=== PATIENT | male | born 1990 | race Caucasian/White ===

== ENCOUNTER 2018-03-31 16:56 | Inpatient (IN) | payer MEDICAID, OTHER ==
[2018-03-31] MEDS ORDERED: Sodium Chloride 0.9% 1,000 ML IV STA (17:21)
[2018-03-31] MEDS ORDERED: Sodium Chloride 0.9% 2,000 ML IV STA (17:23)
[2018-03-31 17:31] LABS: VENOUS BLOOD GAS BASE EXCESS -31.4 mmol/L (0.0-2.0); VENOUS BLOOD GAS PO2 85 mm/Hg (30-55)
--- NOTE | 2018-03-31 17:41 | RAD ---
HISTORY: DKA COMPARISON: Chest radiograph dated 07/20/2016. FINDINGS: LUNGS: No active pulmonary disease. PLEURA: No significant pleural effusion identified, no pneumothorax apparent. CARDIOVASCULAR: Normal. OSSEOUS STRUCTURES: No significant abnormalities. VISUALIZED UPPER ABDOMEN: Normal. OTHER FINDINGS: None. IMPRESSION: No active disease.
[2018-03-31 17:49] LABS: ALB/GLOB RATIO 1.5 (1.1-1.8); ALBUMIN 5.2 g/dL (3.0-4.8); ALT/SGPT 27 U/L (7-56); AST/SGOT 22 U/L (17-59); BLOOD UREA NITROGEN 10 mg/dL (7-21); CALCIUM 9.8 mg/dL (8.4-10.5); GFR AFRICAN-AMERICAN > 60; GFR NON-AFRICAN AMERICAN > 60
[2018-03-31 17:51] LABS: RBC 5.49 10^6/uL (3.5-6.1)
[2018-03-31 17:52] LABS: BASO # 0.04 K/mm3 (0.0-2.0); BASO % 0.1 % (0.0-3.0); GRAN # 22.98 (1.4-6.5); GRAN % 85.7 % (50.0-68.0); HEMOGLOBIN 16.4 g/dL (14.0-18.0); LYMPH # 2.2 (1.2-3.4); LYMPH % 8.3 % (22.0-35.0); MEAN CELL VOLUME 88.2 fl (80.0-105.0); MEAN CORPUSCULAR HEMOGLOBIN 29.9 pg (25.0-35.0); MEAN CORPUSCULAR HGB CONC 33.9 g/dl (31.0-37.0); MEAN PLATELET VOLUME 9.4 fl (7.0-11.0); MONO # 1.6 (0.1-0.6); MONO % 5.9 % (1.0-6.0); RED CELL DISTRIBUTION WIDTH 13.5 % (11.5-14.5)
[2018-03-31 17:53] LABS: WHITE BLOOD COUNT 26.8 10^3/ul (4.5-11.0)
[2018-03-31] MEDS: Insulin Regular 100 UNITS in Sodium Chloride 0.9% 99 ML IV PRN (18:01)
[2018-03-31] MEDS ORDERED: Etomidate 20 mg/10ml Inj IV ONE (18:09)
[2018-03-31] MEDS ORDERED: Propofol 10 mg/ml Inj (20 ML) ONE (18:09)
[2018-03-31] MEDS ORDERED: Sodium Bicarbonate (8.4%) 50 Meq Syringe IVP ONE (18:13)
[2018-03-31] MEDS ORDERED: Rocuronium 10 mg/ml (5 ml) ONE (18:19)
[2018-03-31] MEDS ORDERED: Sodium Chloride 0.9% 3,000 ML IV STA (18:26)
--- NOTE | 2018-03-31 18:29 | CP.PCM.HP ---
History of Present Illness - History of Present Illness History of Present Illness: Duglas Gifford PGY1 ICU Consult Note for Dr. Roberson Mr. Field is a 27yo M with a PMH of DM Past Patient History - Infectious Disease Hx of Infectious Diseases: None - Past Medical History & Family History Past Medical History?: Yes - Past Social History Smoking Status: Never Smoked - CARDIAC Hx Hypercholesterolemia: Yes - PULMONARY Hx Respiratory Disorders: No - NEUROLOGICAL Hx Neurological Disorder: No - HEENT Hx HEENT Problems: No - RENAL Hx Chronic Kidney Disease: No - ENDOCRINE/METABOLIC Hx Diabetes Mellitus Type 1: Yes (on humalog & lantus) - HEMATOLOGICAL/ONCOLOGICAL Hx Blood Disorders: Yes Other/Comment: Vit D def - INTEGUMENTARY Hx Dermatological Problems: No - MUSCULOSKELETAL/RHEUMATOLOGICAL Hx Musculoskeletal Disorders: No Hx Falls: No - GASTROINTESTINAL Hx Gastrointestinal Disorders: No - GENITOURINARY/GYNECOLOGICAL Hx Genitourinary Disorders: Yes Other/Comment: undescended testes - PSYCHIATRIC Hx Psychophysiologic Disorder: No Hx Substance Use: No - SURGICAL HISTORY Hx Surgeries: No - ANESTHESIA Hx Anesthesia: No Meds Allergies/Adverse Reactions: Allergies Allergy/AdvReac Type Severity Reaction Status Date / Time No Known Allergies Allergy Verified 03/06/18 23:23 Results - Vital Signs Recent Vital Signs: Last Vital Signs Temp 97.2 F L 03/31/18 17:24 Pulse 129 H 03/31/18 17:24 Resp 22 03/31/18 17:24 BP 126/92 H 03/31/18 17:24 Pulse Ox 100 03/31/18 17:24 - Labs Result Diagrams: 03/31/18 17:03 03/31/18 17:03 Labs: Laboratory Results - last 24 hr 03/31/18 03/31/18 03/31/18 17:03 17:03 17:03 WBC 26.8 H* D RBC 5.49 Hgb 16.4 Hct 48.4 MCV 88.2 MCH 29.9 MCHC 33.9 RDW 13.5 Plt Count 505 H MPV 9.4 Gran % 85.7 H Lymph % (Auto) 8.3 L [place] % (Auto) 5.9 Eos % (Auto) 0.0 L Baso % (Auto) 0.1 Gran # 22.98 H Lymph # (Auto) 2.2 Story # (Auto) 1.6 H Eos # (Auto) 0.0 Baso # (Auto) 0.04 pO2 85 H VBG pH 6.80 L* VBG pCO2 15.0 L* VBG HCO3 2.3 L VBG Total CO2 2.8 L VBG O2 Sat (Calc) 96.1 H VBG Base Excess -31.4 L VBG Potassium 6.1 H Sodium 135.0 145 Chloride 105.0 106 Glucose 560 H* D Lactate 2.4 H FiO2 21.0 Potassium 6.1 H* D Carbon Dioxide < 5 L D Anion Gap 40 H BUN 10 Creatinine 1.0 Est GFR ( Amer) > 60 Est GFR (Non-Af Amer) > 60 Random Glucose 551 H* D Calcium 9.8 Magnesium 2.5 H Total Bilirubin 0.5 AST 22 ALT 27 Alkaline Phosphatase 194 H D Total Protein 8.7 H Albumin 5.2 H Globulin 3.5 Albumin/Globulin Ratio 1.5 Venous Blood Potassium 6.1 H
--- NOTE | 2018-03-31 18:30 | CP.PCM.CON ---
<ИринаDuglas - Last Filed: 03/31/18 18:30> History of Present Illness - History of Present Illness History of Present Illness: Duglas Gifford PGY1 ICU Consult Note for Dr. Roberson Mr. Field is a 27yo M with a PMH of DM1 and medication non-compliance with frequent hospital [place] who is brought in by his father for shortness of breath. ICU is consulted and patient is seen in ICU. Patient is noted to be in respiratory distress and is minimally responsive to questions. Father states that the patient doesn't live with him and he's unsure of what medications he's taking or if he's been compliant but states he was just discharged from a hospital in [place]. ROS was limited due to patient's condition. Labs in ED noted pH 6.8, glucose 551, AG 35. Patient was receiving 3L of NS fluids at time of arrival. Also started on insulin drip; Potassium noted to be 6.1. Patient was intubated in ED to protect airway and due to his mental status. Review of Systems - Review of Systems Systems not reviewed;Unavailable: Acuity of Condition Past Patient History - Infectious Disease Hx of Infectious Diseases: None - ENDOCRINE/METABOLIC Hx Diabetes Mellitus Type 1: Yes (non-compliant with medications) - HEMATOLOGICAL/ONCOLOGICAL Other/Comment: Vit D def - ANESTHESIA Hx Anesthesia: No Meds Allergies/Adverse Reactions: Allergies Allergy/AdvReac Type Severity Reaction Status Date / Time No Known Allergies Allergy Verified 03/06/18 23:23 - Medications Medications: Current Medications Insulin Human Regular 100 (units/ Sodium Chloride) 100 mls @ 3 mls/hr IV .Q24H PRN; Protocol; 3 UNITS/HR PRN Reason: TITRATE PER MD ORDER Sodium Chloride (Sodium Chloride 0.9%) 2,000 mls @ 999 mls/hr IV .Q2H1M STA Stop: 03/31/18 19:23 Sodium Chloride (Sodium Chloride 0.9%) 3,000 mls @ 999 mls/hr IV .Q3H1M STA Stop: 03/31/18 21:26 Physical Exam - Constitutional Appears: In Acute Distress - Head Exam Head Exam: NORMAL INSPECTION - Eye Exam Eye Exam: Normal appearance - ENT Exam ENT Exam: Mucous Membranes Dry - Neck Exam Neck exam: Positive for: Normal Inspection - Respiratory Exam Respiratory Exam: Respiratory Distress - Cardiovascular Exam Cardiovascular Exam: Tachycardia - GI/Abdominal Exam GI & Abdominal Exam: Soft. absent: Distended, Tenderness - Extremities Exam Extremities exam: Positive for: normal inspection - Back Exam Back exam: NORMAL INSPECTION - Neurological Exam Neurological exam: Altered Results - Vital Signs Recent Vital Signs: Last Vital Signs Temp 97.2 F L 03/31/18 17:24 Pulse 129 H 03/31/18 17:24 Resp 22 03/31/18 17:24 BP 126/92 H 03/31/18 17:24 Pulse Ox 100 03/31/18 17:24 - Labs Result Diagrams: 03/31/18 17:03 03/31/18 17:03 Labs: Laboratory Results - last 24 hr 03/31/18 03/31/18 03/31/18 17:03 17:03 17:03 WBC 26.8 H* D RBC 5.49 Hgb 16.4 Hct 48.4 MCV 88.2 MCH 29.9 MCHC 33.9 RDW 13.5 Plt Count 505 H MPV 9.4 Gran % 85.7 H Lymph % (Auto) 8.3 L [place] % (Auto) 5.9 Eos % (Auto) 0.0 L Baso % (Auto) 0.1 Gran # 22.98 H Lymph # (Auto) 2.2 [place] # (Auto) 1.6 H Eos # (Auto) 0.0 Baso # (Auto) 0.04 pO2 85 H VBG pH 6.80 L* VBG pCO2 15.0 L* VBG HCO3 2.3 L VBG Total CO2 2.8 L VBG O2 Sat (Calc) 96.1 H VBG Base Excess -31.4 L VBG Potassium 6.1 H Sodium 135.0 145 Chloride 105.0 106 Glucose 560 H* D Lactate 2.4 H FiO2 21.0 Potassium 6.1 H* D Carbon Dioxide < 5 L D Anion Gap 40 H BUN 10 Creatinine 1.0 Est GFR ( Amer) > 60 Est GFR (Non-Af Amer) > 60 Random Glucose 551 H* D Calcium 9.8 Magnesium 2.5 H Total Bilirubin 0.5 AST 22 ALT 27 Alkaline Phosphatase 194 H D Total Protein 8.7 H Albumin 5.2 H Globulin 3.5 Albumin/Globulin Ratio 1.5 Venous Blood Potassium 6.1 H Assessment & Plan - Assessment and Plan (Free Text) Assessment: 27yo M with PMH of DM1 and medication non-compliance presenting in DKA with severe metabolic acidosis, respiratory distress and becoming altered. Leukocytosis and hyperkalemia are also noted. Plan: Neuro monitoring changes in mental status if agitated and at risk for self-extubation, may add sedation maintain normothermia neuro checks CV aggressive fluid resuscitation 3L NS given in ED, 3 more liters ordered for ICU currently no signs of hypotension, but will monitor vital signs closely Pulm patient is intubated and on vent maintain head of bed > 30 deg maintain proper hygiene with chlorhexidine will carry out daily weaning trials off vent GI GI ppx NPO Renal monitor lytes (especially potassium) while on insulin gtt Correct electrolytes monitor u/o Endo cont insulin drip until AG closes ID code sepsis was called will start broad spectrum abx procal ordered blood, urine cultures ordered ID will be consulted Heme leukocytosis noted; sepsis work up ordered monitor CBC Patient will be admitted to ICU for close monitoring Patient was seen and evaluated with attending, Dr. Roberson <Giuliano Roberson - Last Filed: 03/31/18 18:56> Meds - Medications Medications: Current Medications Insulin Human Regular 100 (units/ Sodium Chloride) 100 mls @ 3 mls/hr IV .Q24H PRN; Protocol; 3 UNITS/HR PRN Reason: TITRATE PER MD ORDER Last Admin: 03/31/18 18:01 Dose: 3 mls/hr Sodium Chloride (Sodium Chloride 0.9%) 2,000 mls @ 999 mls/hr IV .Q2H1M STA Stop: 03/31/18 19:23 Last Admin: 03/31/18 17:53 Dose: 999 mls/hr Sodium Chloride (Sodium Chloride 0.9%) 3,000 mls @ 999 mls/hr IV .Q3H1M STA Stop: 03/31/18 21:26 Last Admin: 03/31/18 18:35 Dose: 999 mls/hr Midazolam 100 mg/100ml in NS (Midazolam 100 Mg/100ml In Ns) 100 mg in 100 mls @ 1 mls/hr IV .Q24H PRN; Protocol; 1 MG/HR PRN Reason: Sedation Vancomycin HCl (Vancomycin 1gm) 1 gm in 250 mls @ 167 mls/hr IVPB STAT STA PRN Reason: Protocol Stop: 03/31/18 20:08 Results - Vital Signs Recent Vital Signs: Last Vital Signs Temp 97.2 F L 03/31/18 17:24 Pulse 126 H 03/31/18 18:44 Resp 27 H 03/31/18 18:44 BP 157/75 H 03/31/18 18:44 Pulse Ox 99 03/31/18 18:44 - Labs Result Diagrams: 03/31/18 17:03 03/31/18 17:03 Labs: Laboratory Results - last 24 hr 03/31/18 03/31/18 03/31/18 17:03 17:03 17:03 WBC 26.8 H* D RBC 5.49 Hgb 16.4 Hct 48.4 MCV 88.2 MCH 29.9 MCHC 33.9 RDW 13.5 Plt Count 505 H MPV 9.4 Gran % 85.7 H Lymph % (Auto) 8.3 L [place] % (Auto) 5.9 Eos % (Auto) 0.0 L Baso % (Auto) 0.1 Gran # 22.98 H Lymph # (Auto) 2.2 [place] # (Auto) 1.6 H Eos # (Auto) 0.0 Baso # (Auto) 0.04 pO2 85 H VBG pH 6.80 L* VBG pCO2 15.0 L* VBG HCO3 2.3 L VBG Total CO2 2.8 L VBG O2 Sat (Calc) 96.1 H VBG Base Excess -31.4 L VBG Potassium 6.1 H Sodium 135.0 145 Chloride 105.0 106 Glucose 560 H* D Lactate 2.4 H FiO2 21.0 Potassium 6.1 H* D Carbon Dioxide < 5 L D Anion Gap 40 H BUN 10 Creatinine 1.0 Est GFR ( Amer) > 60 Est GFR (Non-Af Amer) > 60 Random Glucose 551 H* D Calcium 9.8 Magnesium 2.5 H Total Bilirubin 0.5 AST 22 ALT 27 Alkaline Phosphatase 194 H D Total Protein 8.7 H Albumin 5.2 H Globulin 3.5 Albumin/Globulin Ratio 1.5 Venous Blood Potassium 6.1 H Assessment & Plan - Assessment and Plan (Free Text) Plan: Patient seen and examined with resident, agree with note with following additions/exceptions: Patient is 27yo male with PMHx of IDDM, non compliance, multiple hospitalizations for DKA, recent AMA signout at hospital in [place], presents with AMS, SOB as per the patients father. Pt noted to be in resp distress, altered, not following commands, subseuqently intubated in the ER. Labs with severe metabolic derangements, given 3L NS bolus. Currently intubated, sedated, not able to provide history. Patient is afebrile, BP stable. DKA Metabolic Acidosis Severe Sepsis Leukocytosis Dehydration DM Recommend: - vent support, low tidal vol ventilation, obtain ABG, post intubation CXR, duonebs PRN, daily sedation vacation/CPAP trials when appropriate - broad spectrum abx, Vanco, Merrem, check Procal, UA, UCx, BCx, obtain ID consult - aggressive IV hydration, would bolus additional 3L bolus (patient has UOP 1.5L thus far) - IV maintenance - BMP qh4r - NPO - Insulin drip, 0.1u/kg/hr - check Mg, Phos - check HgbA1C, Lipid Panel, TSH - Endo eval - check EKG, troponin - monitor LFTs - FS q1hr - GI ppx - DVT ppx - Monitor in MICU Critical care time 40 minutes
[2018-03-31] MEDS ORDERED: Rocuronium 10 mg/ml (5 ml) IVP STA (18:36)
[2018-03-31] MEDS ORDERED: Propofol 10 mg/ml Inj (20 ML) IVP STA (18:36)
[2018-03-31] MEDS ORDERED: Etomidate 20 mg/10ml Inj IVP STA (18:36)
[2018-03-31] MEDS ORDERED: Vancomycin 1gm in NS 250ml 1 GM/250 ML BAG IVPB STA (18:39)
--- NOTE | 2018-03-31 18:51 | ED PDOC ---
Arrival/HPI - General Chief Complaint: High Blood Sugar Time Seen by Provider: 03/31/18 16:58 Historian: Patient - History of Present Illness Narrative History of Present Illness (Text): 03/31/18 17:17 A 27 year old male, whose past medical history includes IDDM, who is brought in by EMS to the emergency department for AMS. Per family, patient is non- compliant with Insulin. Patient had signed out against medical advice from an ICU unit in [place] 2-3 days ago. Family denies patient any documented fever, and the rest of the history is unattainable at this time secondary to patient's AMS. No PMD Past Medical History - Provider Review Nursing Documentation Reviewed: Yes - Infectious Disease Hx of Infectious Diseases: None - Cardiac Hx Cardiac Disorders: Yes - Pulmonary Hx Respiratory Disorders: No - Neurological Hx Neurological Disorder: No - HEENT Hx HEENT Disorder: No - Renal Hx Renal Disorder: No - Endocrine/Metabolic Hx Diabetes Mellitus Type 1: Yes (non-compliant with medications) - Hematological/Oncological Other/Comment: Vit D def - Integumentary Hx Dermatological Disorder: No - Musculoskeletal/Rheumatological Hx Musculoskeletal Disorders: No Hx Falls: No - Gastrointestinal Hx Gastrointestinal Disorders: No - Genitourinary/Gynecological Hx Genitourinary Disorders: Yes Other/Comment: undescended testes - Psychiatric Hx Psychophysiologic Disorder: No Hx Substance Use: No - Surgical History Other/Comment: Has surgery during childhood but does not remember what - Anesthesia Hx Anesthesia: No - Suicidal Assessment Feels Threatened In Home Enviroment: No Family/Social History - Physician Review Nursing Documentation Reviewed: Yes Family/Social History: No Known Family HX Smoking Status: Never Smoked Hx Alcohol Use: No Hx Substance Use: No Allergies/Home Meds Allergies/Adverse Reactions: Allergies No Known Allergies Allergy (Verified 03/06/18 23:23) Review of Systems - Review of Systems Systems not reviewed;Unavailable: Altered Mental Status Physical Exam Vital Signs Reviewed: Yes Vital Signs Temp Pulse Resp BP Pulse Ox 03/31/18 20:07 127 H 18 123/78 98 03/31/18 18:44 126 H 27 H 157/75 H 99 03/31/18 18:19 124 H 33 H 138/92 H 98 03/31/18 18:14 126 H 36 H 150/83 98 03/31/18 18:08 124 H 44 H 146/55 L 100 03/31/18 17:24 97.2 F L 129 H 22 126/92 H 100 03/31/18 16:58 97.2 F L 125 H 26 H 126/92 H 99 Temperature: Febrile Blood Pressure: Normal Pulse: Tachycardic Respiratory Rate: Tachypneic Appearance: Positive for: Well-Appearing Pain Distress: None Mental Status: Positive for: other (patient in AMS; responsive to painful stimuli) Finger Stick Blood Glucose: 402 - Systems Exam Mouth: Present: Dry Respiratory/Chest: Present: Clear to Auscultation, Tachypneic Cardiovascular: Present: Tachycardic Abdomen: No: Tenderness, Distention, Peritoneal Signs Psychiatric: Present: Other (patient in AMS; responsive to painful stimuli). No : Alert, Oriented x 3 Medical Decision Making ED Course and Treatment: 03/31/18 17:21 Impression: 27 year old male with AMS. Plan: -- EKG -- Chest X-ray -- Labs -- Amidate -- IV Fluids -- Zemuron -- Diprivan -- Vancomycin -- Versed IV Drip's -- Blood Culture -- Urine Culture -- Urinalysis -- Ventilator -- Arterial Blood Gas -- Venous Blood Gas -- Reassess and disposition Progress Notes: EKG: Ordered, reviewed, and independently interpreted the EKG. Rate : 129 BPM Rhythm : Sinus tachycardia. Interpretation : Normal access. Bilateral atrial enlargement. Comparison : No previous EKG for comparison. Patient immediately started on intravenous fluids and Insulin drip. Determined by emergency department and ICU staff that patient requires intubation for impending respiratory failure. 03/31/2018 17:39 Chest X-ray IMPRESSION: No active disease. Dictator: Samy Diego MD PROCEDURE: INTUBATION Performed by the emergency provider Time: 18:00 Timeout: A timeout to verify the correct patient, procedure, and site was performed. Indication: Impending respiratory failure. Pre-oxygenation: [id number] Medications: See MAR for details. ETT Size: 7.5 Confirmation: Cords directly visualized as tube passed, good bilateral breath sounds, positive CO2 detector color change, tube fogging, adequate chest rise, improving pulse oximetry reading, improved skin color, and absence of gastric sounds,. ETT Secured: The cuff was inflated and the tube was secured appropriately at a distance of 22 cm at the lip. Post-Procedure: There were no immediate complications. CXR Confirmation: Yes - Critical Care Critical Care Minutes: 90 minutes - Lab Interpretations Lab Results: 03/31/18 17:03 03/31/18 17:03 Lab Results 03/31/18 18:01: POC Glucose (mg/dL) 402 H* 03/31/18 17:03: Phosphorus 5.8 H 03/31/18 17:03: Sodium 145, Chloride 106, Potassium 6.1 H* D, Carbon Dioxide < 5 L D, Anion Gap 40 H, BUN 10, Creatinine 1.0, Est GFR ( Amer) > 60, Est GFR (Non-Af Amer) > 60, Random Glucose 551 H* D, Calcium 9.8, Magnesium 2.5 H, Total Bilirubin 0.5, AST 22, ALT 27, Alkaline Phosphatase 194 H D, Total Protein 8.7 H, Albumin 5.2 H, Globulin 3.5, Albumin/Globulin Ratio 1.5 03/31/18 17:03: pO2 85 H, VBG pH 6.80 L*, VBG pCO2 15.0 L*, VBG HCO3 2.3 L, VBG Total CO2 2.8 L, VBG O2 Sat (Calc) 96.1 H, VBG Base Excess -31.4 L, VBG Potassium 6.1 H, Sodium 135.0, Chloride 105.0, Glucose 560 H* D, Lactate 2.4 H, FiO2 21.0, Venous Blood Potassium 6.1 H 03/31/18 17:03: WBC 26.8 H* D, RBC 5.49, Hgb 16.4, Hct 48.4, MCV 88.2, MCH 29.9 , MCHC 33.9, RDW 13.5, Plt Count 505 H, MPV 9.4, Gran % 85.7 H, Lymph % (Auto) 8.3 L, Dupage % (Auto) 5.9, Eos % (Auto) 0.0 L, Baso % (Auto) 0.1, Gran # 22.98 H , Lymph # (Auto) 2.2, Dupage # (Auto) 1.6 H, Eos # (Auto) 0.0, Baso # (Auto) 0.04 - RAD Interpretation Radiology Orders: 03/31/18 17:21 CHEST PORTABLE [RAD] Stat 03/31/18 18:39 CHEST PORTABLE [RAD] Stat - Medication Orders Current Medication Orders: Heparin Sodium (Porcine) (Heparin) 5,000 units SC Q12 WILIAN PRN Reason: Protocol Last Admin: 04/01/18 00:00 Dose: 5,000 units Subcutaneous Administrations Document 04/01/18 00:00 KGD (Rec: 04/01/18 02:54 KGD [id number]) Injection Site MAR Injection Site Right Abdomen Charges for Administration # of Subcutaneous Administrations 1 Insulin Human Regular 100 (units/ Sodium Chloride) 100 mls @ 3 mls/hr IV .Q24H PRN; Protocol; 3 UNITS/HR PRN Reason: TITRATE PER MD ORDER Last Admin: 03/31/18 18:01 Dose: 3 mls/hr eMAR Start Stop Document 03/31/18 18:01 [place] (Rec: 03/31/18 18:02 [place] [email or web address] Intravenous Solution Start Date 03/31/18 Start Time 18:01 MAR Blood Glucose Document 03/31/18 18:01 LA (Rec: 03/31/18 18:02 [place] [email or web address] Blood Glucose Finger Stick Blood Glucose (70-120) 402 Midazolam 100 mg/100ml in NS (Midazolam 100 Mg/100ml In Ns) 100 mg in 100 mls @ 1 mls/hr IV .Q24H PRN; Protocol; 1 MG/HR PRN Reason: Sedation Last Titration: 04/01/18 05:26 Dose: 8 mg/hr, 8 mls/hr Fitzpatrick Agitation Sedation Document 04/01/18 05:26 KGD (Rec: 04/01/18 05:26 KGD [id number]) Fitzpatrick Agitation Sedation Scale Fitzpatrick Agitation Sedation Scale Score -2 Light Sedation: briefly awakens with eye contact to voice (<10 sec) Titration Intervention Document 04/01/18 05:26 KGD (Rec: 04/01/18 05:26 KGD [id number]) Titration Intake Titration Intake 0 Cumulative Intake 0 Cumulative Intake (Rx) 99 Waste Amount 0 Container Volume 100 Titration Dosing Titration Dose 8 IV Rate 8 Intake/Decrease Decreased Cumulative Dose 99 Sodium Bicarbonate 150 meq/ (Dextrose) 1,150 mls @ 200 mls/hr IV .Q5H45M WILIAN Last Admin: 04/01/18 05:29 Dose: 200 mls/hr eMAR Start Stop Document 04/01/18 05:29 KGD (Rec: 04/01/18 05:29 KGD [id number]) Intravenous Solution Start Date 04/01/18 Start Time 05:29 Meropenem (Merrem Iv 1 Gm Premix) 50 mls @ 100 mls/hr IVPB Q8 WILIAN PRN Reason: Protocol Stop: 04/10/18 06:01 Last Admin: 04/01/18 06:01 Dose: 100 mls/hr eMAR Start Stop Document 04/01/18 06:01 KGD (Rec: 04/01/18 06:01 KGD [id number]) Intravenous Solution Start Date 04/01/18 Start Time 06:01 Vancomycin HCl (Vancomycin 1gm) 1 gm in 250 mls @ 167 mls/hr IVPB Q12 WILIAN PRN Reason: Protocol Propofol (Diprivan) 1,000 mg in 100 mls @ 2.245 mls/hr IV .Q24H PRN; Protocol; 5 MCG/KG/MIN PRN Reason: TITRATE PER MD ORDER Last Admin: 04/01/18 03:00 Dose: 50 mcg/kg/min, 22.453 mls/hr eMAR Start Stop Document 04/01/18 03:00 KGD (Rec: 04/01/18 04:34 KGD [id number]) Intravenous Solution Start Date 04/01/18 Start Time 04:34 Fitzpatrick Agitation Sedation Document 04/01/18 03:00 KGD (Rec: 04/01/18 04:34 KGD [id number]) Fitzpatrick Agitation Sedation Scale Fitzpatrick Agitation Sedation Scale Score +2 Agitated: Frequent non- purposeful movement, fights ventilator Titration Intervention Document 04/01/18 03:00 KGD (Rec: 04/01/18 04:34 KGD [id number]) Titration Intake Cumulative Intake (Rx) 100 Waste Amount 0 Container Volume 100 Titration Dosing Titration Dose 50 IV Rate 22.453 Intake/Decrease Started/Running Cumulative Dose 1000 Acetaminophen (Ofirmev) 1,000 mg in 100 mls @ 400 mls/hr IVPB Q6H PRN PRN Reason: Temperature Stop: 04/03/18 01:31 Last Admin: 04/01/18 02:06 Dose: 400 mls/hr eMAR Start Stop Document 04/01/18 02:06 KGD (Rec: 04/01/18 02:06 KGD [id number]) Intravenous Solution Start Date 04/01/18 Start Time 02:06 MAR Pain Assessment Document 04/01/18 02:06 KGD (Rec: 04/01/18 02:06 KGD [id number]) Pain Reassessment Is this a pain reassessment? No Re-Assess: [facility] Pain Assessment Document 04/01/18 03:06 KGD (Rec: 04/01/18 04:34 KGD [id number]) Pain Reassessment Is this a pain reassessment? Yes Potassium Phosphate 45 mmole/ (Sodium Chloride) 265 mls @ 42.5 mls/hr IVPB ONCE ONE Stop: 04/01/18 09:17 Last Admin: 04/01/18 04:01 Dose: 42.5 mls/hr eMAR Start Stop Document 04/01/18 04:01 KGD (Rec: 04/01/18 04:01 KGD [id number]) Intravenous Solution Start Date 04/01/18 Start Time 04:01 Potassium Chloride 20 meq/ (Dextrose/Sodium Chloride) 1,010 mls @ 150 mls/hr IV .Q6H44M WILIAN Last Admin: 04/01/18 05:28 Dose: 150 mls/hr eMAR Start Stop Document 04/01/18 05:28 KGD (Rec: 04/01/18 05:29 KGD [id number]) Intravenous Solution Start Date 04/01/18 Start Time 05:28 Pantoprazole Sodium (Protonix Inj) 40 mg IVP DAILY WILIAN Discontinued Medications Etomidate (Amidate) 20 mg IVP STAT STA Stop: 03/31/18 18:37 Last Admin: 03/31/18 18:15 Dose: 20 mg IVP Administration Document 03/31/18 18:15 [email or web address] (Rec: 03/31/18 18:53 [email or web address] [id number]) Charges for Administration # of IVP Administrations 1 Fentanyl (Fentanyl) 50 mcg IVP ONCE ONE Stop: 04/01/18 03:24 Last Admin: 04/01/18 03:45 Dose: 50 mcg [facility] Pain Assessment Document 04/01/18 03:45 KGD (Rec: 04/01/18 03:45 KGD [id number]) Pain Reassessment Is this a pain reassessment? No IVP Administration Document 04/01/18 03:45 KGD (Rec: 04/01/18 03:45 KGD [id number]) Charges for Administration # of IVP Administrations 1 Re-Assess: MAR Pain Assessment Document 04/01/18 04:45 KGD (Rec: 04/01/18 05:25 KGD [id number]) Pain Reassessment Is this a pain reassessment? No Fentanyl (Fentanyl) 50 mcg IVP ONCE ONE Stop: 04/01/18 05:05 Last Admin: 04/01/18 06:01 Dose: 50 mcg MAR Pain Assessment Document 04/01/18 06:01 KGD (Rec: 04/01/18 06:02 KGD [id number]) Pain Reassessment Is this a pain reassessment? No Presence of Pain Presence of Pain No IVP Administration Document 04/01/18 06:01 KGD (Rec: 04/01/18 06:02 KGD [id number]) Charges for Administration # of IVP Administrations 1 Sodium Chloride (Sodium Chloride 0.9%) 1,000 mls @ 999 mls/hr IV .Q1H1M STA Stop: 03/31/18 18:21 Last Admin: 03/31/18 17:51 Dose: 999 mls/hr eMAR Start Stop Document 03/31/18 17:51 [place] (Rec: 03/31/18 17:51 [place] [email or web address] Intravenous Solution Start Date 03/31/18 Start Time 17:51 Sodium Chloride (Sodium Chloride 0.9%) 2,000 mls @ 999 mls/hr IV .Q2H1M STA Stop: 03/31/18 19:23 Last Admin: 03/31/18 17:53 Dose: 999 mls/hr eMAR Start Stop Document 03/31/18 17:53 LA (Rec: 03/31/18 17:53 [place] [email or web address] Intravenous Solution Start Date 03/31/18 Start Time 17:25 Sodium Chloride (Sodium Chloride 0.9%) 3,000 mls @ 999 mls/hr IV .Q3H1M STA Stop: 03/31/18 21:26 Last Admin: 03/31/18 18:35 Dose: 999 mls/hr eMAR Start Stop Document 03/31/18 18:35 [email or web address] (Rec: 03/31/18 18:35 [email or web address] [id number]) Intravenous Solution Start Date 03/31/18 Start Time 18:35 Vancomycin HCl 1.5 gm/ Sodium (Chloride) 500 mls @ 167 mls/hr IVPB Q12H WILIAN PRN Reason: Protocol Last Admin: 03/31/18 20:52 Dose: 167 mls/hr eMAR Start Stop Document 03/31/18 20:52 KGD (Rec: 03/31/18 20:54 KGD [id number]) Intravenous Solution Start Date 03/31/18 Start Time 20:54 Dextrose/Sodium Chloride (Dextrose 5%/0.9% Ns 1000 Ml) 1,000 mls @ 200 mls/hr IV .Q5H WILIAN Potassium Chloride (Potassium Chloride 10 Meq/100 Ml) 10 meq in 100 mls @ 50 mls/hr IVPB ONCE ONE Stop: 04/01/18 04:19 Last Admin: 04/01/18 02:54 Dose: 50 mls/hr eMAR Start Stop Document 04/01/18 02:54 KGD (Rec: 04/01/18 02:54 KGD [id number]) Intravenous Solution Start Date 04/01/18 Start Time 02:54 Potassium Chloride 20 meq/ (Dextrose/Sodium Chloride) 1,010 mls @ 200 mls/hr IV .Q5H3M WILIAN Potassium Phosphate 15 mmole/ (Sodium Chloride) 255 mls @ 42.5 mls/hr IVPB ONCE ONE Stop: 04/01/18 09:02 Pneumococcal Polyvalent Vaccine (Pneumovax 23 Vaccine) 0.5 ml IM .ONCE ONE Stop: 04/01/18 01:24 Potassium Chloride (Potassium Chloride Oral Soln) 40 meq PO ONCE ONE Stop: 04/01/18 02:21 Last Admin: 04/01/18 04:01 Dose: 40 meq Propofol (Diprivan) 70 mg IVP STAT STA Stop: 03/31/18 18:37 Last Admin: 03/31/18 18:16 Dose: 70 mg IVP Administration Document 03/31/18 18:16 [email or web address] (Rec: 03/31/18 18:56 [email or web address] [id number]) Charges for Administration # of IVP Administrations 1 Rocuronium Fieldon (Zemuron) 50 mg IVP STAT STA Stop: 03/31/18 18:37 Last Admin: 03/31/18 18:19 Dose: 50 mg Sodium Bicarbonate (Sodium Bicarbonate 8.4% (50 Meq) Syringe) 50 meq IVP STAT STA Stop: 03/31/18 19:05 Last Admin: 03/31/18 18:15 Dose: 50 meq IVP Administration Document 03/31/18 18:15 [email or web address] (Rec: 03/31/18 19:07 [email or web address] [id number]) Charges for Administration # of IVP Administrations 1 Sodium Bicarbonate (Sodium Bicarbonate 8.4% (50 Meq) Syringe) 50 meq IVP STAT STA Stop: 03/31/18 19:05 Last Admin: 03/31/18 19:08 Dose: 50 meq IVP Administration Document 03/31/18 19:08 [email or web address] (Rec: 03/31/18 19:08 [email or web address] [id number]) Charges for Administration # of IVP Administrations 1 Sodium Bicarbonate (Sodium Bicarbonate 8.4% (50 Meq) Syringe) 50 meq IVP STAT STA Stop: 03/31/18 19:06 Last Admin: 03/31/18 19:09 Dose: 50 meq IVP Administration Document 03/31/18 19:09 [email or web address] (Rec: 03/31/18 19:09 [email or web address] [id number]) Charges for Administration # of IVP Administrations 1 - Scribe Statement The provider has reviewed the documentation as recorded by the Dwight Carlson Provider Scribe Attestation: All medical record entries made by the Scribe were at my direction and personally dictated by me. I have reviewed the chart and agree that the record accurately reflects my personal performance of the history, physical exam, medical decision making, and the department course for this patient. I have also personally directed, reviewed, and agree with the discharge instructions and disposition. Disposition/Present on Arrival - Present on Arrival Any Indicators Present on Arrival: Yes History of DVT/PE: No History of Uncontrolled Diabetes: Yes Urinary Catheter: No History of Decub. Ulcer: No History Surgical Site Infection Following: None - Disposition Have Diagnosis and Disposition been Completed?: Yes Diagnosis: DKA, type 1, Sepsis, Respiratory failure, Hyperkalemia Disposition: HOSPITALIZED Disposition Time: 18:50 Patient Plan: ICU Condition: CRITICAL
[2018-03-31 19:00] LABS: ARTERIAL BLOOD GAS O2 SAT 100.8 % (95-98); ARTERIAL BLOOD GAS PCO2 19 mm/Hg (35-45)
[2018-03-31] MEDS ORDERED: Vancomycin 1.5 GM in Sodium Chloride 0.9% 500 ML IVPB SCH (19:00)
[2018-03-31 19:02] LABS: ARTERIAL BLOOD GAS PH < 6.80 (7.35-7.45)
[2018-03-31] MEDS: Midazolam 100 mg/100ml in NS 100 MG/100 ML SOL IV PRN (19:02)
[2018-03-31] MEDS ORDERED: Sodium Bicarbonate (8.4%) 50 Meq Syringe IVP STA ×3 (19:04→19:05)
[2018-03-31] MEDS: Sodium Bicarbonate 8.4% 150 MEQ in Dextrose 5% In Water 1,000 ML IV SCH (20:54)
[2018-03-31 21:24] LABS: VENOUS BLOOD GAS BASE EXCESS -17.1 mmol/L (0.0-2.0); VENOUS BLOOD GAS PO2 43 mm/Hg (30-55); VENOUS BLOOD PH 7.03 (7.32-7.43)
[2018-03-31 21:31] LABS: URINE BILIRUBIN NEGATIVE (NEGATIVE); URINE BLOOD MODERATE (NEGATIVE); URINE GLUCOSE (UA) 250 mg/dL (NEGATIVE); URINE LEUKOCYTE ESTERASE NEGATIVE Leu/uL (NEGATIVE); URINE PROTEIN 30 mg/dL (<30 mg/dL); URINE UROBILINOGEN 0.2 E.U./dL (<1 E.U./dL)
[2018-03-31 21:35] LABS: INR 0.95 (0.93-1.08); PROTHROMBIN TIME 10.8 SECONDS (9.4-12.5)
[2018-03-31 21:37] LABS: URINE APPEARANCE CLEAR (CLEAR); URINE COLOR YELLOW (YELLOW)
[2018-03-31 21:39] LABS: URINE RBC 20 - 25 /hpf (0-2)
[2018-03-31 21:44] LABS: BLOOD UREA NITROGEN 9 mg/dL (7-21); CALCIUM 6.4 mg/dL (8.4-10.5); GFR AFRICAN-AMERICAN > 60; GFR NON-AFRICAN AMERICAN > 60
[2018-03-31 21:45] LABS: ARTERIAL BLOOD GAS HEMOGLOBIN 12.9 g/dL (11.7-17.4); ARTERIAL BLOOD GAS O2 CAPACITY 19.3 mL/dl (16-24); ARTERIAL BLOOD GAS O2 CONTENT 19.3 ML/dl (15-23); ARTERIAL BLOOD GAS PCO2 17 mm/Hg (35-45); ARTERIAL BLOOD GAS TCO2 5.5 mmol.L (22-28)
[2018-03-31 21:48] LABS: ARTERIAL BLOOD GAS PH 7.08 (7.35-7.45)
[2018-03-31] MEDS ORDERED: Meropenem 500 MG in Sodium Chloride 0.9% 50 ML IVPB SCH (22:00)
--- NOTE | 2018-03-31 22:08 | PCM.SEPTIC ---
Sepsis Progress Note - Reassessment Type Date of Evaluation: 03/31/18 Time of Evaluation: 22:06 Reassessment Type: Non-invasive reassessment - Non Invasive Reassessment Were the most recent vital sign reviewed: Yes Vital Sign (Latest): Temp Pulse Resp BP Pulse Ox 97.2 F L 127 H 18 123/78 98 03/31/18 17:24 03/31/18 20:07 03/31/18 20:07 03/31/18 20:07 03/31/18 20:07 Cardiovascular: Yes: Tachycardia Respiratory: Yes: Other (ventilated respiratory rate 50) Capillary Refill: Normal (Less than 2 sec) Pulses: Normal Radial Skin: Warm, Dry Was a central venous oxygen measurement obtained within 6 hours after the presentation of septic shock: No
[2018-03-31] MEDS ORDERED: Propofol 10 mg/ml 1,000 MG/100 ML VIAL ONE (22:17)
[2018-03-31] MEDS: Propofol 10 mg/ml 1,000 MG/100 ML VIAL IV PRN (22:20)
[2018-03-31] MEDS ORDERED: Dextrose 5%/0.9% NS 1,000 ML IV SCH (22:30)
[2018-04-01 01:09] LABS: ARTERIAL BLOOD GAS HCO3 11.3 mmol/L (21-28); ARTERIAL BLOOD GAS O2 SAT 99.8 % (95-98); ARTERIAL BLOOD GAS PCO2 23 mm/Hg (35-45)
[2018-04-01 01:23] VITALS: BMI 24.6
[2018-04-01] MEDS ORDERED: Pneumococcal 23-Valent Vaccine IM ONE (01:23)
[2018-04-01] MEDS ORDERED: Potassium Chloride 40 mEq/30 ml LIQ UD PO ONE (02:20)
[2018-04-01] MEDS ORDERED: Potassium Chloride 20 MEQ in Dextrose 5%/0.9% NS 1,000 ML IV SCH ×2 (02:33→03:12)
[2018-04-01 02:54] LABS: ALB/GLOB RATIO 1.3 (1.1-1.8); ALBUMIN 3.1 g/dL (3.0-4.8); ALT/SGPT 24 U/L (7-56); AST/SGOT 20 U/L (17-59); BLOOD UREA NITROGEN 8 mg/dL (7-21); CALCIUM 7.6 mg/dL (8.4-10.5); GFR AFRICAN-AMERICAN > 60; GFR NON-AFRICAN AMERICAN > 60
[2018-04-01] MEDS: Midazolam 100 mg/100ml in NS 100 MG/100 ML SOL IV PRN (02:55)
[2018-04-01] MEDS: Propofol 10 mg/ml 1,000 MG/100 ML VIAL IV PRN ×2 (03:00→09:23)
[2018-04-01] MEDS ORDERED: Potassium Phosphate 15 MMOLE in Sodium Chloride 0.9% 250 ML IVPB ONE (03:03)
[2018-04-01] MEDS ORDERED: SODIUM CHLORIDE IVPB ONE (03:11)
[2018-04-01] MEDS ORDERED: POTASSIUM PHOSPHATE IVPB ONE (03:11)
[2018-04-01] MEDS: Sodium Bicarbonate 8.4% 150 MEQ in Dextrose 5% In Water 1,000 ML IV SCH ×3 (05:29→09:27)
[2018-04-01 05:46] LABS: MEAN CORPUSCULAR HEMOGLOBIN 28.6 pg (25.0-35.0); MEAN CORPUSCULAR HGB CONC 34.3 g/dl (31.0-37.0); MEAN PLATELET VOLUME 8.4 fl (7.0-11.0); RBC 4.27 10^6/uL (3.5-6.1); RED CELL DISTRIBUTION WIDTH 13.6 % (11.5-14.5); WHITE BLOOD COUNT 13.3 10^3/ul (4.5-11.0)
[2018-04-01 05:47] LABS: INR 0.95 (0.93-1.08); PARTIAL THROMBOPLASTIN TIME 24.1 Seconds (25.1-36.5); PROTHROMBIN TIME 10.9 SECONDS (9.4-12.5)
[2018-04-01 05:54] LABS: LDL CHOLESTEROL 73 mg/dL (0-129)
[2018-04-01 05:56] LABS: HEMOGLOBIN 12.2 g/dL (14.0-18.0); MEAN CELL VOLUME 83.4 fl (80.0-105.0)
[2018-04-01] MEDS: Meropenem IV 1 gm in NS 50 ML IVPB SCH ×3 (06:01→22:24)
[2018-04-01 06:19] LABS: ARTERIAL BLOOD GAS HEMOGLOBIN 9.5 g/dL (11.7-17.4); ARTERIAL BLOOD GAS O2 CAPACITY 13.7 mL/dl (16-24); ARTERIAL BLOOD GAS O2 CONTENT 13.7 ML/dl (15-23); ARTERIAL BLOOD GAS PH 7.23 (7.35-7.45); ARTERIAL BLOOD GAS TCO2 7.6 mmol.L (22-28)
[2018-04-01 06:24] LABS: ARTERIAL BLOOD GAS HCO3 7.1 mmol/L (21-28); ARTERIAL BLOOD GAS PCO2 17 mm/Hg (35-45)
[2018-04-01 06:35] LABS: ALB/GLOB RATIO 1.3 (1.1-1.8); ALBUMIN 3.1 g/dL (3.0-4.8); ALT/SGPT 32 U/L (7-56); AMYLASE 274 U/L (35-125); AST/SGOT 20 U/L (17-59); BLOOD UREA NITROGEN 7 mg/dL (7-21); CALCIUM 7.8 mg/dL (8.4-10.5); GFR AFRICAN-AMERICAN > 60; GFR NON-AFRICAN AMERICAN > 60; HDL CHOLESTEROL 52 mg/dL (29-60); LIPASE 634 U/L (23-300)
--- NOTE | 2018-04-01 07:48 | CARD ---
APPROVED REPORT EKG Measurement Heart [id number] PA 136P79 [id number] <Conclusion> Sinus tachycardia Biatrial enlargement ST abnormality Abnormal ECG
[2018-04-01] MEDS ORDERED: Magnesium 2 gm/50 ml NS 2 GM/50 ML BAG IVPB ONE (08:21)
[2018-04-01] MEDS: Vancomycin 1gm in NS 250ml 1 GM/250 ML BAG IVPB SCH ×2 (09:14→22:24)
--- NOTE | 2018-04-01 09:56 | CP.PCM.HP ---
History of Present Illness - History of Present Illness History of Present Illness: H&P for Hospitalist Service Dr. Santos CC: shortness of breath, DKA HPI: Patient is a 27 year old male with past medical history of DM type 1, medical non-compliance, and recent AMA from hospital admission for DKA. Patient was brought to [facility] complaining of shortness of breath and lethargy. Patient was evaluated in ED and found to have an VBG showing a pH of 6.8, blood glucose of 551, Anion Gap of 35 and Kussmal breathing. Patient was intubated for protection of his airway and placed on ventilator. Patient was administered 3 L of NS fluids, 3 amps of bicarb and insulin drip was initiated. Discussion with patient family indicated the son lives in [place] and was thus unable to provide an accurate account of patient recent medical history. 12 point ROS was unobtainable secondary to patient being sedated and intubated. Patient was evaluated and accepted by ICU service. PMH: IDDM, HLD PSH: Review of chart patient previously denied SocHx: Aleksey 3-4 times weekly, [place] FMH: Father with IDDM ALL: NKDA MEDS: Previous records indicate Insulin 18 units at lunchtime Present on Admission - Present on Admission Any Indicators Present on Admission: Yes History of Uncontrolled Diabetes: Yes Review of Systems - Review of Systems Review of Systems: Unable to obtain secondary to being intubated and sedated Past Patient History - Infectious Disease Hx of Infectious Diseases: None - Past Medical History & Family History Past Medical History?: Yes - Past Social History Smoking Status: Never Smoked - CARDIAC Hx Cardiac Disorders: Yes - PULMONARY Hx Respiratory Disorders: No - NEUROLOGICAL Hx Neurological Disorder: No - HEENT Hx HEENT Problems: No - RENAL Hx Chronic Kidney Disease: No - ENDOCRINE/METABOLIC Hx Diabetes Mellitus Type 1: Yes (non-compliant with medications) - HEMATOLOGICAL/ONCOLOGICAL Other/Comment: Vit D def - INTEGUMENTARY Hx Dermatological Problems: No - MUSCULOSKELETAL/RHEUMATOLOGICAL Hx Musculoskeletal Disorders: No Hx Falls: No - GASTROINTESTINAL Hx Gastrointestinal Disorders: No - GENITOURINARY/GYNECOLOGICAL Hx Genitourinary Disorders: Yes Other/Comment: undescended testes - PSYCHIATRIC Hx Psychophysiologic Disorder: No Hx Substance Use: No - SURGICAL HISTORY Other/Comment: Has surgery during childhood but does not remember what - ANESTHESIA Hx Anesthesia: No Meds Allergies/Adverse Reactions: Allergies Allergy/AdvReac Type Severity Reaction Status Date / Time No Known Allergies Allergy Verified 03/06/18 23:23 Physical Exam - Constitutional Additional comments: Young appearing male who is intubated and sedated - Head Exam Head Exam: ATRAUMATIC, NORMAL INSPECTION, NORMOCEPHALIC - Eye Exam Eye Exam: PERRL - ENT Exam ENT Exam: Mucous Membranes Dry - Respiratory Exam Respiratory Exam: Clear to Auscultation Bilateral, NORMAL BREATHING PATTERN. absent: Rales, Rhonchi, Wheezes - Cardiovascular Exam Cardiovascular Exam: Tachycardia - GI/Abdominal Exam GI & Abdominal Exam: Diminished Bowel Sounds, Soft. absent: Distended, Firm - Extremities Exam Extremities exam: Negative for: pedal edema - Neurological Exam Additional comments: Patient intubated and sedated, noted to have spontaneous movement of all four extremities, patient responding to painful stimuli - Skin Skin Exam: Dry, Pallor Results - Vital Signs Recent Vital Signs: Last Vital Signs Temp 98.1 F 04/01/18 07:00 Pulse 121 H 04/01/18 07:00 Resp 26 H 04/01/18 07:15 BP 139/74 04/01/18 07:00 Pulse Ox 100 04/01/18 07:15 - Labs Result Diagrams: 04/01/18 05:05 04/01/18 05:05 Labs: Laboratory Results - last 24 hr 03/31/18 03/31/18 03/31/18 18:56 20:06 20:15 WBC RBC Hgb Hct MCV MCH MCHC RDW Plt Count MPV PT INR APTT pCO2 19 L* pO2 554.0 H HCO3 TEST NOT PERFORMED ABG pH < 6.80 L* ABG Total CO2 TEST NOT PERFORMED ABG O2 Saturation 100.8 H ABG O2 Content ABG Base Excess TEST NOT PERFORMED ABG Hemoglobin ABG Carboxyhemoglobin POC ABG HHb (Measured) ABG Methemoglobin ABG O2 Capacity ABG Potassium 4.9 VBG pH VBG pCO2 VBG HCO3 VBG Total CO2 VBG O2 Sat (Calc) VBG Base Excess VBG Potassium Hgb O2 Saturation Sodium 140.0 Chloride 114.0 H Glucose 418 H* D Lactate 1.5 Mechanical Rate 30 FiO2 100.0 Tidal Volume 420 PEEP Potassium Carbon Dioxide Anion Gap BUN Creatinine Est GFR ( Amer) Est GFR (Non-Af Amer) POC Glucose (mg/dL) 241 H Random Glucose Serum Osmolality 330 H Calcium Phosphorus Magnesium Total Bilirubin AST ALT Alkaline Phosphatase NT-Pro-B Natriuret Pep Total Protein Albumin Globulin Albumin/Globulin Ratio Triglycerides Cholesterol LDL Cholesterol Direct HDL Cholesterol Amylase Lipase TSH 3rd Generation Arterial Blood Potassium 4.9 Venous Blood Potassium Urine Color Urine Appearance Urine pH Ur Specific [place] Urine Protein Urine Glucose (UA) Urine Ketones Urine Blood Urine Nitrate Urine Bilirubin Urine Urobilinogen Ur Leukocyte Esterase Urine RBC Urine WBC Ur Epithelial Cells 03/31/18 03/31/18 03/31/18 20:58 21:20 21:20 WBC RBC Hgb Hct MCV MCH MCHC RDW Plt Count MPV PT INR APTT pCO2 pO2 43 HCO3 ABG pH ABG Total CO2 ABG O2 Saturation ABG O2 Content ABG Base Excess ABG Hemoglobin ABG Carboxyhemoglobin POC ABG HHb (Measured) ABG Methemoglobin ABG O2 Capacity ABG Potassium VBG pH 7.03 L* VBG pCO2 52.0 VBG HCO3 13.7 L VBG Total CO2 15.3 L VBG O2 Sat (Calc) 87.7 H VBG Base Excess -17.1 L VBG Potassium 3.9 Hgb O2 Saturation Sodium 147 143.0 Chloride 111 H 110.0 H Glucose 590 H* D Lactate 1.5 Mechanical Rate FiO2 21.0 Tidal Volume PEEP Potassium 4.0 Carbon Dioxide 12 L Anion Gap 28 H BUN 9 Creatinine 0.7 L Est GFR ( Amer) > 60 Est GFR (Non-Af Amer) > 60 POC Glucose (mg/dL) 195 H Random Glucose 557 H* Serum Osmolality Calcium 6.4 L* Phosphorus Magnesium Total Bilirubin AST ALT Alkaline Phosphatase NT-Pro-B Natriuret Pep Total Protein Albumin Globulin Albumin/Globulin Ratio Triglycerides Cholesterol LDL Cholesterol Direct HDL Cholesterol Amylase Lipase TSH 3rd Generation Arterial Blood Potassium Venous Blood Potassium 3.9 Urine Color Urine Appearance Urine pH Ur Specific [place] Urine Protein Urine Glucose (UA) Urine Ketones Urine Blood Urine Nitrate Urine Bilirubin Urine Urobilinogen Ur Leukocyte Esterase Urine RBC Urine WBC Ur Epithelial Cells 03/31/18 03/31/18 03/31/18 21:20 21:26 21:41 WBC RBC Hgb Hct MCV MCH MCHC RDW Plt Count MPV PT 10.8 INR 0.95 APTT 21.0 L pCO2 17 L* pO2 574.0 H HCO3 5.0 L* ABG pH 7.08 L* ABG Total CO2 5.5 L ABG O2 Saturation 100.0 H ABG O2 Content 19.3 ABG Base Excess -23.1 L ABG Hemoglobin 12.9 ABG Carboxyhemoglobin 1.0 POC ABG HHb (Measured) 0 ABG Methemoglobin 1.2 ABG O2 Capacity 19.3 ABG Potassium VBG pH VBG pCO2 VBG HCO3 VBG Total CO2 VBG O2 Sat (Calc) VBG Base Excess VBG Potassium Hgb O2 Saturation 97.8 Sodium Chloride Glucose Lactate Mechanical Rate FiO2 100.0 Tidal Volume PEEP Potassium Carbon Dioxide Anion Gap BUN Creatinine Est GFR ( Amer) Est GFR (Non-Af Amer) POC Glucose (mg/dL) Random Glucose Serum Osmolality Calcium Phosphorus Magnesium Total Bilirubin AST ALT Alkaline Phosphatase NT-Pro-B Natriuret Pep Total Protein Albumin Globulin Albumin/Globulin Ratio Triglycerides Cholesterol LDL Cholesterol Direct HDL Cholesterol Amylase Lipase TSH 3rd Generation Arterial Blood Potassium Venous Blood Potassium Urine Color Yellow Urine Appearance Clear Urine pH 6.0 Ur Specific [place] >= 1.030 Urine Protein 30 H Urine Glucose (UA) 250 H Urine Ketones >=80 Urine Blood Moderate H Urine Nitrate Negative Urine Bilirubin Negative Urine Urobilinogen 0.2 Ur Leukocyte Esterase Negative Urine RBC 20 - 25 Urine WBC 2 - 5 Ur Epithelial Cells 6 - 8 03/31/18 03/31/18 04/01/18 21:55 23:07 00:34 WBC RBC Hgb Hct MCV MCH MCHC RDW Plt Count MPV PT INR APTT pCO2 pO2 HCO3 ABG pH ABG Total CO2 ABG O2 Saturation ABG O2 Content ABG Base Excess ABG Hemoglobin ABG Carboxyhemoglobin POC ABG HHb (Measured) ABG Methemoglobin ABG O2 Capacity ABG Potassium VBG pH VBG pCO2 VBG HCO3 VBG Total CO2 VBG O2 Sat (Calc) VBG Base Excess VBG Potassium Hgb O2 Saturation Sodium Chloride Glucose Lactate Mechanical Rate FiO2 Tidal Volume PEEP Potassium Carbon Dioxide Anion Gap BUN Creatinine Est GFR ( Amer) Est GFR (Non-Af Amer) POC Glucose (mg/dL) 182 H 256 H 149 H Random Glucose Serum Osmolality Calcium Phosphorus Magnesium Total Bilirubin AST ALT Alkaline Phosphatase NT-Pro-B Natriuret Pep Total Protein Albumin Globulin Albumin/Globulin Ratio Triglycerides Cholesterol LDL Cholesterol Direct HDL Cholesterol Amylase Lipase TSH 3rd Generation Arterial Blood Potassium Venous Blood Potassium Urine Color Urine Appearance Urine pH Ur Specific [place] Urine Protein Urine Glucose (UA) Urine Ketones Urine Blood Urine Nitrate Urine Bilirubin Urine Urobilinogen Ur Leukocyte Esterase Urine RBC Urine WBC Ur Epithelial Cells 04/01/18 04/01/18 04/01/18 00:55 01:03 01:36 WBC RBC Hgb Hct MCV MCH MCHC RDW Plt Count MPV PT INR APTT pCO2 23 L pO2 545.0 H HCO3 11.3 L ABG pH 7.30 L ABG Total CO2 12.0 L ABG O2 Saturation 99.8 H ABG O2 Content ABG Base Excess -13.1 L ABG Hemoglobin ABG Carboxyhemoglobin POC ABG HHb (Measured) ABG Methemoglobin ABG O2 Capacity ABG Potassium 3.1 L VBG pH VBG pCO2 VBG HCO3 VBG Total CO2 VBG O2 Sat (Calc) VBG Base Excess VBG Potassium Hgb O2 Saturation Sodium 146.0 Cancelled Chloride 125.0 H Cancelled Glucose 145 H Lactate 1.1 Mechanical Rate 40 FiO2 100.0 Tidal Volume PEEP 5 Potassium Cancelled Carbon Dioxide Cancelled Anion Gap Cancelled BUN Cancelled Creatinine Est GFR ( Amer) Cancelled Est GFR (Non-Af Amer) Cancelled POC Glucose (mg/dL) 138 H Random Glucose Cancelled Serum Osmolality Calcium Cancelled Phosphorus Magnesium Total Bilirubin AST ALT Alkaline Phosphatase NT-Pro-B Natriuret Pep 313 Total Protein Albumin Globulin Albumin/Globulin Ratio Triglycerides Cholesterol LDL Cholesterol Direct HDL Cholesterol Amylase Lipase TSH 3rd Generation Arterial Blood Potassium 3.1 L Venous Blood Potassium Urine Color Urine Appearance Urine pH Ur Specific [place] Urine Protein Urine Glucose (UA) Urine Ketones Urine Blood Urine Nitrate Urine Bilirubin Urine Urobilinogen Ur Leukocyte Esterase Urine RBC Urine WBC Ur Epithelial Cells 04/01/18 04/01/18 04/01/18 02:15 02:24 03:03 WBC RBC Hgb Hct MCV MCH MCHC RDW Plt Count MPV PT INR APTT pCO2 pO2 HCO3 ABG pH ABG Total CO2 ABG O2 Saturation ABG O2 Content ABG Base Excess ABG Hemoglobin ABG Carboxyhemoglobin POC ABG HHb (Measured) ABG Methemoglobin ABG O2 Capacity ABG Potassium VBG pH VBG pCO2 VBG HCO3 VBG Total CO2 VBG O2 Sat (Calc) VBG Base Excess VBG Potassium Hgb O2 Saturation Sodium 149 H Chloride 121 H Glucose Lactate Mechanical Rate FiO2 Tidal Volume PEEP Potassium 3.6 Carbon Dioxide 13 L Anion Gap 19 BUN 8 Creatinine 0.7 L Est GFR ( Amer) > 60 Est GFR (Non-Af Amer) > 60 POC Glucose (mg/dL) 117 H 111 H Random Glucose 131 H Serum Osmolality Calcium 7.6 L Phosphorus 0.9 L* Magnesium 1.9 Total Bilirubin 0.5 AST 20 ALT 24 Alkaline Phosphatase 92 NT-Pro-B Natriuret Pep Total Protein 5.5 L Albumin 3.1 Globulin 2.4 Albumin/Globulin Ratio 1.3 Triglycerides Cholesterol LDL Cholesterol Direct HDL Cholesterol Amylase Lipase TSH 3rd Generation Arterial Blood Potassium Venous Blood Potassium Urine Color Urine Appearance Urine pH Ur Specific [place] Urine Protein Urine Glucose (UA) Urine Ketones Urine Blood Urine Nitrate Urine Bilirubin Urine Urobilinogen Ur Leukocyte Esterase Urine RBC Urine WBC Ur Epithelial Cells 04/01/18 04/01/18 04/01/18 05:05 05:05 05:05 WBC 13.3 H D RBC 4.27 Hgb 12.2 L D Hct 35.6 L MCV 83.4 D MCH 28.6 MCHC 34.3 RDW 13.6 Plt Count 288 MPV 8.4 PT INR APTT pCO2 pO2 HCO3 ABG pH ABG Total CO2 ABG O2 Saturation ABG O2 Content ABG Base Excess ABG Hemoglobin ABG Carboxyhemoglobin POC ABG HHb (Measured) ABG Methemoglobin ABG O2 Capacity ABG Potassium VBG pH VBG pCO2 VBG HCO3 VBG Total CO2 VBG O2 Sat (Calc) VBG Base Excess VBG Potassium Hgb O2 Saturation Sodium 149 H Chloride 122 H Glucose Lactate Mechanical Rate FiO2 Tidal Volume PEEP Potassium 3.9 Carbon Dioxide 11 L Anion Gap 20 BUN 7 Creatinine 0.6 L Est GFR ( Amer) > 60 Est GFR (Non-Af Amer) > 60 POC Glucose (mg/dL) Random Glucose 183 H Serum Osmolality Calcium 7.8 L Phosphorus 1.7 L Magnesium 1.8 Total Bilirubin 0.5 AST 20 ALT 32 Alkaline Phosphatase 99 NT-Pro-B Natriuret Pep Total Protein 5.6 L Albumin 3.1 Globulin 2.4 Albumin/Globulin Ratio 1.3 Triglycerides 134 Cholesterol 141 LDL Cholesterol Direct 73 HDL Cholesterol 52 Amylase 274 H Lipase 634 H TSH 3rd Generation 0.79 Arterial Blood Potassium Venous Blood Potassium Urine Color Urine Appearance Urine pH Ur Specific [place] Urine Protein Urine Glucose (UA) Urine Ketones Urine Blood Urine Nitrate Urine Bilirubin Urine Urobilinogen Ur Leukocyte Esterase Urine RBC Urine WBC Ur Epithelial Cells 04/01/18 04/01/18 04/01/18 05:20 06:10 06:42 WBC RBC Hgb Hct MCV MCH MCHC RDW Plt Count MPV PT 10.9 INR 0.95 APTT 24.1 L pCO2 17 L* pO2 257.0 H HCO3 7.1 L* ABG pH 7.23 L ABG Total CO2 7.6 L ABG O2 Saturation 100.0 H ABG O2 Content 13.7 L ABG Base Excess -18.5 L ABG Hemoglobin 9.5 L ABG Carboxyhemoglobin 1.3 POC ABG HHb (Measured) 0 ABG Methemoglobin 0.9 ABG O2 Capacity 13.7 L ABG Potassium VBG pH VBG pCO2 VBG HCO3 VBG Total CO2 VBG O2 Sat (Calc) VBG Base Excess VBG Potassium Hgb O2 Saturation 97.8 Sodium Chloride Glucose Lactate Mechanical Rate FiO2 100.0 Tidal Volume PEEP Potassium Carbon Dioxide Anion Gap BUN Creatinine Est GFR ( Amer) Est GFR (Non-Af Amer) POC Glucose (mg/dL) 217 H Random Glucose Serum Osmolality Calcium Phosphorus Magnesium Total Bilirubin AST ALT Alkaline Phosphatase NT-Pro-B Natriuret Pep Total Protein Albumin Globulin Albumin/Globulin Ratio Triglycerides Cholesterol LDL Cholesterol Direct HDL Cholesterol Amylase Lipase TSH 3rd Generation Arterial Blood Potassium Venous Blood Potassium Urine Color Urine Appearance Urine pH Ur Specific [place] Urine Protein Urine Glucose (UA) Urine Ketones Urine Blood Urine Nitrate Urine Bilirubin Urine Urobilinogen Ur Leukocyte Esterase Urine RBC Urine WBC Ur Epithelial Cells 04/01/18 04/01/18 04/01/18 07:21 08:09 08:55 WBC RBC Hgb Hct MCV MCH MCHC RDW Plt Count MPV PT INR APTT pCO2 pO2 HCO3 ABG pH ABG Total CO2 ABG O2 Saturation ABG O2 Content ABG Base Excess ABG Hemoglobin ABG Carboxyhemoglobin POC ABG HHb (Measured) ABG Methemoglobin ABG O2 Capacity ABG Potassium VBG pH VBG pCO2 VBG HCO3 VBG Total CO2 VBG O2 Sat (Calc) VBG Base Excess VBG Potassium Hgb O2 Saturation Sodium Chloride Glucose Lactate Mechanical Rate FiO2 Tidal Volume PEEP Potassium Carbon Dioxide Anion Gap BUN Creatinine Est GFR ( Amer) Est GFR (Non-Af Amer) POC Glucose (mg/dL) 198 H 201 H 194 H Random Glucose Serum Osmolality Calcium Phosphorus Magnesium Total Bilirubin AST ALT Alkaline Phosphatase NT-Pro-B Natriuret Pep Total Protein Albumin Globulin Albumin/Globulin Ratio Triglycerides Cholesterol LDL Cholesterol Direct HDL Cholesterol Amylase Lipase TSH 3rd Generation Arterial Blood Potassium Venous Blood Potassium Urine Color Urine Appearance Urine pH Ur Specific [place] Urine Protein Urine Glucose (UA) Urine Ketones Urine Blood Urine Nitrate Urine Bilirubin Urine Urobilinogen Ur Leukocyte Esterase Urine RBC Urine WBC Ur Epithelial Cells Assessment & Plan - Assessment and Plan (Free Text) Assessment: 27 year old male with past medical history of DM type 1, medical non-compliance , and recent AMA from hospital admission for DKA. Patient evaluated in ED and found to have elevated lactate, leukocytosis for which Code spesis was called. Patient also noted to have elevated anion gap of 35, kussmal breathing, bg of 551. Pt intubated and sedated and placed on insulin drip and transferred to ICU. Plan: Diabetic Ketoacidosis in setting of DM1 - Etiology: Infectious vs. Dehydration vs. Medical noncompliance vs. Substance abuse - Leukocytosis of 26.8, Lactate of 2.4, Code sepsis initiated - VBG showing initial pH of 6.8, AG of 35, K 6.1, Kussmal breathing now intubated and sedated, Ketones on UA - UA negative nitrate and leuk est, CXR unimpressive - Blood and Urine culture, HIV - BMP Q4H, FAccuchecks, Q1H, Procal, repeat ABG for monitoring of pH level and titrate ventilator and NaHCO3 appropriately, CBC - Monitor and replace electrolytes as needed - Insulin drip 4 units/hr initial, titrate according to AG - IVF - 3 Liters with 150mEq NaHCO3 in ED - 3 more liters of NS to follow - Continue to monitor as AG closes and with monitoring of blood glucose - Endocrinology consultation - Broad Spectrum antibiotics with meropenem and vancomycin, ID consult f/u recs Code Sepsis with 2/4 SIRS criteria - In setting of DKA with elevated WBC of 26.8, initial lactate of 2.4 - Blood, urine culture, procalcitonin ordered - Patient given IVF, 3 Liters in ED and started on Meropenem and Vancomycin - Paitent BP stable, tachycardic, and afebrile - Repeat Lactate Leukocytosis - 26.8 on admission with DKA - Blood, urine culture, procal - CBC GI/DVT ppx - Protonix, NPO - Heparin 5000 U SQ Case and plan discussed with attending - Date & Time Date: 03/31/18 Time: 18:05
[2018-04-01 10:44] LABS: BLOOD UREA NITROGEN 5 mg/dL (7-21); CALCIUM 8.1 mg/dL (8.4-10.5); GFR AFRICAN-AMERICAN > 60; GFR NON-AFRICAN AMERICAN > 60
[2018-04-01] MEDS: Dexmedetomidine 400mcg/100mL 400 MCG/100 ML BOTTLE IV PRN ×2 (10:47→20:35)
--- NOTE | 2018-04-01 11:36 | RAD ---
HISTORY: Post intubation COMPARISON: March 31, 2018. FINDINGS: LUNGS: No active pulmonary disease. PLEURA: No significant pleural effusion identified, no pneumothorax apparent. CARDIOVASCULAR: No radiographic findings to suggest acute or significant cardiovascular disease. OSSEOUS STRUCTURES: No significant abnormalities. VISUALIZED UPPER ABDOMEN: Normal. OTHER FINDINGS: Recently placed endotracheal tube and nasogastric tube in satisfactory position. IMPRESSION: Satisfactory position of recently placed support apparatus. Otherwise no interval change.
--- NOTE | 2018-04-01 11:36 | CP.CCUPN ---
<Duglas Gifford - Last Filed: 04/01/18 13:08> CCU Subjective - Physician Review Subjective (Free Text): Duglas Gifford PGY2 ICU Progress Note for Dr. Morley Patient was seen and examined at bedside in ICU. Continues to require sedation , but was switched from propofol to Precedex. Patient was agitated overnight. Anion gap is open, and patient remains on insulin drip. ROS was limited due to intubation. Pressure support was tried for patient in shallow breathing index is in 30s, however, he is agitated and requires continued sedation. CCU Objective - Vital Signs / Intake & Output Intake and Output (Last 8hrs): Intake & Output 03/31/18 04/01/18 04/01/18 22:59 06:59 14:59 Intake Total 3 196 300 Balance 3 196 300 Weight 148 lb 3.2 oz Intake: IV 3 196 300 Other: Voiding Method Indwelling Catheter - Physical Exam Physical Exam Limitations: Positive for: Other (sedated) Head: Positive for: Atraumatic, Normocephalic Pupils: Positive for: PERRL Mouth: Positive for: Moist Mucous Membranes Respiratory/Chest: Positive for: Clear to Auscultation, Other (on vent). Negative for: Wheezes, Rhonchi Cardiovascular: Positive for: Normal S1, S2, Tachycardic Abdomen: Positive for: Normal Bowel Sounds. Negative for: Tenderness, Distention, Peritoneal Signs Upper Extremity: Positive for: Normal Inspection, Other (2 point restraints on wrists ) Lower Extremity: Positive for: Normal Inspection. Negative for: Edema Neurological: Positive for: Other (sedated ) Skin: Positive for: Warm Psychiatric: Positive for: Other (unable to access ) - Medications Active Medications: Active Medications Generic Name Dose Route Start Last Admin Trade Name Freq PRN Reason Stop Dose Admin Heparin Sodium (Porcine) 5,000 units 03/31/18 22:00 04/01/18 00:00 Heparin SC 5,000 units Q12 WILIAN Administration Protocol Insulin Human Regular 100 100 mls @ 3 mls/hr 03/31/18 17:21 04/01/18 10:00 units/ Sodium Chloride IV Infused .Q24H PRN Titration TITRATE PER MD ORDER Protocol 3 UNITS/HR Midazolam 100 mg/100ml in NS 100 mg in 100 mls @ 1 mls/hr 03/31/18 18:36 01/14 05:26 Midazolam 100 Mg/100ml In Ns IV 8 mg/hr .Q24H PRN 8 mls/hr Sedation Titration Protocol 1 MG/HR Meropenem 50 mls @ 100 mls/hr 04/01/18 06:00 04/01/18 06:01 Merrem Iv 1 Gm Premix IVPB 04/10/18 06:01 100 mls/hr Q8 WILIAN Administration Protocol Vancomycin HCl 1 gm in 250 mls @ 167 mls/hr 04/01/18 10:00 04/01/18 09:14 Vancomycin 1gm IVPB 167 mls/hr Q12 WILIAN Administration Protocol Propofol 1,000 mg in 100 mls @ 2.245 mls/hr 03/31/18 22:18 04/01/18 09:23 Diprivan IV 50 mcg/kg/min .Q24H PRN 22.453 mls/hr TITRATE PER MD ORDER Administration Protocol 5 MCG/KG/MIN Acetaminophen 1,000 mg in 100 mls @ 400 mls/hr 04/01/18 01:30 04/01/18 02:06 Ofirmev IVPB 04/03/18 01:31 400 mls/hr Q6H PRN Administration Temperature Sodium Bicarbonate 150 meq/ 1,150 mls @ 150 mls/hr 04/01/18 08:45 04/01/18 09 :27 Dextrose IV 150 mls/hr .Q7H40M WILIAN Administration Dexmedetomidine HCl 400 mcg in 100 mls @ 3.361 mls/hr 04/01/18 09:53 10:47 Precedex 400mcg/100ml IV 0.2 mcg/kg/hr .Q24H PRN 3.361 mls/hr Agitation Administration Protocol 0.2 MCG/KG/HR Pantoprazole Sodium 40 mg 04/01/18 10:00 04/01/18 09:06 Protonix Inj IVP 40 mg DAILY WILIAN Administration - Patient Studies Lab Studies: Lab Studies 04/01/18 04/01/18 04/01/18 Range/Units 11:09 10:20 10:20 WBC (4.5-11.0) 10^3/ul RBC (3.5-6.1) 10^6/uL Hgb (14.0-18.0) g/dL Hct (42.0-52.0) % MCV (80.0-105.0) fl MCH (25.0-35.0) pg MCHC (31.0-37.0) g/dl RDW (11.5-14.5) % Plt Count (120.0-450.0) 10^3/uL MPV (7.0-11.0) fl PT (9.4-12.5) SECONDS INR (0.93-1.08) APTT (25.1-36.5) Seconds pCO2 (35-45) mm/Hg pO2 (80-100) mm/Hg HCO3 ABG pH (7.35-7.45) ABG Total CO2 ABG O2 Saturation (95-98) % ABG O2 Content (15-23) ML/dl ABG Base Excess ABG Hemoglobin (11.7-17.4) g/dL ABG Carboxyhemoglobin (0.5-1.5) % POC ABG HHb (Measured) (0-5) % ABG Methemoglobin (0.0-3.0) % ABG O2 Capacity (16-24) mL/dl ABG Potassium (3.6-5.2) mmol/L VBG pH (7.32-7.43) VBG pCO2 (40-60) VBG HCO3 (21-28) mmol/l VBG Total CO2 (22-28) mmol.L VBG O2 Sat (Calc) (40-65) % VBG Base Excess (0.0-2.0) mmol/L VBG Potassium (3.6-5.2) mmol/L Hgb O2 Saturation (95.0-98.0) % Sodium 150 H (132-148) mmol/L Chloride 120 H (98-107) mmol/L Glucose (75-110) mg/dl Lactate (0.7-2.1) mmol/L Mechanical Rate FiO2 % Tidal Volume PEEP Potassium 4.2 (3.6-5.0) mmol/L Carbon Dioxide 14 L (21-33) mmol/L Anion Gap 19 (10-20) BUN 5 L (7-21) mg/dL Creatinine 0.5 L (0.8-1.5) mg/dl Est GFR ( Amer) > 60 Est GFR (Non-Af Amer) > 60 POC Glucose (mg/dL) 154 H (65-110) mg/dL Random Glucose 162 H (70-110) mg/dL Serum Osmolality (272-300) mosm/kg Calcium 8.1 L (8.4-10.5) mg/dL Phosphorus (2.5-4.5) mg/dL Magnesium (1.7-2.2) mg/dL Total Bilirubin (0.2-1.3) mg/dL AST (17-59) U/L ALT (7-56) U/L Alkaline Phosphatase (38-126) U/L NT-Pro-B Natriuret Pep (0-450) pg/mL Total Protein (5.8-8.3) g/dL Albumin (3.0-4.8) g/dL Globulin gm/dL Albumin/Globulin Ratio (1.1-1.8) Triglycerides (35-160) mg/dL Cholesterol (130-200) mg/dL LDL Cholesterol Direct (0-129) mg/dL HDL Cholesterol (29-60) mg/dL Amylase (35-125) U/L Lipase 273 (23-300) U/L TSH 3rd Generation (0.46-4.68) mIU/mL Arterial Blood Potassium (3.6-5.2) mmol/L Venous Blood Potassium (3.6-5.2) mmol/L Urine Color (YELLOW) Urine Appearance (CLEAR) Urine pH (4.7-8.0) Ur Specific [place] (1.005-1.035) Urine Protein (<30 mg/dL) mg/dL Urine Glucose (UA) (NEGATIVE) mg/dL Urine Ketones (NEGATIVE) mg/dL Urine Blood (NEGATIVE) Urine Nitrate (NEGATIVE) Urine Bilirubin (NEGATIVE) Urine Urobilinogen (<1 E.U./dL) E.U./dL Ur Leukocyte Esterase (NEGATIVE) Fatimah/uL Urine RBC (0-2) /hpf Urine WBC (0-6) /hpf Ur Epithelial Cells (0-5) /hpf 04/01/18 04/01/18 04/01/18 Range/Units 09:58 08:55 08:09 WBC (4.5-11.0) 10^3/ul RBC (3.5-6.1) 10^6/uL Hgb (14.0-18.0) g/dL Hct (42.0-52.0) % MCV (80.0-105.0) fl MCH (25.0-35.0) pg MCHC (31.0-37.0) g/dl RDW (11.5-14.5) % Plt Count (120.0-450.0) 10^3/uL MPV (7.0-11.0) fl PT (9.4-12.5) SECONDS INR (0.93-1.08) APTT (25.1-36.5) Seconds pCO2 (35-45) mm/Hg pO2 (80-100) mm/Hg HCO3 ABG pH (7.35-7.45) ABG Total CO2 ABG O2 Saturation (95-98) % ABG O2 Content (15-23) ML/dl ABG Base Excess ABG Hemoglobin (11.7-17.4) g/dL ABG Carboxyhemoglobin (0.5-1.5) % POC ABG HHb (Measured) (0-5) % ABG Methemoglobin (0.0-3.0) % ABG O2 Capacity (16-24) mL/dl ABG Potassium (3.6-5.2) mmol/L VBG pH (7.32-7.43) VBG pCO2 (40-60) VBG HCO3 (21-28) mmol/l VBG Total CO2 (22-28) mmol.L VBG O2 Sat (Calc) (40-65) % VBG Base Excess (0.0-2.0) mmol/L VBG Potassium (3.6-5.2) mmol/L Hgb O2 Saturation (95.0-98.0) % Sodium (132-148) mmol/L Chloride (98-107) mmol/L Glucose (75-110) mg/dl Lactate (0.7-2.1) mmol/L Mechanical Rate FiO2 % Tidal Volume PEEP Potassium (3.6-5.0) mmol/L Carbon Dioxide (21-33) mmol/L Anion Gap (10-20) BUN (7-21) mg/dL Creatinine (0.8-1.5) mg/dl Est GFR ( Amer) Est GFR (Non-Af Amer) POC Glucose (mg/dL) 159 H 194 H 201 H (65-110) mg/dL Random Glucose (70-110) mg/dL Serum Osmolality (272-300) mosm/kg Calcium (8.4-10.5) mg/dL Phosphorus (2.5-4.5) mg/dL Magnesium (1.7-2.2) mg/dL Total Bilirubin (0.2-1.3) mg/dL AST (17-59) U/L ALT (7-56) U/L Alkaline Phosphatase (38-126) U/L NT-Pro-B Natriuret Pep (0-450) pg/mL Total Protein (5.8-8.3) g/dL Albumin (3.0-4.8) g/dL Globulin gm/dL Albumin/Globulin Ratio (1.1-1.8) Triglycerides (35-160) mg/dL Cholesterol (130-200) mg/dL LDL Cholesterol Direct (0-129) mg/dL HDL Cholesterol (29-60) mg/dL Amylase (35-125) U/L Lipase (23-300) U/L TSH 3rd Generation (0.46-4.68) mIU/mL Arterial Blood Potassium (3.6-5.2) mmol/L Venous Blood Potassium (3.6-5.2) mmol/L Urine Color (YELLOW) Urine Appearance (CLEAR) Urine pH (4.7-8.0) Ur Specific [place] (1.005-1.035) Urine Protein (<30 mg/dL) mg/dL Urine Glucose (UA) (NEGATIVE) mg/dL Urine Ketones (NEGATIVE) mg/dL Urine Blood (NEGATIVE) Urine Nitrate (NEGATIVE) Urine Bilirubin (NEGATIVE) Urine Urobilinogen (<1 E.U./dL) E.U./dL Ur Leukocyte Esterase (NEGATIVE) Fatimah/uL Urine RBC (0-2) /hpf Urine WBC (0-6) /hpf Ur Epithelial Cells (0-5) /hpf 04/01/18 04/01/18 04/01/18 Range/Units 07:21 06:42 06:10 WBC (4.5-11.0) 10^3/ul RBC (3.5-6.1) 10^6/uL Hgb (14.0-18.0) g/dL Hct (42.0-52.0) % MCV (80.0-105.0) fl MCH (25.0-35.0) pg MCHC (31.0-37.0) g/dl RDW (11.5-14.5) % Plt Count (120.0-450.0) 10^3/uL MPV (7.0-11.0) fl PT (9.4-12.5) SECONDS INR (0.93-1.08) APTT (25.1-36.5) Seconds pCO2 17 L* (35-45) mm/Hg pO2 257.0 H (80-100) mm/Hg HCO3 7.1 L* ABG pH 7.23 L (7.35-7.45) ABG Total CO2 7.6 L ABG O2 Saturation 100.0 H (95-98) % ABG O2 Content 13.7 L (15-23) ML/dl ABG Base Excess -18.5 L ABG Hemoglobin 9.5 L (11.7-17.4) g/dL ABG Carboxyhemoglobin 1.3 (0.5-1.5) % POC ABG HHb (Measured) 0 (0-5) % ABG Methemoglobin 0.9 (0.0-3.0) % ABG O2 Capacity 13.7 L (16-24) mL/dl ABG Potassium (3.6-5.2) mmol/L VBG pH (7.32-7.43) VBG pCO2 (40-60) VBG HCO3 (21-28) mmol/l VBG Total CO2 (22-28) mmol.L VBG O2 Sat (Calc) (40-65) % VBG Base Excess (0.0-2.0) mmol/L VBG Potassium (3.6-5.2) mmol/L Hgb O2 Saturation 97.8 (95.0-98.0) % Sodium (132-148) mmol/L Chloride (98-107) mmol/L Glucose (75-110) mg/dl Lactate (0.7-2.1) mmol/L Mechanical Rate FiO2 100.0 % Tidal Volume PEEP Potassium (3.6-5.0) mmol/L Carbon Dioxide (21-33) mmol/L Anion Gap (10-20) BUN (7-21) mg/dL Creatinine (0.8-1.5) mg/dl Est GFR ( Amer) Est GFR (Non-Af Amer) POC Glucose (mg/dL) 198 H 217 H (65-110) mg/dL Random Glucose (70-110) mg/dL Serum Osmolality (272-300) mosm/kg Calcium (8.4-10.5) mg/dL Phosphorus (2.5-4.5) mg/dL Magnesium (1.7-2.2) mg/dL Total Bilirubin (0.2-1.3) mg/dL AST (17-59) U/L ALT (7-56) U/L Alkaline Phosphatase (38-126) U/L NT-Pro-B Natriuret Pep (0-450) pg/mL Total Protein (5.8-8.3) g/dL Albumin (3.0-4.8) g/dL Globulin gm/dL Albumin/Globulin Ratio (1.1-1.8) Triglycerides (35-160) mg/dL Cholesterol (130-200) mg/dL LDL Cholesterol Direct (0-129) mg/dL HDL Cholesterol (29-60) mg/dL Amylase (35-125) U/L Lipase (23-300) U/L TSH 3rd Generation (0.46-4.68) mIU/mL Arterial Blood Potassium (3.6-5.2) mmol/L Venous Blood Potassium (3.6-5.2) mmol/L Urine Color (YELLOW) Urine Appearance (CLEAR) Urine pH (4.7-8.0) Ur Specific [place] (1.005-1.035) Urine Protein (<30 mg/dL) mg/dL Urine Glucose (UA) (NEGATIVE) mg/dL Urine Ketones (NEGATIVE) mg/dL Urine Blood (NEGATIVE) Urine Nitrate (NEGATIVE) Urine Bilirubin (NEGATIVE) Urine Urobilinogen (<1 E.U./dL) E.U./dL Ur Leukocyte Esterase (NEGATIVE) Fatimah/uL Urine RBC (0-2) /hpf Urine WBC (0-6) /hpf Ur Epithelial Cells (0-5) /hpf 04/01/18 04/01/18 04/01/18 Range/Units 05:20 05:05 05:05 WBC (4.5-11.0) 10^3/ul RBC (3.5-6.1) 10^6/uL Hgb (14.0-18.0) g/dL Hct (42.0-52.0) % MCV (80.0-105.0) fl MCH (25.0-35.0) pg MCHC (31.0-37.0) g/dl RDW (11.5-14.5) % Plt Count (120.0-450.0) 10^3/uL MPV (7.0-11.0) fl PT 10.9 (9.4-12.5) SECONDS INR 0.95 (0.93-1.08) APTT 24.1 L (25.1-36.5) Seconds pCO2 (35-45) mm/Hg pO2 (80-100) mm/Hg HCO3 ABG pH (7.35-7.45) ABG Total CO2 ABG O2 Saturation (95-98) % ABG O2 Content (15-23) ML/dl ABG Base Excess ABG Hemoglobin (11.7-17.4) g/dL ABG Carboxyhemoglobin (0.5-1.5) % POC ABG HHb (Measured) (0-5) % ABG Methemoglobin (0.0-3.0) % ABG O2 Capacity (16-24) mL/dl ABG Potassium (3.6-5.2) mmol/L VBG pH (7.32-7.43) VBG pCO2 (40-60) VBG HCO3 (21-28) mmol/l VBG Total CO2 (22-28) mmol.L VBG O2 Sat (Calc) (40-65) % VBG Base Excess (0.0-2.0) mmol/L VBG Potassium (3.6-5.2) mmol/L Hgb O2 Saturation (95.0-98.0) % Sodium 149 H (132-148) mmol/L Chloride 122 H (98-107) mmol/L Glucose (75-110) mg/dl Lactate (0.7-2.1) mmol/L Mechanical Rate FiO2 % Tidal Volume PEEP Potassium 3.9 (3.6-5.0) mmol/L Carbon Dioxide 11 L (21-33) mmol/L Anion Gap 20 (10-20) BUN 7 (7-21) mg/dL Creatinine 0.6 L (0.8-1.5) mg/dl Est GFR ( Amer) > 60 Est GFR (Non-Af Amer) > 60 POC Glucose (mg/dL) (65-110) mg/dL Random Glucose 183 H (70-110) mg/dL Serum Osmolality (272-300) mosm/kg Calcium 7.8 L (8.4-10.5) mg/dL Phosphorus 1.7 L (2.5-4.5) mg/dL Magnesium 1.8 (1.7-2.2) mg/dL Total Bilirubin 0.5 (0.2-1.3) mg/dL AST 20 (17-59) U/L ALT 32 (7-56) U/L Alkaline Phosphatase 99 (38-126) U/L NT-Pro-B Natriuret Pep (0-450) pg/mL Total Protein 5.6 L (5.8-8.3) g/dL Albumin 3.1 (3.0-4.8) g/dL Globulin 2.4 gm/dL Albumin/Globulin Ratio 1.3 (1.1-1.8) Triglycerides 134 (35-160) mg/dL Cholesterol 141 (130-200) mg/dL LDL Cholesterol Direct 73 (0-129) mg/dL HDL Cholesterol 52 (29-60) mg/dL Amylase 274 H (35-125) U/L Lipase 634 H (23-300) U/L TSH 3rd Generation 0.79 (0.46-4.68) mIU/mL Arterial Blood Potassium (3.6-5.2) mmol/L Venous Blood Potassium (3.6-5.2) mmol/L Urine Color (YELLOW) Urine Appearance (CLEAR) Urine pH (4.7-8.0) Ur Specific [place] (1.005-1.035) Urine Protein (<30 mg/dL) mg/dL Urine Glucose (UA) (NEGATIVE) mg/dL Urine Ketones (NEGATIVE) mg/dL Urine Blood (NEGATIVE) Urine Nitrate (NEGATIVE) Urine Bilirubin (NEGATIVE) Urine Urobilinogen (<1 E.U./dL) E.U./dL Ur Leukocyte Esterase (NEGATIVE) Fatimah/uL Urine RBC (0-2) /hpf Urine WBC (0-6) /hpf Ur Epithelial Cells (0-5) /hpf 04/01/18 04/01/18 04/01/18 Range/Units 05:05 03:03 02:24 WBC 13.3 H D (4.5-11.0) 10^3/ul RBC 4.27 (3.5-6.1) 10^6/uL Hgb 12.2 L D (14.0-18.0) g/dL Hct 35.6 L (42.0-52.0) % MCV 83.4 D (80.0-105.0) fl MCH 28.6 (25.0-35.0) pg MCHC 34.3 (31.0-37.0) g/dl RDW 13.6 (11.5-14.5) % Plt Count 288 (120.0-450.0) 10^3/uL MPV 8.4 (7.0-11.0) fl PT (9.4-12.5) SECONDS INR (0.93-1.08) APTT (25.1-36.5) Seconds pCO2 (35-45) mm/Hg pO2 (80-100) mm/Hg HCO3 ABG pH (7.35-7.45) ABG Total CO2 ABG O2 Saturation (95-98) % ABG O2 Content (15-23) ML/dl ABG Base Excess ABG Hemoglobin (11.7-17.4) g/dL ABG Carboxyhemoglobin (0.5-1.5) % POC ABG HHb (Measured) (0-5) % ABG Methemoglobin (0.0-3.0) % ABG O2 Capacity (16-24) mL/dl ABG Potassium (3.6-5.2) mmol/L VBG pH (7.32-7.43) VBG pCO2 (40-60) VBG HCO3 (21-28) mmol/l VBG Total CO2 (22-28) mmol.L VBG O2 Sat (Calc) (40-65) % VBG Base Excess (0.0-2.0) mmol/L VBG Potassium (3.6-5.2) mmol/L Hgb O2 Saturation (95.0-98.0) % Sodium (132-148) mmol/L Chloride (98-107) mmol/L Glucose (75-110) mg/dl Lactate (0.7-2.1) mmol/L Mechanical Rate FiO2 % Tidal Volume PEEP Potassium (3.6-5.0) mmol/L Carbon Dioxide (21-33) mmol/L Anion Gap (10-20) BUN (7-21) mg/dL Creatinine (0.8-1.5) mg/dl Est GFR ( Amer) Est GFR (Non-Af Amer) POC Glucose (mg/dL) 111 H 117 H (65-110) mg/dL Random Glucose (70-110) mg/dL Serum Osmolality (272-300) mosm/kg Calcium (8.4-10.5) mg/dL Phosphorus (2.5-4.5) mg/dL Magnesium (1.7-2.2) mg/dL Total Bilirubin (0.2-1.3) mg/dL AST (17-59) U/L ALT (7-56) U/L Alkaline Phosphatase (38-126) U/L NT-Pro-B Natriuret Pep (0-450) pg/mL Total Protein (5.8-8.3) g/dL Albumin (3.0-4.8) g/dL Globulin gm/dL Albumin/Globulin Ratio (1.1-1.8) Triglycerides (35-160) mg/dL Cholesterol (130-200) mg/dL LDL Cholesterol Direct (0-129) mg/dL HDL Cholesterol (29-60) mg/dL Amylase (35-125) U/L Lipase (23-300) U/L TSH 3rd Generation (0.46-4.68) mIU/mL Arterial Blood Potassium (3.6-5.2) mmol/L Venous Blood Potassium (3.6-5.2) mmol/L Urine Color (YELLOW) Urine Appearance (CLEAR) Urine pH (4.7-8.0) Ur Specific [place] (1.005-1.035) Urine Protein (<30 mg/dL) mg/dL Urine Glucose (UA) (NEGATIVE) mg/dL Urine Ketones (NEGATIVE) mg/dL Urine Blood (NEGATIVE) Urine Nitrate (NEGATIVE) Urine Bilirubin (NEGATIVE) Urine Urobilinogen (<1 E.U./dL) E.U./dL Ur Leukocyte Esterase (NEGATIVE) Fatimah/uL Urine RBC (0-2) /hpf Urine WBC (0-6) /hpf Ur Epithelial Cells (0-5) /hpf 04/01/18 04/01/18 04/01/18 Range/Units 02:15 01:36 01:03 WBC (4.5-11.0) 10^3/ul RBC (3.5-6.1) 10^6/uL Hgb (14.0-18.0) g/dL Hct (42.0-52.0) % MCV (80.0-105.0) fl MCH (25.0-35.0) pg MCHC (31.0-37.0) g/dl RDW (11.5-14.5) % Plt Count (120.0-450.0) 10^3/uL MPV (7.0-11.0) fl PT (9.4-12.5) SECONDS INR (0.93-1.08) APTT (25.1-36.5) Seconds pCO2 (35-45) mm/Hg pO2 (80-100) mm/Hg HCO3 ABG pH (7.35-7.45) ABG Total CO2 ABG O2 Saturation (95-98) % ABG O2 Content (15-23) ML/dl ABG Base Excess ABG Hemoglobin (11.7-17.4) g/dL ABG Carboxyhemoglobin (0.5-1.5) % POC ABG HHb (Measured) (0-5) % ABG Methemoglobin (0.0-3.0) % ABG O2 Capacity (16-24) mL/dl ABG Potassium (3.6-5.2) mmol/L VBG pH (7.32-7.43) VBG pCO2 (40-60) VBG HCO3 (21-28) mmol/l VBG Total CO2 (22-28) mmol.L VBG O2 Sat (Calc) (40-65) % VBG Base Excess (0.0-2.0) mmol/L VBG Potassium (3.6-5.2) mmol/L Hgb O2 Saturation (95.0-98.0) % Sodium 149 H Cancelled (132-148) mmol/L Chloride 121 H Cancelled (98-107) mmol/L Glucose (75-110) mg/dl Lactate (0.7-2.1) mmol/L Mechanical Rate FiO2 % Tidal Volume PEEP Potassium 3.6 Cancelled (3.6-5.0) mmol/L Carbon Dioxide 13 L Cancelled (21-33) mmol/L Anion Gap 19 Cancelled (10-20) BUN 8 Cancelled (7-21) mg/dL Creatinine 0.7 L (0.8-1.5) mg/dl Est GFR ( Amer) > 60 Cancelled Est GFR (Non-Af Amer) > 60 Cancelled POC Glucose (mg/dL) 138 H (65-110) mg/dL Random Glucose 131 H Cancelled (70-110) mg/dL Serum Osmolality (272-300) mosm/kg Calcium 7.6 L Cancelled (8.4-10.5) mg/dL Phosphorus 0.9 L* (2.5-4.5) mg/dL Magnesium 1.9 (1.7-2.2) mg/dL Total Bilirubin 0.5 (0.2-1.3) mg/dL AST 20 (17-59) U/L ALT 24 (7-56) U/L Alkaline Phosphatase 92 (38-126) U/L NT-Pro-B Natriuret Pep 313 (0-450) pg/mL Total Protein 5.5 L (5.8-8.3) g/dL Albumin 3.1 (3.0-4.8) g/dL Globulin 2.4 gm/dL Albumin/Globulin Ratio 1.3 (1.1-1.8) Triglycerides (35-160) mg/dL Cholesterol (130-200) mg/dL LDL Cholesterol Direct (0-129) mg/dL HDL Cholesterol (29-60) mg/dL Amylase (35-125) U/L Lipase (23-300) U/L TSH 3rd Generation (0.46-4.68) mIU/mL Arterial Blood Potassium (3.6-5.2) mmol/L Venous Blood Potassium (3.6-5.2) mmol/L Urine Color (YELLOW) Urine Appearance (CLEAR) Urine pH (4.7-8.0) Ur Specific [place] (1.005-1.035) Urine Protein (<30 mg/dL) mg/dL Urine Glucose (UA) (NEGATIVE) mg/dL Urine Ketones (NEGATIVE) mg/dL Urine Blood (NEGATIVE) Urine Nitrate (NEGATIVE) Urine Bilirubin (NEGATIVE) Urine Urobilinogen (<1 E.U./dL) E.U./dL Ur Leukocyte Esterase (NEGATIVE) Fatimah/uL Urine RBC (0-2) /hpf Urine WBC (0-6) /hpf Ur Epithelial Cells (0-5) /hpf 04/01/18 04/01/18 03/31/18 Range/Units 00:55 00:34 23:07 WBC (4.5-11.0) 10^3/ul RBC (3.5-6.1) 10^6/uL Hgb (14.0-18.0) g/dL Hct (42.0-52.0) % MCV (80.0-105.0) fl MCH (25.0-35.0) pg MCHC (31.0-37.0) g/dl RDW (11.5-14.5) % Plt Count (120.0-450.0) 10^3/uL MPV (7.0-11.0) fl PT (9.4-12.5) SECONDS INR (0.93-1.08) APTT (25.1-36.5) Seconds pCO2 23 L (35-45) mm/Hg pO2 545.0 H (80-100) mm/Hg HCO3 11.3 L ABG pH 7.30 L (7.35-7.45) ABG Total CO2 12.0 L ABG O2 Saturation 99.8 H (95-98) % ABG O2 Content (15-23) ML/dl ABG Base Excess -13.1 L ABG Hemoglobin (11.7-17.4) g/dL ABG Carboxyhemoglobin (0.5-1.5) % POC ABG HHb (Measured) (0-5) % ABG Methemoglobin (0.0-3.0) % ABG O2 Capacity (16-24) mL/dl ABG Potassium 3.1 L (3.6-5.2) mmol/L VBG pH (7.32-7.43) VBG pCO2 (40-60) VBG HCO3 (21-28) mmol/l VBG Total CO2 (22-28) mmol.L VBG O2 Sat (Calc) (40-65) % VBG Base Excess (0.0-2.0) mmol/L VBG Potassium (3.6-5.2) mmol/L Hgb O2 Saturation (95.0-98.0) % Sodium 146.0 (132-148) mmol/L Chloride 125.0 H (98-107) mmol/L Glucose 145 H (75-110) mg/dl Lactate 1.1 (0.7-2.1) mmol/L Mechanical Rate 40 FiO2 100.0 % Tidal Volume PEEP 5 Potassium (3.6-5.0) mmol/L Carbon Dioxide (21-33) mmol/L Anion Gap (10-20) BUN (7-21) mg/dL Creatinine (0.8-1.5) mg/dl Est GFR ( Amer) Est GFR (Non-Af Amer) POC Glucose (mg/dL) 149 H 256 H (65-110) mg/dL Random Glucose (70-110) mg/dL Serum Osmolality (272-300) mosm/kg Calcium (8.4-10.5) mg/dL Phosphorus (2.5-4.5) mg/dL Magnesium (1.7-2.2) mg/dL Total Bilirubin (0.2-1.3) mg/dL AST (17-59) U/L ALT (7-56) U/L Alkaline Phosphatase (38-126) U/L NT-Pro-B Natriuret Pep (0-450) pg/mL Total Protein (5.8-8.3) g/dL Albumin (3.0-4.8) g/dL Globulin gm/dL Albumin/Globulin Ratio (1.1-1.8) Triglycerides (35-160) mg/dL Cholesterol (130-200) mg/dL LDL Cholesterol Direct (0-129) mg/dL HDL Cholesterol (29-60) mg/dL Amylase (35-125) U/L Lipase (23-300) U/L TSH 3rd Generation (0.46-4.68) mIU/mL Arterial Blood Potassium 3.1 L (3.6-5.2) mmol/L Venous Blood Potassium (3.6-5.2) mmol/L Urine Color (YELLOW) Urine Appearance (CLEAR) Urine pH (4.7-8.0) Ur Specific [place] (1.005-1.035) Urine Protein (<30 mg/dL) mg/dL Urine Glucose (UA) (NEGATIVE) mg/dL Urine Ketones (NEGATIVE) mg/dL Urine Blood (NEGATIVE) Urine Nitrate (NEGATIVE) Urine Bilirubin (NEGATIVE) Urine Urobilinogen (<1 E.U./dL) E.U./dL Ur Leukocyte Esterase (NEGATIVE) Fatimah/uL Urine RBC (0-2) /hpf Urine WBC (0-6) /hpf Ur Epithelial Cells (0-5) /hpf 03/31/18 03/31/18 03/31/18 Range/Units 21:55 21:41 21:26 WBC (4.5-11.0) 10^3/ul RBC (3.5-6.1) 10^6/uL Hgb (14.0-18.0) g/dL Hct (42.0-52.0) % MCV (80.0-105.0) fl MCH (25.0-35.0) pg MCHC (31.0-37.0) g/dl RDW (11.5-14.5) % Plt Count (120.0-450.0) 10^3/uL MPV (7.0-11.0) fl PT (9.4-12.5) SECONDS INR (0.93-1.08) APTT (25.1-36.5) Seconds pCO2 17 L* (35-45) mm/Hg pO2 574.0 H (80-100) mm/Hg HCO3 5.0 L* ABG pH 7.08 L* (7.35-7.45) ABG Total CO2 5.5 L ABG O2 Saturation 100.0 H (95-98) % ABG O2 Content 19.3 (15-23) ML/dl ABG Base Excess -23.1 L ABG Hemoglobin 12.9 (11.7-17.4) g/dL ABG Carboxyhemoglobin 1.0 (0.5-1.5) % POC ABG HHb (Measured) 0 (0-5) % ABG Methemoglobin 1.2 (0.0-3.0) % ABG O2 Capacity 19.3 (16-24) mL/dl ABG Potassium (3.6-5.2) mmol/L VBG pH (7.32-7.43) VBG pCO2 (40-60) VBG HCO3 (21-28) mmol/l VBG Total CO2 (22-28) mmol.L VBG O2 Sat (Calc) (40-65) % VBG Base Excess (0.0-2.0) mmol/L VBG Potassium (3.6-5.2) mmol/L Hgb O2 Saturation 97.8 (95.0-98.0) % Sodium (132-148) mmol/L Chloride (98-107) mmol/L Glucose (75-110) mg/dl Lactate (0.7-2.1) mmol/L Mechanical Rate FiO2 100.0 % Tidal Volume PEEP Potassium (3.6-5.0) mmol/L Carbon Dioxide (21-33) mmol/L Anion Gap (10-20) BUN (7-21) mg/dL Creatinine (0.8-1.5) mg/dl Est GFR ( Amer) Est GFR (Non-Af Amer) POC Glucose (mg/dL) 182 H (65-110) mg/dL Random Glucose (70-110) mg/dL Serum Osmolality (272-300) mosm/kg Calcium (8.4-10.5) mg/dL Phosphorus (2.5-4.5) mg/dL Magnesium (1.7-2.2) mg/dL Total Bilirubin (0.2-1.3) mg/dL AST (17-59) U/L ALT (7-56) U/L Alkaline Phosphatase (38-126) U/L NT-Pro-B Natriuret Pep (0-450) pg/mL Total Protein (5.8-8.3) g/dL Albumin (3.0-4.8) g/dL Globulin gm/dL Albumin/Globulin Ratio (1.1-1.8) Triglycerides (35-160) mg/dL Cholesterol (130-200) mg/dL LDL Cholesterol Direct (0-129) mg/dL HDL Cholesterol (29-60) mg/dL Amylase (35-125) U/L Lipase (23-300) U/L TSH 3rd Generation (0.46-4.68) mIU/mL Arterial Blood Potassium (3.6-5.2) mmol/L Venous Blood Potassium (3.6-5.2) mmol/L Urine Color Yellow (YELLOW) Urine Appearance Clear (CLEAR) Urine pH 6.0 (4.7-8.0) Ur Specific [place] >= 1.030 (1.005-1.035) Urine Protein 30 H (<30 mg/dL) mg/dL Urine Glucose (UA) 250 H (NEGATIVE) mg/dL Urine Ketones >=80 (NEGATIVE) mg/dL Urine Blood Moderate H (NEGATIVE) Urine Nitrate Negative (NEGATIVE) Urine Bilirubin Negative (NEGATIVE) Urine Urobilinogen 0.2 (<1 E.U./dL) E.U./dL Ur Leukocyte Esterase Negative (NEGATIVE) Fatimah/uL Urine RBC 20 - 25 (0-2) /hpf Urine WBC 2 - 5 (0-6) /hpf Ur Epithelial Cells 6 - 8 (0-5) /hpf 03/31/18 03/31/18 03/31/18 Range/Units 21:20 21:20 21:20 WBC (4.5-11.0) 10^3/ul RBC (3.5-6.1) 10^6/uL Hgb (14.0-18.0) g/dL Hct (42.0-52.0) % MCV (80.0-105.0) fl MCH (25.0-35.0) pg MCHC (31.0-37.0) g/dl RDW (11.5-14.5) % Plt Count (120.0-450.0) 10^3/uL MPV (7.0-11.0) fl PT 10.8 (9.4-12.5) SECONDS INR 0.95 (0.93-1.08) APTT 21.0 L (25.1-36.5) Seconds pCO2 (35-45) mm/Hg pO2 43 (80-100) mm/Hg HCO3 ABG pH (7.35-7.45) ABG Total CO2 ABG O2 Saturation (95-98) % ABG O2 Content (15-23) ML/dl ABG Base Excess ABG Hemoglobin (11.7-17.4) g/dL ABG Carboxyhemoglobin (0.5-1.5) % POC ABG HHb (Measured) (0-5) % ABG Methemoglobin (0.0-3.0) % ABG O2 Capacity (16-24) mL/dl ABG Potassium (3.6-5.2) mmol/L VBG pH 7.03 L* (7.32-7.43) VBG pCO2 52.0 (40-60) VBG HCO3 13.7 L (21-28) mmol/l VBG Total CO2 15.3 L (22-28) mmol.L VBG O2 Sat (Calc) 87.7 H (40-65) % VBG Base Excess -17.1 L (0.0-2.0) mmol/L VBG Potassium 3.9 (3.6-5.2) mmol/L Hgb O2 Saturation (95.0-98.0) % Sodium 143.0 147 (132-148) mmol/L Chloride 110.0 H 111 H (98-107) mmol/L Glucose 590 H* D (75-110) mg/dl Lactate 1.5 (0.7-2.1) mmol/L Mechanical Rate FiO2 21.0 % Tidal Volume PEEP Potassium 4.0 (3.6-5.0) mmol/L Carbon Dioxide 12 L (21-33) mmol/L Anion Gap 28 H (10-20) BUN 9 (7-21) mg/dL Creatinine 0.7 L (0.8-1.5) mg/dl Est GFR ( Amer) > 60 Est GFR (Non-Af Amer) > 60 POC Glucose (mg/dL) (65-110) mg/dL Random Glucose 557 H* (70-110) mg/dL Serum Osmolality (272-300) mosm/kg Calcium 6.4 L* (8.4-10.5) mg/dL Phosphorus (2.5-4.5) mg/dL Magnesium (1.7-2.2) mg/dL Total Bilirubin (0.2-1.3) mg/dL AST (17-59) U/L ALT (7-56) U/L Alkaline Phosphatase (38-126) U/L NT-Pro-B Natriuret Pep (0-450) pg/mL Total Protein (5.8-8.3) g/dL Albumin (3.0-4.8) g/dL Globulin gm/dL Albumin/Globulin Ratio (1.1-1.8) Triglycerides (35-160) mg/dL Cholesterol (130-200) mg/dL LDL Cholesterol Direct (0-129) mg/dL HDL Cholesterol (29-60) mg/dL Amylase (35-125) U/L Lipase (23-300) U/L TSH 3rd Generation (0.46-4.68) mIU/mL Arterial Blood Potassium (3.6-5.2) mmol/L Venous Blood Potassium 3.9 (3.6-5.2) mmol/L Urine Color (YELLOW) Urine Appearance (CLEAR) Urine pH (4.7-8.0) Ur Specific [place] (1.005-1.035) Urine Protein (<30 mg/dL) mg/dL Urine Glucose (UA) (NEGATIVE) mg/dL Urine Ketones (NEGATIVE) mg/dL Urine Blood (NEGATIVE) Urine Nitrate (NEGATIVE) Urine Bilirubin (NEGATIVE) Urine Urobilinogen (<1 E.U./dL) E.U./dL Ur Leukocyte Esterase (NEGATIVE) Fatimah/uL Urine RBC (0-2) /hpf Urine WBC (0-6) /hpf Ur Epithelial Cells (0-5) /hpf 03/31/18 03/31/18 03/31/18 Range/Units 20:58 20:15 20:06 WBC (4.5-11.0) 10^3/ul RBC (3.5-6.1) 10^6/uL Hgb (14.0-18.0) g/dL Hct (42.0-52.0) % MCV (80.0-105.0) fl MCH (25.0-35.0) pg MCHC (31.0-37.0) g/dl RDW (11.5-14.5) % Plt Count (120.0-450.0) 10^3/uL MPV (7.0-11.0) fl PT (9.4-12.5) SECONDS INR (0.93-1.08) APTT (25.1-36.5) Seconds pCO2 (35-45) mm/Hg pO2 (80-100) mm/Hg HCO3 ABG pH (7.35-7.45) ABG Total CO2 ABG O2 Saturation (95-98) % ABG O2 Content (15-23) ML/dl ABG Base Excess ABG Hemoglobin (11.7-17.4) g/dL ABG Carboxyhemoglobin (0.5-1.5) % POC ABG HHb (Measured) (0-5) % ABG Methemoglobin (0.0-3.0) % ABG O2 Capacity (16-24) mL/dl ABG Potassium (3.6-5.2) mmol/L VBG pH (7.32-7.43) VBG pCO2 (40-60) VBG HCO3 (21-28) mmol/l VBG Total CO2 (22-28) mmol.L VBG O2 Sat (Calc) (40-65) % VBG Base Excess (0.0-2.0) mmol/L VBG Potassium (3.6-5.2) mmol/L Hgb O2 Saturation (95.0-98.0) % Sodium (132-148) mmol/L Chloride (98-107) mmol/L Glucose (75-110) mg/dl Lactate (0.7-2.1) mmol/L Mechanical Rate FiO2 % Tidal Volume PEEP Potassium (3.6-5.0) mmol/L Carbon Dioxide (21-33) mmol/L Anion Gap (10-20) BUN (7-21) mg/dL Creatinine (0.8-1.5) mg/dl Est GFR ( Amer) Est GFR (Non-Af Amer) POC Glucose (mg/dL) 195 H 241 H (65-110) mg/dL Random Glucose (70-110) mg/dL Serum Osmolality 330 H (272-300) mosm/kg Calcium (8.4-10.5) mg/dL Phosphorus (2.5-4.5) mg/dL Magnesium (1.7-2.2) mg/dL Total Bilirubin (0.2-1.3) mg/dL AST (17-59) U/L ALT (7-56) U/L Alkaline Phosphatase (38-126) U/L NT-Pro-B Natriuret Pep (0-450) pg/mL Total Protein (5.8-8.3) g/dL Albumin (3.0-4.8) g/dL Globulin gm/dL Albumin/Globulin Ratio (1.1-1.8) Triglycerides (35-160) mg/dL Cholesterol (130-200) mg/dL LDL Cholesterol Direct (0-129) mg/dL HDL Cholesterol (29-60) mg/dL Amylase (35-125) U/L Lipase (23-300) U/L TSH 3rd Generation (0.46-4.68) mIU/mL Arterial Blood Potassium (3.6-5.2) mmol/L Venous Blood Potassium (3.6-5.2) mmol/L Urine Color (YELLOW) Urine Appearance (CLEAR) Urine pH (4.7-8.0) Ur Specific [place] (1.005-1.035) Urine Protein (<30 mg/dL) mg/dL Urine Glucose (UA) (NEGATIVE) mg/dL Urine Ketones (NEGATIVE) mg/dL Urine Blood (NEGATIVE) Urine Nitrate (NEGATIVE) Urine Bilirubin (NEGATIVE) Urine Urobilinogen (<1 E.U./dL) E.U./dL Ur Leukocyte Esterase (NEGATIVE) Fatimah/uL Urine RBC (0-2) /hpf Urine WBC (0-6) /hpf Ur Epithelial Cells (0-5) /hpf 03/31/18 Range/Units 18:56 WBC (4.5-11.0) 10^3/ul RBC (3.5-6.1) 10^6/uL Hgb (14.0-18.0) g/dL Hct (42.0-52.0) % MCV (80.0-105.0) fl MCH (25.0-35.0) pg MCHC (31.0-37.0) g/dl RDW (11.5-14.5) % Plt Count (120.0-450.0) 10^3/uL MPV (7.0-11.0) fl PT (9.4-12.5) SECONDS INR (0.93-1.08) APTT (25.1-36.5) Seconds pCO2 19 L* (35-45) mm/Hg pO2 554.0 H (80-100) mm/Hg HCO3 TEST NOT PERFORMED ABG pH < 6.80 L* (7.35-7.45) ABG Total CO2 TEST NOT PERFORMED ABG O2 Saturation 100.8 H (95-98) % ABG O2 Content (15-23) ML/dl ABG Base Excess TEST NOT PERFORMED ABG Hemoglobin (11.7-17.4) g/dL ABG Carboxyhemoglobin (0.5-1.5) % POC ABG HHb (Measured) (0-5) % ABG Methemoglobin (0.0-3.0) % ABG O2 Capacity (16-24) mL/dl ABG Potassium 4.9 (3.6-5.2) mmol/L VBG pH (7.32-7.43) VBG pCO2 (40-60) VBG HCO3 (21-28) mmol/l VBG Total CO2 (22-28) mmol.L VBG O2 Sat (Calc) (40-65) % VBG Base Excess (0.0-2.0) mmol/L VBG Potassium (3.6-5.2) mmol/L Hgb O2 Saturation (95.0-98.0) % Sodium 140.0 (132-148) mmol/L Chloride 114.0 H (98-107) mmol/L Glucose 418 H* D (75-110) mg/dl Lactate 1.5 (0.7-2.1) mmol/L Mechanical Rate 30 FiO2 100.0 % Tidal Volume 420 PEEP Potassium (3.6-5.0) mmol/L Carbon Dioxide (21-33) mmol/L Anion Gap (10-20) BUN (7-21) mg/dL Creatinine (0.8-1.5) mg/dl Est GFR ( Amer) Est GFR (Non-Af Amer) POC Glucose (mg/dL) (65-110) mg/dL Random Glucose (70-110) mg/dL Serum Osmolality (272-300) mosm/kg Calcium (8.4-10.5) mg/dL Phosphorus (2.5-4.5) mg/dL Magnesium (1.7-2.2) mg/dL Total Bilirubin (0.2-1.3) mg/dL AST (17-59) U/L ALT (7-56) U/L Alkaline Phosphatase (38-126) U/L NT-Pro-B Natriuret Pep (0-450) pg/mL Total Protein (5.8-8.3) g/dL Albumin (3.0-4.8) g/dL Globulin gm/dL Albumin/Globulin Ratio (1.1-1.8) Triglycerides (35-160) mg/dL Cholesterol (130-200) mg/dL LDL Cholesterol Direct (0-129) mg/dL HDL Cholesterol (29-60) mg/dL Amylase (35-125) U/L Lipase (23-300) U/L TSH 3rd Generation (0.46-4.68) mIU/mL Arterial Blood Potassium 4.9 (3.6-5.2) mmol/L Venous Blood Potassium (3.6-5.2) mmol/L Urine Color (YELLOW) Urine Appearance (CLEAR) Urine pH (4.7-8.0) Ur Specific [place] (1.005-1.035) Urine Protein (<30 mg/dL) mg/dL Urine Glucose (UA) (NEGATIVE) mg/dL Urine Ketones (NEGATIVE) mg/dL Urine Blood (NEGATIVE) Urine Nitrate (NEGATIVE) Urine Bilirubin (NEGATIVE) Urine Urobilinogen (<1 E.U./dL) E.U./dL Ur Leukocyte Esterase (NEGATIVE) Fatimah/uL Urine RBC (0-2) /hpf Urine WBC (0-6) /hpf Ur Epithelial Cells (0-5) /hpf Laboratory Results - last 24 hr 03/31/18 03/31/18 03/31/18 18:56 20:06 20:15 WBC RBC Hgb Hct MCV MCH MCHC RDW Plt Count MPV PT INR APTT pCO2 19 L* pO2 554.0 H HCO3 TEST NOT PERFORMED ABG pH < 6.80 L* ABG Total CO2 TEST NOT PERFORMED ABG O2 Saturation 100.8 H ABG O2 Content ABG Base Excess TEST NOT PERFORMED ABG Hemoglobin ABG Carboxyhemoglobin POC ABG HHb (Measured) ABG Methemoglobin ABG O2 Capacity ABG Potassium 4.9 VBG pH VBG pCO2 VBG HCO3 VBG Total CO2 VBG O2 Sat (Calc) VBG Base Excess VBG Potassium Hgb O2 Saturation Sodium 140.0 Chloride 114.0 H Glucose 418 H* D Lactate 1.5 Mechanical Rate 30 FiO2 100.0 Tidal Volume 420 PEEP Potassium Carbon Dioxide Anion Gap BUN Creatinine Est GFR ( Amer) Est GFR (Non-Af Amer) POC Glucose (mg/dL) 241 H Random Glucose Serum Osmolality 330 H Calcium Phosphorus Magnesium Total Bilirubin AST ALT Alkaline Phosphatase NT-Pro-B Natriuret Pep Total Protein Albumin Globulin Albumin/Globulin Ratio Triglycerides Cholesterol LDL Cholesterol Direct HDL Cholesterol Amylase Lipase TSH 3rd Generation Arterial Blood Potassium 4.9 Venous Blood Potassium Urine Color Urine Appearance Urine pH Ur Specific [place] Urine Protein Urine Glucose (UA) Urine Ketones Urine Blood Urine Nitrate Urine Bilirubin Urine Urobilinogen Ur Leukocyte Esterase Urine RBC Urine WBC Ur Epithelial Cells 03/31/18 03/31/18 03/31/18 20:58 21:20 21:20 WBC RBC Hgb Hct MCV MCH MCHC RDW Plt Count MPV PT INR APTT pCO2 pO2 43 HCO3 ABG pH ABG Total CO2 ABG O2 Saturation ABG O2 Content ABG Base Excess ABG Hemoglobin ABG Carboxyhemoglobin POC ABG HHb (Measured) ABG Methemoglobin ABG O2 Capacity ABG Potassium VBG pH 7.03 L* VBG pCO2 52.0 VBG HCO3 13.7 L VBG Total CO2 15.3 L VBG O2 Sat (Calc) 87.7 H VBG Base Excess -17.1 L VBG Potassium 3.9 Hgb O2 Saturation Sodium 147 143.0 Chloride 111 H 110.0 H Glucose 590 H* D Lactate 1.5 Mechanical Rate FiO2 21.0 Tidal Volume PEEP Potassium 4.0 Carbon Dioxide 12 L Anion Gap 28 H BUN 9 Creatinine 0.7 L Est GFR ( Amer) > 60 Est GFR (Non-Af Amer) > 60 POC Glucose (mg/dL) 195 H Random Glucose 557 H* Serum Osmolality Calcium 6.4 L* Phosphorus Magnesium Total Bilirubin AST ALT Alkaline Phosphatase NT-Pro-B Natriuret Pep Total Protein Albumin Globulin Albumin/Globulin Ratio Triglycerides Cholesterol LDL Cholesterol Direct HDL Cholesterol Amylase Lipase TSH 3rd Generation Arterial Blood Potassium Venous Blood Potassium 3.9 Urine Color Urine Appearance Urine pH Ur Specific [place] Urine Protein Urine Glucose (UA) Urine Ketones Urine Blood Urine Nitrate Urine Bilirubin Urine Urobilinogen Ur Leukocyte Esterase Urine RBC Urine WBC Ur Epithelial Cells 03/31/18 03/31/18 03/31/18 21:20 21:26 21:41 WBC RBC Hgb Hct MCV MCH MCHC RDW Plt Count MPV PT 10.8 INR 0.95 APTT 21.0 L pCO2 17 L* pO2 574.0 H HCO3 5.0 L* ABG pH 7.08 L* ABG Total CO2 5.5 L ABG O2 Saturation 100.0 H ABG O2 Content 19.3 ABG Base Excess -23.1 L ABG Hemoglobin 12.9 ABG Carboxyhemoglobin 1.0 POC ABG HHb (Measured) 0 ABG Methemoglobin 1.2 ABG O2 Capacity 19.3 ABG Potassium VBG pH VBG pCO2 VBG HCO3 VBG Total CO2 VBG O2 Sat (Calc) VBG Base Excess VBG Potassium Hgb O2 Saturation 97.8 Sodium Chloride Glucose Lactate Mechanical Rate FiO2 100.0 Tidal Volume PEEP Potassium Carbon Dioxide Anion Gap BUN Creatinine Est GFR ( Amer) Est GFR (Non-Af Amer) POC Glucose (mg/dL) Random Glucose Serum Osmolality Calcium Phosphorus Magnesium Total Bilirubin AST ALT Alkaline Phosphatase NT-Pro-B Natriuret Pep Total Protein Albumin Globulin Albumin/Globulin Ratio Triglycerides Cholesterol LDL Cholesterol Direct HDL Cholesterol Amylase Lipase TSH 3rd Generation Arterial Blood Potassium Venous Blood Potassium Urine Color Yellow Urine Appearance Clear Urine pH 6.0 Ur Specific [place] >= 1.030 Urine Protein 30 H Urine Glucose (UA) 250 H Urine Ketones >=80 Urine Blood Moderate H Urine Nitrate Negative Urine Bilirubin Negative Urine Urobilinogen 0.2 Ur Leukocyte Esterase Negative Urine RBC 20 - 25 Urine WBC 2 - 5 Ur Epithelial Cells 6 - 8 03/31/18 03/31/18 04/01/18 21:55 23:07 00:34 WBC RBC Hgb Hct MCV MCH MCHC RDW Plt Count MPV PT INR APTT pCO2 pO2 HCO3 ABG pH ABG Total CO2 ABG O2 Saturation ABG O2 Content ABG Base Excess ABG Hemoglobin ABG Carboxyhemoglobin POC ABG HHb (Measured) ABG Methemoglobin ABG O2 Capacity ABG Potassium VBG pH VBG pCO2 VBG HCO3 VBG Total CO2 VBG O2 Sat (Calc) VBG Base Excess VBG Potassium Hgb O2 Saturation Sodium Chloride Glucose Lactate Mechanical Rate FiO2 Tidal Volume PEEP Potassium Carbon Dioxide Anion Gap BUN Creatinine Est GFR ( Amer) Est GFR (Non-Af Amer) POC Glucose (mg/dL) 182 H 256 H 149 H Random Glucose Serum Osmolality Calcium Phosphorus Magnesium Total Bilirubin AST ALT Alkaline Phosphatase NT-Pro-B Natriuret Pep Total Protein Albumin Globulin Albumin/Globulin Ratio Triglycerides Cholesterol LDL Cholesterol Direct HDL Cholesterol Amylase Lipase TSH 3rd Generation Arterial Blood Potassium Venous Blood Potassium Urine Color Urine Appearance Urine pH Ur Specific [place] Urine Protein Urine Glucose (UA) Urine Ketones Urine Blood Urine Nitrate Urine Bilirubin Urine Urobilinogen Ur Leukocyte Esterase Urine RBC Urine WBC Ur Epithelial Cells 04/01/18 04/01/18 04/01/18 00:55 01:03 01:36 WBC RBC Hgb Hct MCV MCH MCHC RDW Plt Count MPV PT INR APTT pCO2 23 L pO2 545.0 H HCO3 11.3 L ABG pH 7.30 L ABG Total CO2 12.0 L ABG O2 Saturation 99.8 H ABG O2 Content ABG Base Excess -13.1 L ABG Hemoglobin ABG Carboxyhemoglobin POC ABG HHb (Measured) ABG Methemoglobin ABG O2 Capacity ABG Potassium 3.1 L VBG pH VBG pCO2 VBG HCO3 VBG Total CO2 VBG O2 Sat (Calc) VBG Base Excess VBG Potassium Hgb O2 Saturation Sodium 146.0 Cancelled Chloride 125.0 H Cancelled Glucose 145 H Lactate 1.1 Mechanical Rate 40 FiO2 100.0 Tidal Volume PEEP 5 Potassium Cancelled Carbon Dioxide Cancelled Anion Gap Cancelled BUN Cancelled Creatinine Est GFR ( Amer) Cancelled Est GFR (Non-Af Amer) Cancelled POC Glucose (mg/dL) 138 H Random Glucose Cancelled Serum Osmolality Calcium Cancelled Phosphorus Magnesium Total Bilirubin AST ALT Alkaline Phosphatase NT-Pro-B Natriuret Pep 313 Total Protein Albumin Globulin Albumin/Globulin Ratio Triglycerides Cholesterol LDL Cholesterol Direct HDL Cholesterol Amylase Lipase TSH 3rd Generation Arterial Blood Potassium 3.1 L Venous Blood Potassium Urine Color Urine Appearance Urine pH Ur Specific [place] Urine Protein Urine Glucose (UA) Urine Ketones Urine Blood Urine Nitrate Urine Bilirubin Urine Urobilinogen Ur Leukocyte Esterase Urine RBC Urine WBC Ur Epithelial Cells 04/01/18 04/01/18 04/01/18 02:15 02:24 03:03 WBC RBC Hgb Hct MCV MCH MCHC RDW Plt Count MPV PT INR APTT pCO2 pO2 HCO3 ABG pH ABG Total CO2 ABG O2 Saturation ABG O2 Content ABG Base Excess ABG Hemoglobin ABG Carboxyhemoglobin POC ABG HHb (Measured) ABG Methemoglobin ABG O2 Capacity ABG Potassium VBG pH VBG pCO2 VBG HCO3 VBG Total CO2 VBG O2 Sat (Calc) VBG Base Excess VBG Potassium Hgb O2 Saturation Sodium 149 H Chloride 121 H Glucose Lactate Mechanical Rate FiO2 Tidal Volume PEEP Potassium 3.6 Carbon Dioxide 13 L Anion Gap 19 BUN 8 Creatinine 0.7 L Est GFR ( Amer) > 60 Est GFR (Non-Af Amer) > 60 POC Glucose (mg/dL) 117 H 111 H Random Glucose 131 H Serum Osmolality Calcium 7.6 L Phosphorus 0.9 L* Magnesium 1.9 Total Bilirubin 0.5 AST 20 ALT 24 Alkaline Phosphatase 92 NT-Pro-B Natriuret Pep Total Protein 5.5 L Albumin 3.1 Globulin 2.4 Albumin/Globulin Ratio 1.3 Triglycerides Cholesterol LDL Cholesterol Direct HDL Cholesterol Amylase Lipase TSH 3rd Generation Arterial Blood Potassium Venous Blood Potassium Urine Color Urine Appearance Urine pH Ur Specific [place] Urine Protein Urine Glucose (UA) Urine Ketones Urine Blood Urine Nitrate Urine Bilirubin Urine Urobilinogen Ur Leukocyte Esterase Urine RBC Urine WBC Ur Epithelial Cells 04/01/18 04/01/18 04/01/18 05:05 05:05 05:05 WBC 13.3 H D RBC 4.27 Hgb 12.2 L D Hct 35.6 L MCV 83.4 D MCH 28.6 MCHC 34.3 RDW 13.6 Plt Count 288 MPV 8.4 PT INR APTT pCO2 pO2 HCO3 ABG pH ABG Total CO2 ABG O2 Saturation ABG O2 Content ABG Base Excess ABG Hemoglobin ABG Carboxyhemoglobin POC ABG HHb (Measured) ABG Methemoglobin ABG O2 Capacity ABG Potassium VBG pH VBG pCO2 VBG HCO3 VBG Total CO2 VBG O2 Sat (Calc) VBG Base Excess VBG Potassium Hgb O2 Saturation Sodium 149 H Chloride 122 H Glucose Lactate Mechanical Rate FiO2 Tidal Volume PEEP Potassium 3.9 Carbon Dioxide 11 L Anion Gap 20 BUN 7 Creatinine 0.6 L Est GFR ( Amer) > 60 Est GFR (Non-Af Amer) > 60 POC Glucose (mg/dL) Random Glucose 183 H Serum Osmolality Calcium 7.8 L Phosphorus 1.7 L Magnesium 1.8 Total Bilirubin 0.5 AST 20 ALT 32 Alkaline Phosphatase 99 NT-Pro-B Natriuret Pep Total Protein 5.6 L Albumin 3.1 Globulin 2.4 Albumin/Globulin Ratio 1.3 Triglycerides 134 Cholesterol 141 LDL Cholesterol Direct 73 HDL Cholesterol 52 Amylase 274 H Lipase 634 H TSH 3rd Generation 0.79 Arterial Blood Potassium Venous Blood Potassium Urine Color Urine Appearance Urine pH Ur Specific [place] Urine Protein Urine Glucose (UA) Urine Ketones Urine Blood Urine Nitrate Urine Bilirubin Urine Urobilinogen Ur Leukocyte Esterase Urine RBC Urine WBC Ur Epithelial Cells 04/01/18 04/01/18 04/01/18 05:20 06:10 06:42 WBC RBC Hgb Hct MCV MCH MCHC RDW Plt Count MPV PT 10.9 INR 0.95 APTT 24.1 L pCO2 17 L* pO2 257.0 H HCO3 7.1 L* ABG pH 7.23 L ABG Total CO2 7.6 L ABG O2 Saturation 100.0 H ABG O2 Content 13.7 L ABG Base Excess -18.5 L ABG Hemoglobin 9.5 L ABG Carboxyhemoglobin 1.3 POC ABG HHb (Measured) 0 ABG Methemoglobin 0.9 ABG O2 Capacity 13.7 L ABG Potassium VBG pH VBG pCO2 VBG HCO3 VBG Total CO2 VBG O2 Sat (Calc) VBG Base Excess VBG Potassium Hgb O2 Saturation 97.8 Sodium Chloride Glucose Lactate Mechanical Rate FiO2 100.0 Tidal Volume PEEP Potassium Carbon Dioxide Anion Gap BUN Creatinine Est GFR ( Amer) Est GFR (Non-Af Amer) POC Glucose (mg/dL) 217 H Random Glucose Serum Osmolality Calcium Phosphorus Magnesium Total Bilirubin AST ALT Alkaline Phosphatase NT-Pro-B Natriuret Pep Total Protein Albumin Globulin Albumin/Globulin Ratio Triglycerides Cholesterol LDL Cholesterol Direct HDL Cholesterol Amylase Lipase TSH 3rd Generation Arterial Blood Potassium Venous Blood Potassium Urine Color Urine Appearance Urine pH Ur Specific [place] Urine Protein Urine Glucose (UA) Urine Ketones Urine Blood Urine Nitrate Urine Bilirubin Urine Urobilinogen Ur Leukocyte Esterase Urine RBC Urine WBC Ur Epithelial Cells 04/01/18 04/01/18 04/01/18 07:21 08:09 08:55 WBC RBC Hgb Hct MCV MCH MCHC RDW Plt Count MPV PT INR APTT pCO2 pO2 HCO3 ABG pH ABG Total CO2 ABG O2 Saturation ABG O2 Content ABG Base Excess ABG Hemoglobin ABG Carboxyhemoglobin POC ABG HHb (Measured) ABG Methemoglobin ABG O2 Capacity ABG Potassium VBG pH VBG pCO2 VBG HCO3 VBG Total CO2 VBG O2 Sat (Calc) VBG Base Excess VBG Potassium Hgb O2 Saturation Sodium Chloride Glucose Lactate Mechanical Rate FiO2 Tidal Volume PEEP Potassium Carbon Dioxide Anion Gap BUN Creatinine Est GFR ( Amer) Est GFR (Non-Af Amer) POC Glucose (mg/dL) 198 H 201 H 194 H Random Glucose Serum Osmolality Calcium Phosphorus Magnesium Total Bilirubin AST ALT Alkaline Phosphatase NT-Pro-B Natriuret Pep Total Protein Albumin Globulin Albumin/Globulin Ratio Triglycerides Cholesterol LDL Cholesterol Direct HDL Cholesterol Amylase Lipase TSH 3rd Generation Arterial Blood Potassium Venous Blood Potassium Urine Color Urine Appearance Urine pH Ur Specific [place] Urine Protein Urine Glucose (UA) Urine Ketones Urine Blood Urine Nitrate Urine Bilirubin Urine Urobilinogen Ur Leukocyte Esterase Urine RBC Urine WBC Ur Epithelial Cells 07/04/18 07/04/18 07/04/18 09:58 10:20 10:20 WBC RBC Hgb Hct MCV MCH MCHC RDW Plt Count MPV PT INR APTT pCO2 pO2 HCO3 ABG pH ABG Total CO2 ABG O2 Saturation ABG O2 Content ABG Base Excess ABG Hemoglobin ABG Carboxyhemoglobin POC ABG HHb (Measured) ABG Methemoglobin ABG O2 Capacity ABG Potassium VBG pH VBG pCO2 VBG HCO3 VBG Total CO2 VBG O2 Sat (Calc) VBG Base Excess VBG Potassium Hgb O2 Saturation Sodium 150 H Chloride 120 H Glucose Lactate Mechanical Rate FiO2 Tidal Volume PEEP Potassium 4.2 Carbon Dioxide 14 L Anion Gap 19 BUN 5 L Creatinine 0.5 L Est GFR ( Amer) > 60 Est GFR (Non-Af Amer) > 60 POC Glucose (mg/dL) 159 H Random Glucose 162 H Serum Osmolality Calcium 8.1 L Phosphorus Magnesium Total Bilirubin AST ALT Alkaline Phosphatase NT-Pro-B Natriuret Pep Total Protein Albumin Globulin Albumin/Globulin Ratio Triglycerides Cholesterol LDL Cholesterol Direct HDL Cholesterol Amylase Lipase 273 TSH 3rd Generation Arterial Blood Potassium Venous Blood Potassium Urine Color Urine Appearance Urine pH Ur Specific [place] Urine Protein Urine Glucose (UA) Urine Ketones Urine Blood Urine Nitrate Urine Bilirubin Urine Urobilinogen Ur Leukocyte Esterase Urine RBC Urine WBC Ur Epithelial Cells 04/01/18 11:09 WBC RBC Hgb Hct MCV MCH MCHC RDW Plt Count MPV PT INR APTT pCO2 pO2 HCO3 ABG pH ABG Total CO2 ABG O2 Saturation ABG O2 Content ABG Base Excess ABG Hemoglobin ABG Carboxyhemoglobin POC ABG HHb (Measured) ABG Methemoglobin ABG O2 Capacity ABG Potassium VBG pH VBG pCO2 VBG HCO3 VBG Total CO2 VBG O2 Sat (Calc) VBG Base Excess VBG Potassium Hgb O2 Saturation Sodium Chloride Glucose Lactate Mechanical Rate FiO2 Tidal Volume PEEP Potassium Carbon Dioxide Anion Gap BUN Creatinine Est GFR ( Amer) Est GFR (Non-Af Amer) POC Glucose (mg/dL) 154 H Random Glucose Serum Osmolality Calcium Phosphorus Magnesium Total Bilirubin AST ALT Alkaline Phosphatase NT-Pro-B Natriuret Pep Total Protein Albumin Globulin Albumin/Globulin Ratio Triglycerides Cholesterol LDL Cholesterol Direct HDL Cholesterol Amylase Lipase TSH 3rd Generation Arterial Blood Potassium Venous Blood Potassium Urine Color Urine Appearance Urine pH Ur Specific [place] Urine Protein Urine Glucose (UA) Urine Ketones Urine Blood Urine Nitrate Urine Bilirubin Urine Urobilinogen Ur Leukocyte Esterase Urine RBC Urine WBC Ur Epithelial Cells Fingerstick Blood Sugar Results: 402 Review of Systems - Review of Systems Systems not reviewed;Unavailable: Intubated Critical Care Progress Note - Ventilator Checklist Head of Bed 30 Degrees: Yes Daily Sedation Vacation: Yes Daily Assessment of Readiness to Wean: Yes Daily Spontaneous Breathing Trial: Yes PUD Prophalyxis: Yes DVT Prophylaxis: Yes Oral Care with Chlorhexidine Gluconate {CHG}: Yes - Vent Settings MODE:: PRESSURE SUPPORT - Extremities/Vascular Does the Patient have a Central Venous Catheter?: No Does the Patient need a Central Venous Catheter?: No Does the Patient have a Curiel Catheter?: Yes Does the Patient need a Curiel Catheter?: Yes Catheter Insertion Criteria: Patient requires prolonged immobilization - Restraints Justification for Restraints: High risk for self extubation, High risk for removing IV access, High risk for harming self - Prophylaxis GI Prophylaxis GI: PPI - Prophylaxis DVT Prophylaxis DVT: Heparin SQ - Nutrition Nutrition: Nutrition Category Date Time Status NPO Diet [DIET] Diets 03/31/18 Dinner Ordered Assessment/Plan - Assessment and Plan (Free Text) Assessment: 27-year-old male the past medical history DM1 and medication noncompliance who presents in DKA and lactic acidosis due to noncompliance with his insulin ( patient has had multiple hospital visits with same presentation). On admission the patient met criteria for sepsis, but at this time sepsis workup has been negative. Anion gap remains open at this time, patient is on insulin drip and is receiving bicarb. Plan: Neuro monitoring changes in mental status maintain normothermia; tylenol prn on sedation, daily trials to wean off CV maintain euvolemia conservative fluid management w/ goal of net even or negative fluid balance per FACTT trial cont to monitor VS Pulm patient is intubated and on vent maintain head of bed > 30 deg maintain proper oral hygiene with chlorhexidine maintain GI and DVT ppx maintain protective lung ventilation strategy with low tidal volume ventilation (4-8 mL/kg for optimal weight) will carry out daily weaning trials off vent GI lipase ordered to r/o pancreatitis as infectious trigger for DKA GI ppx NPO Renal Monitor electrolytes (especially potassium) while on insulin gtt Correct electrolytes PRN If potassium 3.5-5.3, give 30 mEq of potassium in each liter of IVF with goal potassium of 4-5; If potassium less than 3.3, hold insulin and give 40 mEq potassium per hour with goal potassium more than 3.3 monitor u/o w/ goal net negative fluid balance Endo cont insulin drip until AG closes will switch to SC insulin once gap closes ID tylenol prn cont broad spectrum abx procal pending results blood, urine cultures pending results ID is consulted, recs appreciated Heme leukocytosis noted; sepsis work up is pending monitor CBC daily DVT ppx Dispo: continue daily weaning trials off sedation and vent. Patient will be switched to SC insulin once anion gap closes. Patient was seen and evaluated with attending, Dr. Morley <Christo Morley - Last Filed: 04/01/18 16:56> CCU Objective - Vital Signs / Intake & Output Intake and Output (Last 8hrs): Intake & Output 04/01/18 04/01/18 04/01/18 06:59 14:59 22:59 Intake Total 196 388 2 Balance 196 388 2 Intake: IV 196 388 2 - Medications Active Medications: Active Medications Generic Name Dose Route Start Last Admin Trade Name Freq PRN Reason Stop Dose Admin Heparin Sodium (Porcine) 5,000 units 04/01/18 14:00 04/01/18 13:03 Heparin SC 5,000 units Q8 WILIAN Administration Protocol Midazolam 100 mg/100ml in NS 100 mg in 100 mls @ 1 mls/hr 03/31/18 18:36 01/14 08:00 Midazolam 100 Mg/100ml In Ns IV 0 mg/hr .Q24H PRN 0 mls/hr Sedation Titration Protocol 1 MG/HR Meropenem 50 mls @ 100 mls/hr 04/01/18 06:00 04/01/18 13:05 Merrem Iv 1 Gm Premix IVPB 04/10/18 06:01 100 mls/hr Q8 WILIAN Administration Protocol Vancomycin HCl 1 gm in 250 mls @ 167 mls/hr 04/01/18 10:00 04/01/18 09:14 Vancomycin 1gm IVPB 167 mls/hr Q12 WILIAN Administration Protocol Propofol 1,000 mg in 100 mls @ 2.245 mls/hr 03/31/18 22:18 04/01/18 13:30 Diprivan IV 40 mcg/kg/min .Q24H PRN 17.962 mls/hr TITRATE PER MD ORDER Titration Protocol 5 MCG/KG/MIN Acetaminophen 1,000 mg in 100 mls @ 400 mls/hr 04/01/18 01:30 04/01/18 02:06 Ofirmev IVPB 04/03/18 01:31 400 mls/hr Q6H PRN Administration Temperature Sodium Bicarbonate 150 meq/ 1,150 mls @ 150 mls/hr 04/01/18 08:45 04/01/18 09 :27 Dextrose IV 150 mls/hr .[id number] WILIAN Administration Dexmedetomidine HCl 400 mcg in 100 mls @ 3.361 mls/hr 04/01/18 09:53 13:30 Precedex 400mcg/100ml IV 0.6 mcg/kg/hr .Q24H PRN 10.083 mls/hr Agitation Titration Protocol 0.2 MCG/KG/HR Insulin Detemir 14 unit 04/01/18 16:00 Levemir SC DAILY WILIAN Insulin Human Lispro 0 units 04/01/18 16:00 Humalog Med SC Q4 WILIAN Protocol Pantoprazole Sodium 40 mg 04/01/18 10:00 04/01/18 09:06 Protonix Inj IVP 40 mg DAILY WILIAN Administration - Patient Studies Lab Studies: Lab Studies 04/01/18 04/01/18 04/01/18 Range/Units 16:03 14:57 14:12 WBC (4.5-11.0) 10^3/ul RBC (3.5-6.1) 10^6/uL Hgb (14.0-18.0) g/dL Hct (42.0-52.0) % MCV (80.0-105.0) fl MCH (25.0-35.0) pg MCHC (31.0-37.0) g/dl RDW (11.5-14.5) % Plt Count (120.0-450.0) 10^3/uL MPV (7.0-11.0) fl PT (9.4-12.5) SECONDS INR (0.93-1.08) APTT (25.1-36.5) Seconds pCO2 (35-45) mm/Hg pO2 (80-100) mm/Hg HCO3 ABG pH (7.35-7.45) ABG Total CO2 ABG O2 Saturation (95-98) % ABG O2 Content (15-23) ML/dl ABG Base Excess ABG Hemoglobin (11.7-17.4) g/dL ABG Carboxyhemoglobin (0.5-1.5) % POC ABG HHb (Measured) (0-5) % ABG Methemoglobin (0.0-3.0) % ABG O2 Capacity (16-24) mL/dl ABG Potassium (3.6-5.2) mmol/L VBG pH (7.32-7.43) VBG pCO2 (40-60) VBG HCO3 (21-28) mmol/l VBG Total CO2 (22-28) mmol.L VBG O2 Sat (Calc) (40-65) % VBG Base Excess (0.0-2.0) mmol/L VBG Potassium (3.6-5.2) mmol/L Hgb O2 Saturation (95.0-98.0) % Sodium (132-148) mmol/L Chloride (98-107) mmol/L Glucose (75-110) mg/dl Lactate (0.7-2.1) mmol/L Mechanical Rate FiO2 % Tidal Volume PEEP Potassium (3.6-5.0) mmol/L Carbon Dioxide (21-33) mmol/L Anion Gap (10-20) BUN (7-21) mg/dL Creatinine (0.8-1.5) mg/dl Est GFR ( Amer) Est GFR (Non-Af Amer) POC Glucose (mg/dL) 135 H 126 H 113 H (65-110) mg/dL Random Glucose (70-110) mg/dL Hemoglobin A1c (4.2-6.5) % Serum Osmolality (272-300) mosm/kg Calcium (8.4-10.5) mg/dL Phosphorus (2.5-4.5) mg/dL Magnesium (1.7-2.2) mg/dL Total Bilirubin (0.2-1.3) mg/dL AST (17-59) U/L ALT (7-56) U/L Alkaline Phosphatase (38-126) U/L NT-Pro-B Natriuret Pep (0-450) pg/mL Total Protein (5.8-8.3) g/dL Albumin (3.0-4.8) g/dL Globulin gm/dL Albumin/Globulin Ratio (1.1-1.8) Triglycerides (35-160) mg/dL Cholesterol (130-200) mg/dL LDL Cholesterol Direct (0-129) mg/dL HDL Cholesterol (29-60) mg/dL Amylase (35-125) U/L Lipase (23-300) U/L TSH 3rd Generation (0.46-4.68) mIU/mL Arterial Blood Potassium (3.6-5.2) mmol/L Venous Blood Potassium (3.6-5.2) mmol/L Urine Color (YELLOW) Urine Appearance (CLEAR) Urine pH (4.7-8.0) Ur Specific [place] (1.005-1.035) Urine Protein (<30 mg/dL) mg/dL Urine Glucose (UA) (NEGATIVE) mg/dL Urine Ketones (NEGATIVE) mg/dL Urine Blood (NEGATIVE) Urine Nitrate (NEGATIVE) Urine Bilirubin (NEGATIVE) Urine Urobilinogen (<1 E.U./dL) E.U./dL Ur Leukocyte Esterase (NEGATIVE) Fatimah/uL Urine RBC (0-2) /hpf Urine WBC (0-6) /hpf Ur Epithelial Cells (0-5) /hpf 04/01/18 04/01/18 04/01/18 Range/Units 12:50 11:09 10:20 WBC (4.5-11.0) 10^3/ul RBC (3.5-6.1) 10^6/uL Hgb (14.0-18.0) g/dL Hct (42.0-52.0) % MCV (80.0-105.0) fl MCH (25.0-35.0) pg MCHC (31.0-37.0) g/dl RDW (11.5-14.5) % Plt Count (120.0-450.0) 10^3/uL MPV (7.0-11.0) fl PT (9.4-12.5) SECONDS INR (0.93-1.08) APTT (25.1-36.5) Seconds pCO2 (35-45) mm/Hg pO2 (80-100) mm/Hg HCO3 ABG pH (7.35-7.45) ABG Total CO2 ABG O2 Saturation (95-98) % ABG O2 Content (15-23) ML/dl ABG Base Excess ABG Hemoglobin (11.7-17.4) g/dL ABG Carboxyhemoglobin (0.5-1.5) % POC ABG HHb (Measured) (0-5) % ABG Methemoglobin (0.0-3.0) % ABG O2 Capacity (16-24) mL/dl ABG Potassium (3.6-5.2) mmol/L VBG pH (7.32-7.43) VBG pCO2 (40-60) VBG HCO3 (21-28) mmol/l VBG Total CO2 (22-28) mmol.L VBG O2 Sat (Calc) (40-65) % VBG Base Excess (0.0-2.0) mmol/L VBG Potassium (3.6-5.2) mmol/L Hgb O2 Saturation (95.0-98.0) % Sodium 148 (132-148) mmol/L Chloride 119 H (98-107) mmol/L Glucose (75-110) mg/dl Lactate (0.7-2.1) mmol/L Mechanical Rate FiO2 % Tidal Volume PEEP Potassium 3.4 L (3.6-5.0) mmol/L Carbon Dioxide 19 L (21-33) mmol/L Anion Gap 15 (10-20) BUN 4 L (7-21) mg/dL Creatinine 0.5 L (0.8-1.5) mg/dl Est GFR ( Amer) > 60 Est GFR (Non-Af Amer) > 60 POC Glucose (mg/dL) 154 H (65-110) mg/dL Random Glucose 144 H (70-110) mg/dL Hemoglobin A1c (4.2-6.5) % Serum Osmolality (272-300) mosm/kg Calcium 7.9 L (8.4-10.5) mg/dL Phosphorus (2.5-4.5) mg/dL Magnesium (1.7-2.2) mg/dL Total Bilirubin (0.2-1.3) mg/dL AST (17-59) U/L ALT (7-56) U/L Alkaline Phosphatase (38-126) U/L NT-Pro-B Natriuret Pep (0-450) pg/mL Total Protein (5.8-8.3) g/dL Albumin (3.0-4.8) g/dL Globulin gm/dL Albumin/Globulin Ratio (1.1-1.8) Triglycerides (35-160) mg/dL Cholesterol (130-200) mg/dL LDL Cholesterol Direct (0-129) mg/dL HDL Cholesterol (29-60) mg/dL Amylase (35-125) U/L Lipase 273 (23-300) U/L TSH 3rd Generation (0.46-4.68) mIU/mL Arterial Blood Potassium (3.6-5.2) mmol/L Venous Blood Potassium (3.6-5.2) mmol/L Urine Color (YELLOW) Urine Appearance (CLEAR) Urine pH (4.7-8.0) Ur Specific [place] (1.005-1.035) Urine Protein (<30 mg/dL) mg/dL Urine Glucose (UA) (NEGATIVE) mg/dL Urine Ketones (NEGATIVE) mg/dL Urine Blood (NEGATIVE) Urine Nitrate (NEGATIVE) Urine Bilirubin (NEGATIVE) Urine Urobilinogen (<1 E.U./dL) E.U./dL Ur Leukocyte Esterase (NEGATIVE) Fatimah/uL Urine RBC (0-2) /hpf Urine WBC (0-6) /hpf Ur Epithelial Cells (0-5) /hpf 04/01/18 04/01/18 04/01/18 Range/Units 10:20 09:58 08:55 WBC (4.5-11.0) 10^3/ul RBC (3.5-6.1) 10^6/uL Hgb (14.0-18.0) g/dL Hct (42.0-52.0) % MCV (80.0-105.0) fl MCH (25.0-35.0) pg MCHC (31.0-37.0) g/dl RDW (11.5-14.5) % Plt Count (120.0-450.0) 10^3/uL MPV (7.0-11.0) fl PT (9.4-12.5) SECONDS INR (0.93-1.08) APTT (25.1-36.5) Seconds pCO2 (35-45) mm/Hg pO2 (80-100) mm/Hg HCO3 ABG pH (7.35-7.45) ABG Total CO2 ABG O2 Saturation (95-98) % ABG O2 Content (15-23) ML/dl ABG Base Excess ABG Hemoglobin (11.7-17.4) g/dL ABG Carboxyhemoglobin (0.5-1.5) % POC ABG HHb (Measured) (0-5) % ABG Methemoglobin (0.0-3.0) % ABG O2 Capacity (16-24) mL/dl ABG Potassium (3.6-5.2) mmol/L VBG pH (7.32-7.43) VBG pCO2 (40-60) VBG HCO3 (21-28) mmol/l VBG Total CO2 (22-28) mmol.L VBG O2 Sat (Calc) (40-65) % VBG Base Excess (0.0-2.0) mmol/L VBG Potassium (3.6-5.2) mmol/L Hgb O2 Saturation (95.0-98.0) % Sodium 150 H (132-148) mmol/L Chloride 120 H (98-107) mmol/L Glucose (75-110) mg/dl Lactate (0.7-2.1) mmol/L Mechanical Rate FiO2 % Tidal Volume PEEP Potassium 4.2 (3.6-5.0) mmol/L Carbon Dioxide 14 L (21-33) mmol/L Anion Gap 19 (10-20) BUN 5 L (7-21) mg/dL Creatinine 0.5 L (0.8-1.5) mg/dl Est GFR ( Amer) > 60 Est GFR (Non-Af Amer) > 60 POC Glucose (mg/dL) 159 H 194 H (65-110) mg/dL Random Glucose 162 H (70-110) mg/dL Hemoglobin A1c (4.2-6.5) % Serum Osmolality (272-300) mosm/kg Calcium 8.1 L (8.4-10.5) mg/dL Phosphorus (2.5-4.5) mg/dL Magnesium (1.7-2.2) mg/dL Total Bilirubin (0.2-1.3) mg/dL AST (17-59) U/L ALT (7-56) U/L Alkaline Phosphatase (38-126) U/L NT-Pro-B Natriuret Pep (0-450) pg/mL Total Protein (5.8-8.3) g/dL Albumin (3.0-4.8) g/dL Globulin gm/dL Albumin/Globulin Ratio (1.1-1.8) Triglycerides (35-160) mg/dL Cholesterol (130-200) mg/dL LDL Cholesterol Direct (0-129) mg/dL HDL Cholesterol (29-60) mg/dL Amylase (35-125) U/L Lipase (23-300) U/L TSH 3rd Generation (0.46-4.68) mIU/mL Arterial Blood Potassium (3.6-5.2) mmol/L Venous Blood Potassium (3.6-5.2) mmol/L Urine Color (YELLOW) Urine Appearance (CLEAR) Urine pH (4.7-8.0) Ur Specific [place] (1.005-1.035) Urine Protein (<30 mg/dL) mg/dL Urine Glucose (UA) (NEGATIVE) mg/dL Urine Ketones (NEGATIVE) mg/dL Urine Blood (NEGATIVE) Urine Nitrate (NEGATIVE) Urine Bilirubin (NEGATIVE) Urine Urobilinogen (<1 E.U./dL) E.U./dL Ur Leukocyte Esterase (NEGATIVE) Fatimah/uL Urine RBC (0-2) /hpf Urine WBC (0-6) /hpf Ur Epithelial Cells (0-5) /hpf 04/01/18 04/01/18 04/01/18 Range/Units 08:09 07:21 06:42 WBC (4.5-11.0) 10^3/ul RBC (3.5-6.1) 10^6/uL Hgb (14.0-18.0) g/dL Hct (42.0-52.0) % MCV (80.0-105.0) fl MCH (25.0-35.0) pg MCHC (31.0-37.0) g/dl RDW (11.5-14.5) % Plt Count (120.0-450.0) 10^3/uL MPV (7.0-11.0) fl PT (9.4-12.5) SECONDS INR (0.93-1.08) APTT (25.1-36.5) Seconds pCO2 (35-45) mm/Hg pO2 (80-100) mm/Hg HCO3 ABG pH (7.35-7.45) ABG Total CO2 ABG O2 Saturation (95-98) % ABG O2 Content (15-23) ML/dl ABG Base Excess ABG Hemoglobin (11.7-17.4) g/dL ABG Carboxyhemoglobin (0.5-1.5) % POC ABG HHb (Measured) (0-5) % ABG Methemoglobin (0.0-3.0) % ABG O2 Capacity (16-24) mL/dl ABG Potassium (3.6-5.2) mmol/L VBG pH (7.32-7.43) VBG pCO2 (40-60) VBG HCO3 (21-28) mmol/l VBG Total CO2 (22-28) mmol.L VBG O2 Sat (Calc) (40-65) % VBG Base Excess (0.0-2.0) mmol/L VBG Potassium (3.6-5.2) mmol/L Hgb O2 Saturation (95.0-98.0) % Sodium (132-148) mmol/L Chloride (98-107) mmol/L Glucose (75-110) mg/dl Lactate (0.7-2.1) mmol/L Mechanical Rate FiO2 % Tidal Volume PEEP Potassium (3.6-5.0) mmol/L Carbon Dioxide (21-33) mmol/L Anion Gap (10-20) BUN (7-21) mg/dL Creatinine (0.8-1.5) mg/dl Est GFR ( Amer) Est GFR (Non-Af Amer) POC Glucose (mg/dL) 201 H 198 H 217 H (65-110) mg/dL Random Glucose (70-110) mg/dL Hemoglobin A1c (4.2-6.5) % Serum Osmolality (272-300) mosm/kg Calcium (8.4-10.5) mg/dL Phosphorus (2.5-4.5) mg/dL Magnesium (1.7-2.2) mg/dL Total Bilirubin (0.2-1.3) mg/dL AST (17-59) U/L ALT (7-56) U/L Alkaline Phosphatase (38-126) U/L NT-Pro-B Natriuret Pep (0-450) pg/mL Total Protein (5.8-8.3) g/dL Albumin (3.0-4.8) g/dL Globulin gm/dL Albumin/Globulin Ratio (1.1-1.8) Triglycerides (35-160) mg/dL Cholesterol (130-200) mg/dL LDL Cholesterol Direct (0-129) mg/dL HDL Cholesterol (29-60) mg/dL Amylase (35-125) U/L Lipase (23-300) U/L TSH 3rd Generation (0.46-4.68) mIU/mL Arterial Blood Potassium (3.6-5.2) mmol/L Venous Blood Potassium (3.6-5.2) mmol/L Urine Color (YELLOW) Urine Appearance (CLEAR) Urine pH (4.7-8.0) Ur Specific [place] (1.005-1.035) Urine Protein (<30 mg/dL) mg/dL Urine Glucose (UA) (NEGATIVE) mg/dL Urine Ketones (NEGATIVE) mg/dL Urine Blood (NEGATIVE) Urine Nitrate (NEGATIVE) Urine Bilirubin (NEGATIVE) Urine Urobilinogen (<1 E.U./dL) E.U./dL Ur Leukocyte Esterase (NEGATIVE) Fatimah/uL Urine RBC (0-2) /hpf Urine WBC (0-6) /hpf Ur Epithelial Cells (0-5) /hpf 04/01/18 04/01/18 04/01/18 Range/Units 06:10 05:20 05:05 WBC (4.5-11.0) 10^3/ul RBC (3.5-6.1) 10^6/uL Hgb (14.0-18.0) g/dL Hct (42.0-52.0) % MCV (80.0-105.0) fl MCH (25.0-35.0) pg MCHC (31.0-37.0) g/dl RDW (11.5-14.5) % Plt Count (120.0-450.0) 10^3/uL MPV (7.0-11.0) fl PT 10.9 (9.4-12.5) SECONDS INR 0.95 (0.93-1.08) APTT 24.1 L (25.1-36.5) Seconds pCO2 17 L* (35-45) mm/Hg pO2 257.0 H (80-100) mm/Hg HCO3 7.1 L* ABG pH 7.23 L (7.35-7.45) ABG Total CO2 7.6 L ABG O2 Saturation 100.0 H (95-98) % ABG O2 Content 13.7 L (15-23) ML/dl ABG Base Excess -18.5 L ABG Hemoglobin 9.5 L (11.7-17.4) g/dL ABG Carboxyhemoglobin 1.3 (0.5-1.5) % POC ABG HHb (Measured) 0 (0-5) % ABG Methemoglobin 0.9 (0.0-3.0) % ABG O2 Capacity 13.7 L (16-24) mL/dl ABG Potassium (3.6-5.2) mmol/L VBG pH (7.32-7.43) VBG pCO2 (40-60) VBG HCO3 (21-28) mmol/l VBG Total CO2 (22-28) mmol.L VBG O2 Sat (Calc) (40-65) % VBG Base Excess (0.0-2.0) mmol/L VBG Potassium (3.6-5.2) mmol/L Hgb O2 Saturation 97.8 (95.0-98.0) % Sodium (132-148) mmol/L Chloride (98-107) mmol/L Glucose (75-110) mg/dl Lactate (0.7-2.1) mmol/L Mechanical Rate FiO2 100.0 % Tidal Volume PEEP Potassium (3.6-5.0) mmol/L Carbon Dioxide (21-33) mmol/L Anion Gap (10-20) BUN (7-21) mg/dL Creatinine (0.8-1.5) mg/dl Est GFR ( Amer) Est GFR (Non-Af Amer) POC Glucose (mg/dL) (65-110) mg/dL Random Glucose (70-110) mg/dL Hemoglobin A1c (4.2-6.5) % Serum Osmolality (272-300) mosm/kg Calcium (8.4-10.5) mg/dL Phosphorus (2.5-4.5) mg/dL Magnesium (1.7-2.2) mg/dL Total Bilirubin (0.2-1.3) mg/dL AST (17-59) U/L ALT (7-56) U/L Alkaline Phosphatase (38-126) U/L NT-Pro-B Natriuret Pep (0-450) pg/mL Total Protein (5.8-8.3) g/dL Albumin (3.0-4.8) g/dL Globulin gm/dL Albumin/Globulin Ratio (1.1-1.8) Triglycerides (35-160) mg/dL Cholesterol (130-200) mg/dL LDL Cholesterol Direct (0-129) mg/dL HDL Cholesterol (29-60) mg/dL Amylase (35-125) U/L Lipase (23-300) U/L TSH 3rd Generation 0.79 (0.46-4.68) mIU/mL Arterial Blood Potassium (3.6-5.2) mmol/L Venous Blood Potassium (3.6-5.2) mmol/L Urine Color (YELLOW) Urine Appearance (CLEAR) Urine pH (4.7-8.0) Ur Specific [place] (1.005-1.035) Urine Protein (<30 mg/dL) mg/dL Urine Glucose (UA) (NEGATIVE) mg/dL Urine Ketones (NEGATIVE) mg/dL Urine Blood (NEGATIVE) Urine Nitrate (NEGATIVE) Urine Bilirubin (NEGATIVE) Urine Urobilinogen (<1 E.U./dL) E.U./dL Ur Leukocyte Esterase (NEGATIVE) Fatimah/uL Urine RBC (0-2) /hpf Urine WBC (0-6) /hpf Ur Epithelial Cells (0-5) /hpf 04/01/18 04/01/18 04/01/18 Range/Units 05:05 05:05 05:05 WBC 13.3 H D (4.5-11.0) 10^3/ul RBC 4.27 (3.5-6.1) 10^6/uL Hgb 12.2 L D (14.0-18.0) g/dL Hct 35.6 L (42.0-52.0) % MCV 83.4 D (80.0-105.0) fl MCH 28.6 (25.0-35.0) pg MCHC 34.3 (31.0-37.0) g/dl RDW 13.6 (11.5-14.5) % Plt Count 288 (120.0-450.0) 10^3/uL MPV 8.4 (7.0-11.0) fl PT (9.4-12.5) SECONDS INR (0.93-1.08) APTT (25.1-36.5) Seconds pCO2 (35-45) mm/Hg pO2 (80-100) mm/Hg HCO3 ABG pH (7.35-7.45) ABG Total CO2 ABG O2 Saturation (95-98) % ABG O2 Content (15-23) ML/dl ABG Base Excess ABG Hemoglobin (11.7-17.4) g/dL ABG Carboxyhemoglobin (0.5-1.5) % POC ABG HHb (Measured) (0-5) % ABG Methemoglobin (0.0-3.0) % ABG O2 Capacity (16-24) mL/dl ABG Potassium (3.6-5.2) mmol/L VBG pH (7.32-7.43) VBG pCO2 (40-60) VBG HCO3 (21-28) mmol/l VBG Total CO2 (22-28) mmol.L VBG O2 Sat (Calc) (40-65) % VBG Base Excess (0.0-2.0) mmol/L VBG Potassium (3.6-5.2) mmol/L Hgb O2 Saturation (95.0-98.0) % Sodium 149 H (132-148) mmol/L Chloride 122 H (98-107) mmol/L Glucose (75-110) mg/dl Lactate (0.7-2.1) mmol/L Mechanical Rate FiO2 % Tidal Volume PEEP Potassium 3.9 (3.6-5.0) mmol/L Carbon Dioxide 11 L (21-33) mmol/L Anion Gap 20 (10-20) BUN 7 (7-21) mg/dL Creatinine 0.6 L (0.8-1.5) mg/dl Est GFR ( Amer) > 60 Est GFR (Non-Af Amer) > 60 POC Glucose (mg/dL) (65-110) mg/dL Random Glucose 183 H (70-110) mg/dL Hemoglobin A1c 11.2 H (4.2-6.5) % Serum Osmolality (272-300) mosm/kg Calcium 7.8 L (8.4-10.5) mg/dL Phosphorus 1.7 L (2.5-4.5) mg/dL Magnesium 1.8 (1.7-2.2) mg/dL Total Bilirubin 0.5 (0.2-1.3) mg/dL AST 20 (17-59) U/L ALT 32 (7-56) U/L Alkaline Phosphatase 99 (38-126) U/L NT-Pro-B Natriuret Pep (0-450) pg/mL Total Protein 5.6 L (5.8-8.3) g/dL Albumin 3.1 (3.0-4.8) g/dL Globulin 2.4 gm/dL Albumin/Globulin Ratio 1.3 (1.1-1.8) Triglycerides 134 (35-160) mg/dL Cholesterol 141 (130-200) mg/dL LDL Cholesterol Direct 73 (0-129) mg/dL HDL Cholesterol 52 (29-60) mg/dL Amylase 274 H (35-125) U/L Lipase 634 H (23-300) U/L TSH 3rd Generation (0.46-4.68) mIU/mL Arterial Blood Potassium (3.6-5.2) mmol/L Venous Blood Potassium (3.6-5.2) mmol/L Urine Color (YELLOW) Urine Appearance (CLEAR) Urine pH (4.7-8.0) Ur Specific [place] (1.005-1.035) Urine Protein (<30 mg/dL) mg/dL Urine Glucose (UA) (NEGATIVE) mg/dL Urine Ketones (NEGATIVE) mg/dL Urine Blood (NEGATIVE) Urine Nitrate (NEGATIVE) Urine Bilirubin (NEGATIVE) Urine Urobilinogen (<1 E.U./dL) E.U./dL Ur Leukocyte Esterase (NEGATIVE) Fatimah/uL Urine RBC (0-2) /hpf Urine WBC (0-6) /hpf Ur Epithelial Cells (0-5) /hpf 04/01/18 04/01/18 04/01/18 Range/Units 03:03 02:24 02:15 WBC (4.5-11.0) 10^3/ul RBC (3.5-6.1) 10^6/uL Hgb (14.0-18.0) g/dL Hct (42.0-52.0) % MCV (80.0-105.0) fl MCH (25.0-35.0) pg MCHC (31.0-37.0) g/dl RDW (11.5-14.5) % Plt Count (120.0-450.0) 10^3/uL MPV (7.0-11.0) fl PT (9.4-12.5) SECONDS INR (0.93-1.08) APTT (25.1-36.5) Seconds pCO2 (35-45) mm/Hg pO2 (80-100) mm/Hg HCO3 ABG pH (7.35-7.45) ABG Total CO2 ABG O2 Saturation (95-98) % ABG O2 Content (15-23) ML/dl ABG Base Excess ABG Hemoglobin (11.7-17.4) g/dL ABG Carboxyhemoglobin (0.5-1.5) % POC ABG HHb (Measured) (0-5) % ABG Methemoglobin (0.0-3.0) % ABG O2 Capacity (16-24) mL/dl ABG Potassium (3.6-5.2) mmol/L VBG pH (7.32-7.43) VBG pCO2 (40-60) VBG HCO3 (21-28) mmol/l VBG Total CO2 (22-28) mmol.L VBG O2 Sat (Calc) (40-65) % VBG Base Excess (0.0-2.0) mmol/L VBG Potassium (3.6-5.2) mmol/L Hgb O2 Saturation (95.0-98.0) % Sodium 149 H (132-148) mmol/L Chloride 121 H (98-107) mmol/L Glucose (75-110) mg/dl Lactate (0.7-2.1) mmol/L Mechanical Rate FiO2 % Tidal Volume PEEP Potassium 3.6 (3.6-5.0) mmol/L Carbon Dioxide 13 L (21-33) mmol/L Anion Gap 19 (10-20) BUN 8 (7-21) mg/dL Creatinine 0.7 L (0.8-1.5) mg/dl Est GFR ( Amer) > 60 Est GFR (Non-Af Amer) > 60 POC Glucose (mg/dL) 111 H 117 H (65-110) mg/dL Random Glucose 131 H (70-110) mg/dL Hemoglobin A1c (4.2-6.5) % Serum Osmolality (272-300) mosm/kg Calcium 7.6 L (8.4-10.5) mg/dL Phosphorus 0.9 L* (2.5-4.5) mg/dL Magnesium 1.9 (1.7-2.2) mg/dL Total Bilirubin 0.5 (0.2-1.3) mg/dL AST 20 (17-59) U/L ALT 24 (7-56) U/L Alkaline Phosphatase 92 (38-126) U/L NT-Pro-B Natriuret Pep (0-450) pg/mL Total Protein 5.5 L (5.8-8.3) g/dL Albumin 3.1 (3.0-4.8) g/dL Globulin 2.4 gm/dL Albumin/Globulin Ratio 1.3 (1.1-1.8) Triglycerides (35-160) mg/dL Cholesterol (130-200) mg/dL LDL Cholesterol Direct (0-129) mg/dL HDL Cholesterol (29-60) mg/dL Amylase (35-125) U/L Lipase (23-300) U/L TSH 3rd Generation (0.46-4.68) mIU/mL Arterial Blood Potassium (3.6-5.2) mmol/L Venous Blood Potassium (3.6-5.2) mmol/L Urine Color (YELLOW) Urine Appearance (CLEAR) Urine pH (4.7-8.0) Ur Specific [place] (1.005-1.035) Urine Protein (<30 mg/dL) mg/dL Urine Glucose (UA) (NEGATIVE) mg/dL Urine Ketones (NEGATIVE) mg/dL Urine Blood (NEGATIVE) Urine Nitrate (NEGATIVE) Urine Bilirubin (NEGATIVE) Urine Urobilinogen (<1 E.U./dL) E.U./dL Ur Leukocyte Esterase (NEGATIVE) Fatimah/uL Urine RBC (0-2) /hpf Urine WBC (0-6) /hpf Ur Epithelial Cells (0-5) /hpf 04/01/18 04/01/18 04/01/18 Range/Units 01:36 01:03 00:55 WBC (4.5-11.0) 10^3/ul RBC (3.5-6.1) 10^6/uL Hgb (14.0-18.0) g/dL Hct (42.0-52.0) % MCV (80.0-105.0) fl MCH (25.0-35.0) pg MCHC (31.0-37.0) g/dl RDW (11.5-14.5) % Plt Count (120.0-450.0) 10^3/uL MPV (7.0-11.0) fl PT (9.4-12.5) SECONDS INR (0.93-1.08) APTT (25.1-36.5) Seconds pCO2 23 L (35-45) mm/Hg pO2 545.0 H (80-100) mm/Hg HCO3 11.3 L ABG pH 7.30 L (7.35-7.45) ABG Total CO2 12.0 L ABG O2 Saturation 99.8 H (95-98) % ABG O2 Content (15-23) ML/dl ABG Base Excess -13.1 L ABG Hemoglobin (11.7-17.4) g/dL ABG Carboxyhemoglobin (0.5-1.5) % POC ABG HHb (Measured) (0-5) % ABG Methemoglobin (0.0-3.0) % ABG O2 Capacity (16-24) mL/dl ABG Potassium 3.1 L (3.6-5.2) mmol/L VBG pH (7.32-7.43) VBG pCO2 (40-60) VBG HCO3 (21-28) mmol/l VBG Total CO2 (22-28) mmol.L VBG O2 Sat (Calc) (40-65) % VBG Base Excess (0.0-2.0) mmol/L VBG Potassium (3.6-5.2) mmol/L Hgb O2 Saturation (95.0-98.0) % Sodium Cancelled 146.0 (132-148) mmol/L Chloride Cancelled 125.0 H (98-107) mmol/L Glucose 145 H (75-110) mg/dl Lactate 1.1 (0.7-2.1) mmol/L Mechanical Rate 40 FiO2 100.0 % Tidal Volume PEEP 5 Potassium Cancelled (3.6-5.0) mmol/L Carbon Dioxide Cancelled (21-33) mmol/L Anion Gap Cancelled (10-20) BUN Cancelled (7-21) mg/dL Creatinine (0.8-1.5) mg/dl Est GFR ( Amer) Cancelled Est GFR (Non-Af Amer) Cancelled POC Glucose (mg/dL) 138 H (65-110) mg/dL Random Glucose Cancelled (70-110) mg/dL Hemoglobin A1c (4.2-6.5) % Serum Osmolality (272-300) mosm/kg Calcium Cancelled (8.4-10.5) mg/dL Phosphorus (2.5-4.5) mg/dL Magnesium (1.7-2.2) mg/dL Total Bilirubin (0.2-1.3) mg/dL AST (17-59) U/L ALT (7-56) U/L Alkaline Phosphatase (38-126) U/L NT-Pro-B Natriuret Pep 313 (0-450) pg/mL Total Protein (5.8-8.3) g/dL Albumin (3.0-4.8) g/dL Globulin gm/dL Albumin/Globulin Ratio (1.1-1.8) Triglycerides (35-160) mg/dL Cholesterol (130-200) mg/dL LDL Cholesterol Direct (0-129) mg/dL HDL Cholesterol (29-60) mg/dL Amylase (35-125) U/L Lipase (23-300) U/L TSH 3rd Generation (0.46-4.68) mIU/mL Arterial Blood Potassium 3.1 L (3.6-5.2) mmol/L Venous Blood Potassium (3.6-5.2) mmol/L Urine Color (YELLOW) Urine Appearance (CLEAR) Urine pH (4.7-8.0) Ur Specific [place] (1.005-1.035) Urine Protein (<30 mg/dL) mg/dL Urine Glucose (UA) (NEGATIVE) mg/dL Urine Ketones (NEGATIVE) mg/dL Urine Blood (NEGATIVE) Urine Nitrate (NEGATIVE) Urine Bilirubin (NEGATIVE) Urine Urobilinogen (<1 E.U./dL) E.U./dL Ur Leukocyte Esterase (NEGATIVE) Fatimah/uL Urine RBC (0-2) /hpf Urine WBC (0-6) /hpf Ur Epithelial Cells (0-5) /hpf 04/01/18 03/31/18 03/31/18 Range/Units 00:34 23:07 21:55 WBC (4.5-11.0) 10^3/ul RBC (3.5-6.1) 10^6/uL Hgb (14.0-18.0) g/dL Hct (42.0-52.0) % MCV (80.0-105.0) fl MCH (25.0-35.0) pg MCHC (31.0-37.0) g/dl RDW (11.5-14.5) % Plt Count (120.0-450.0) 10^3/uL MPV (7.0-11.0) fl PT (9.4-12.5) SECONDS INR (0.93-1.08) APTT (25.1-36.5) Seconds pCO2 (35-45) mm/Hg pO2 (80-100) mm/Hg HCO3 ABG pH (7.35-7.45) ABG Total CO2 ABG O2 Saturation (95-98) % ABG O2 Content (15-23) ML/dl ABG Base Excess ABG Hemoglobin (11.7-17.4) g/dL ABG Carboxyhemoglobin (0.5-1.5) % POC ABG HHb (Measured) (0-5) % ABG Methemoglobin (0.0-3.0) % ABG O2 Capacity (16-24) mL/dl ABG Potassium (3.6-5.2) mmol/L VBG pH (7.32-7.43) VBG pCO2 (40-60) VBG HCO3 (21-28) mmol/l VBG Total CO2 (22-28) mmol.L VBG O2 Sat (Calc) (40-65) % VBG Base Excess (0.0-2.0) mmol/L VBG Potassium (3.6-5.2) mmol/L Hgb O2 Saturation (95.0-98.0) % Sodium (132-148) mmol/L Chloride (98-107) mmol/L Glucose (75-110) mg/dl Lactate (0.7-2.1) mmol/L Mechanical Rate FiO2 % Tidal Volume PEEP Potassium (3.6-5.0) mmol/L Carbon Dioxide (21-33) mmol/L Anion Gap (10-20) BUN (7-21) mg/dL Creatinine (0.8-1.5) mg/dl Est GFR ( Amer) Est GFR (Non-Af Amer) POC Glucose (mg/dL) 149 H 256 H 182 H (65-110) mg/dL Random Glucose (70-110) mg/dL Hemoglobin A1c (4.2-6.5) % Serum Osmolality (272-300) mosm/kg Calcium (8.4-10.5) mg/dL Phosphorus (2.5-4.5) mg/dL Magnesium (1.7-2.2) mg/dL Total Bilirubin (0.2-1.3) mg/dL AST (17-59) U/L ALT (7-56) U/L Alkaline Phosphatase (38-126) U/L NT-Pro-B Natriuret Pep (0-450) pg/mL Total Protein (5.8-8.3) g/dL Albumin (3.0-4.8) g/dL Globulin gm/dL Albumin/Globulin Ratio (1.1-1.8) Triglycerides (35-160) mg/dL Cholesterol (130-200) mg/dL LDL Cholesterol Direct (0-129) mg/dL HDL Cholesterol (29-60) mg/dL Amylase (35-125) U/L Lipase (23-300) U/L TSH 3rd Generation (0.46-4.68) mIU/mL Arterial Blood Potassium (3.6-5.2) mmol/L Venous Blood Potassium (3.6-5.2) mmol/L Urine Color (YELLOW) Urine Appearance (CLEAR) Urine pH (4.7-8.0) Ur Specific [place] (1.005-1.035) Urine Protein (<30 mg/dL) mg/dL Urine Glucose (UA) (NEGATIVE) mg/dL Urine Ketones (NEGATIVE) mg/dL Urine Blood (NEGATIVE) Urine Nitrate (NEGATIVE) Urine Bilirubin (NEGATIVE) Urine Urobilinogen (<1 E.U./dL) E.U./dL Ur Leukocyte Esterase (NEGATIVE) Fatimah/uL Urine RBC (0-2) /hpf Urine WBC (0-6) /hpf Ur Epithelial Cells (0-5) /hpf 03/31/18 03/31/18 03/31/18 Range/Units 21:41 21:26 21:20 WBC (4.5-11.0) 10^3/ul RBC (3.5-6.1) 10^6/uL Hgb (14.0-18.0) g/dL Hct (42.0-52.0) % MCV (80.0-105.0) fl MCH (25.0-35.0) pg MCHC (31.0-37.0) g/dl RDW (11.5-14.5) % Plt Count (120.0-450.0) 10^3/uL MPV (7.0-11.0) fl PT 10.8 (9.4-12.5) SECONDS INR 0.95 (0.93-1.08) APTT 21.0 L (25.1-36.5) Seconds pCO2 17 L* (35-45) mm/Hg pO2 574.0 H (80-100) mm/Hg HCO3 5.0 L* ABG pH 7.08 L* (7.35-7.45) ABG Total CO2 5.5 L ABG O2 Saturation 100.0 H (95-98) % ABG O2 Content 19.3 (15-23) ML/dl ABG Base Excess -23.1 L ABG Hemoglobin 12.9 (11.7-17.4) g/dL ABG Carboxyhemoglobin 1.0 (0.5-1.5) % POC ABG HHb (Measured) 0 (0-5) % ABG Methemoglobin 1.2 (0.0-3.0) % ABG O2 Capacity 19.3 (16-24) mL/dl ABG Potassium (3.6-5.2) mmol/L VBG pH (7.32-7.43) VBG pCO2 (40-60) VBG HCO3 (21-28) mmol/l VBG Total CO2 (22-28) mmol.L VBG O2 Sat (Calc) (40-65) % VBG Base Excess (0.0-2.0) mmol/L VBG Potassium (3.6-5.2) mmol/L Hgb O2 Saturation 97.8 (95.0-98.0) % Sodium (132-148) mmol/L Chloride (98-107) mmol/L Glucose (75-110) mg/dl Lactate (0.7-2.1) mmol/L Mechanical Rate FiO2 100.0 % Tidal Volume PEEP Potassium (3.6-5.0) mmol/L Carbon Dioxide (21-33) mmol/L Anion Gap (10-20) BUN (7-21) mg/dL Creatinine (0.8-1.5) mg/dl Est GFR ( Amer) Est GFR (Non-Af Amer) POC Glucose (mg/dL) (65-110) mg/dL Random Glucose (70-110) mg/dL Hemoglobin A1c (4.2-6.5) % Serum Osmolality (272-300) mosm/kg Calcium (8.4-10.5) mg/dL Phosphorus (2.5-4.5) mg/dL Magnesium (1.7-2.2) mg/dL Total Bilirubin (0.2-1.3) mg/dL AST (17-59) U/L ALT (7-56) U/L Alkaline Phosphatase (38-126) U/L NT-Pro-B Natriuret Pep (0-450) pg/mL Total Protein (5.8-8.3) g/dL Albumin (3.0-4.8) g/dL Globulin gm/dL Albumin/Globulin Ratio (1.1-1.8) Triglycerides (35-160) mg/dL Cholesterol (130-200) mg/dL LDL Cholesterol Direct (0-129) mg/dL HDL Cholesterol (29-60) mg/dL Amylase (35-125) U/L Lipase (23-300) U/L TSH 3rd Generation (0.46-4.68) mIU/mL Arterial Blood Potassium (3.6-5.2) mmol/L Venous Blood Potassium (3.6-5.2) mmol/L Urine Color Yellow (YELLOW) Urine Appearance Clear (CLEAR) Urine pH 6.0 (4.7-8.0) Ur Specific [place] >= 1.030 (1.005-1.035) Urine Protein 30 H (<30 mg/dL) mg/dL Urine Glucose (UA) 250 H (NEGATIVE) mg/dL Urine Ketones >=80 (NEGATIVE) mg/dL Urine Blood Moderate H (NEGATIVE) Urine Nitrate Negative (NEGATIVE) Urine Bilirubin Negative (NEGATIVE) Urine Urobilinogen 0.2 (<1 E.U./dL) E.U./dL Ur Leukocyte Esterase Negative (NEGATIVE) Fatimah/uL Urine RBC 20 - 25 (0-2) /hpf Urine WBC 2 - 5 (0-6) /hpf Ur Epithelial Cells 6 - 8 (0-5) /hpf 03/31/18 03/31/18 03/31/18 Range/Units 21:20 21:20 20:58 WBC (4.5-11.0) 10^3/ul RBC (3.5-6.1) 10^6/uL Hgb (14.0-18.0) g/dL Hct (42.0-52.0) % MCV (80.0-105.0) fl MCH (25.0-35.0) pg MCHC (31.0-37.0) g/dl RDW (11.5-14.5) % Plt Count (120.0-450.0) 10^3/uL MPV (7.0-11.0) fl PT (9.4-12.5) SECONDS INR (0.93-1.08) APTT (25.1-36.5) Seconds pCO2 (35-45) mm/Hg pO2 43 (80-100) mm/Hg HCO3 ABG pH (7.35-7.45) ABG Total CO2 ABG O2 Saturation (95-98) % ABG O2 Content (15-23) ML/dl ABG Base Excess ABG Hemoglobin (11.7-17.4) g/dL ABG Carboxyhemoglobin (0.5-1.5) % POC ABG HHb (Measured) (0-5) % ABG Methemoglobin (0.0-3.0) % ABG O2 Capacity (16-24) mL/dl ABG Potassium (3.6-5.2) mmol/L VBG pH 7.03 L* (7.32-7.43) VBG pCO2 52.0 (40-60) VBG HCO3 13.7 L (21-28) mmol/l VBG Total CO2 15.3 L (22-28) mmol.L VBG O2 Sat (Calc) 87.7 H (40-65) % VBG Base Excess -17.1 L (0.0-2.0) mmol/L VBG Potassium 3.9 (3.6-5.2) mmol/L Hgb O2 Saturation (95.0-98.0) % Sodium 143.0 147 (132-148) mmol/L Chloride 110.0 H 111 H (98-107) mmol/L Glucose 590 H* D (75-110) mg/dl Lactate 1.5 (0.7-2.1) mmol/L Mechanical Rate FiO2 21.0 % Tidal Volume PEEP Potassium 4.0 (3.6-5.0) mmol/L Carbon Dioxide 12 L (21-33) mmol/L Anion Gap 28 H (10-20) BUN 9 (7-21) mg/dL Creatinine 0.7 L (0.8-1.5) mg/dl Est GFR ( Amer) > 60 Est GFR (Non-Af Amer) > 60 POC Glucose (mg/dL) 195 H (65-110) mg/dL Random Glucose 557 H* (70-110) mg/dL Hemoglobin A1c (4.2-6.5) % Serum Osmolality (272-300) mosm/kg Calcium 6.4 L* (8.4-10.5) mg/dL Phosphorus (2.5-4.5) mg/dL Magnesium (1.7-2.2) mg/dL Total Bilirubin (0.2-1.3) mg/dL AST (17-59) U/L ALT (7-56) U/L Alkaline Phosphatase (38-126) U/L NT-Pro-B Natriuret Pep (0-450) pg/mL Total Protein (5.8-8.3) g/dL Albumin (3.0-4.8) g/dL Globulin gm/dL Albumin/Globulin Ratio (1.1-1.8) Triglycerides (35-160) mg/dL Cholesterol (130-200) mg/dL LDL Cholesterol Direct (0-129) mg/dL HDL Cholesterol (29-60) mg/dL Amylase (35-125) U/L Lipase (23-300) U/L TSH 3rd Generation (0.46-4.68) mIU/mL Arterial Blood Potassium (3.6-5.2) mmol/L Venous Blood Potassium 3.9 (3.6-5.2) mmol/L Urine Color (YELLOW) Urine Appearance (CLEAR) Urine pH (4.7-8.0) Ur Specific [place] (1.005-1.035) Urine Protein (<30 mg/dL) mg/dL Urine Glucose (UA) (NEGATIVE) mg/dL Urine Ketones (NEGATIVE) mg/dL Urine Blood (NEGATIVE) Urine Nitrate (NEGATIVE) Urine Bilirubin (NEGATIVE) Urine Urobilinogen (<1 E.U./dL) E.U./dL Ur Leukocyte Esterase (NEGATIVE) Fatimah/uL Urine RBC (0-2) /hpf Urine WBC (0-6) /hpf Ur Epithelial Cells (0-5) /hpf 03/31/18 03/31/18 03/31/18 Range/Units 20:15 20:06 18:56 WBC (4.5-11.0) 10^3/ul RBC (3.5-6.1) 10^6/uL Hgb (14.0-18.0) g/dL Hct (42.0-52.0) % MCV (80.0-105.0) fl MCH (25.0-35.0) pg MCHC (31.0-37.0) g/dl RDW (11.5-14.5) % Plt Count (120.0-450.0) 10^3/uL MPV (7.0-11.0) fl PT (9.4-12.5) SECONDS INR (0.93-1.08) APTT (25.1-36.5) Seconds pCO2 19 L* (35-45) mm/Hg pO2 554.0 H (80-100) mm/Hg HCO3 TEST NOT PERFORMED ABG pH < 6.80 L* (7.35-7.45) ABG Total CO2 TEST NOT PERFORMED ABG O2 Saturation 100.8 H (95-98) % ABG O2 Content (15-23) ML/dl ABG Base Excess TEST NOT PERFORMED ABG Hemoglobin (11.7-17.4) g/dL ABG Carboxyhemoglobin (0.5-1.5) % POC ABG HHb (Measured) (0-5) % ABG Methemoglobin (0.0-3.0) % ABG O2 Capacity (16-24) mL/dl ABG Potassium 4.9 (3.6-5.2) mmol/L VBG pH (7.32-7.43) VBG pCO2 (40-60) VBG HCO3 (21-28) mmol/l VBG Total CO2 (22-28) mmol.L VBG O2 Sat (Calc) (40-65) % VBG Base Excess (0.0-2.0) mmol/L VBG Potassium (3.6-5.2) mmol/L Hgb O2 Saturation (95.0-98.0) % Sodium 140.0 (132-148) mmol/L Chloride 114.0 H (98-107) mmol/L Glucose 418 H* D (75-110) mg/dl Lactate 1.5 (0.7-2.1) mmol/L Mechanical Rate 30 FiO2 100.0 % Tidal Volume 420 PEEP Potassium (3.6-5.0) mmol/L Carbon Dioxide (21-33) mmol/L Anion Gap (10-20) BUN (7-21) mg/dL Creatinine (0.8-1.5) mg/dl Est GFR ( Amer) Est GFR (Non-Af Amer) POC Glucose (mg/dL) 241 H (65-110) mg/dL Random Glucose (70-110) mg/dL Hemoglobin A1c (4.2-6.5) % Serum Osmolality 330 H (272-300) mosm/kg Calcium (8.4-10.5) mg/dL Phosphorus (2.5-4.5) mg/dL Magnesium (1.7-2.2) mg/dL Total Bilirubin (0.2-1.3) mg/dL AST (17-59) U/L ALT (7-56) U/L Alkaline Phosphatase (38-126) U/L NT-Pro-B Natriuret Pep (0-450) pg/mL Total Protein (5.8-8.3) g/dL Albumin (3.0-4.8) g/dL Globulin gm/dL Albumin/Globulin Ratio (1.1-1.8) Triglycerides (35-160) mg/dL Cholesterol (130-200) mg/dL LDL Cholesterol Direct (0-129) mg/dL HDL Cholesterol (29-60) mg/dL Amylase (35-125) U/L Lipase (23-300) U/L TSH 3rd Generation (0.46-4.68) mIU/mL Arterial Blood Potassium 4.9 (3.6-5.2) mmol/L Venous Blood Potassium (3.6-5.2) mmol/L Urine Color (YELLOW) Urine Appearance (CLEAR) Urine pH (4.7-8.0) Ur Specific [place] (1.005-1.035) Urine Protein (<30 mg/dL) mg/dL Urine Glucose (UA) (NEGATIVE) mg/dL Urine Ketones (NEGATIVE) mg/dL Urine Blood (NEGATIVE) Urine Nitrate (NEGATIVE) Urine Bilirubin (NEGATIVE) Urine Urobilinogen (<1 E.U./dL) E.U./dL Ur Leukocyte Esterase (NEGATIVE) Fatimah/uL Urine RBC (0-2) /hpf Urine WBC (0-6) /hpf Ur Epithelial Cells (0-5) /hpf Laboratory Results - last 24 hr 03/31/18 03/31/18 03/31/18 18:56 20:06 20:15 WBC RBC Hgb Hct MCV MCH MCHC RDW Plt Count MPV PT INR APTT pCO2 19 L* pO2 554.0 H HCO3 TEST NOT PERFORMED ABG pH < 6.80 L* ABG Total CO2 TEST NOT PERFORMED ABG O2 Saturation 100.8 H ABG O2 Content ABG Base Excess TEST NOT PERFORMED ABG Hemoglobin ABG Carboxyhemoglobin POC ABG HHb (Measured) ABG Methemoglobin ABG O2 Capacity ABG Potassium 4.9 VBG pH VBG pCO2 VBG HCO3 VBG Total CO2 VBG O2 Sat (Calc) VBG Base Excess VBG Potassium Hgb O2 Saturation Sodium 140.0 Chloride 114.0 H Glucose 418 H* D Lactate 1.5 Mechanical Rate 30 FiO2 100.0 Tidal Volume 420 PEEP Potassium Carbon Dioxide Anion Gap BUN Creatinine Est GFR ( Amer) Est GFR (Non-Af Amer) POC Glucose (mg/dL) 241 H Random Glucose Hemoglobin A1c Serum Osmolality 330 H Calcium Phosphorus Magnesium Total Bilirubin AST ALT Alkaline Phosphatase NT-Pro-B Natriuret Pep Total Protein Albumin Globulin Albumin/Globulin Ratio Triglycerides Cholesterol LDL Cholesterol Direct HDL Cholesterol Amylase Lipase TSH 3rd Generation Arterial Blood Potassium 4.9 Venous Blood Potassium Urine Color Urine Appearance Urine pH Ur Specific [place] Urine Protein Urine Glucose (UA) Urine Ketones Urine Blood Urine Nitrate Urine Bilirubin Urine Urobilinogen Ur Leukocyte Esterase Urine RBC Urine WBC Ur Epithelial Cells 03/31/18 03/31/18 03/31/18 20:58 21:20 21:20 WBC RBC Hgb Hct MCV MCH MCHC RDW Plt Count MPV PT INR APTT pCO2 pO2 43 HCO3 ABG pH ABG Total CO2 ABG O2 Saturation ABG O2 Content ABG Base Excess ABG Hemoglobin ABG Carboxyhemoglobin POC ABG HHb (Measured) ABG Methemoglobin ABG O2 Capacity ABG Potassium VBG pH 7.03 L* VBG pCO2 52.0 VBG HCO3 13.7 L VBG Total CO2 15.3 L VBG O2 Sat (Calc) 87.7 H VBG Base Excess -17.1 L VBG Potassium 3.9 Hgb O2 Saturation Sodium 147 143.0 Chloride 111 H 110.0 H Glucose 590 H* D Lactate 1.5 Mechanical Rate FiO2 21.0 Tidal Volume PEEP Potassium 4.0 Carbon Dioxide 12 L Anion Gap 28 H BUN 9 Creatinine 0.7 L Est GFR ( Amer) > 60 Est GFR (Non-Af Amer) > 60 POC Glucose (mg/dL) 195 H Random Glucose 557 H* Hemoglobin A1c Serum Osmolality Calcium 6.4 L* Phosphorus Magnesium Total Bilirubin AST ALT Alkaline Phosphatase NT-Pro-B Natriuret Pep Total Protein Albumin Globulin Albumin/Globulin Ratio Triglycerides Cholesterol LDL Cholesterol Direct HDL Cholesterol Amylase Lipase TSH 3rd Generation Arterial Blood Potassium Venous Blood Potassium 3.9 Urine Color Urine Appearance Urine pH Ur Specific [place] Urine Protein Urine Glucose (UA) Urine Ketones Urine Blood Urine Nitrate Urine Bilirubin Urine Urobilinogen Ur Leukocyte Esterase Urine RBC Urine WBC Ur Epithelial Cells 03/31/18 03/31/18 03/31/18 21:20 21:26 21:41 WBC RBC Hgb Hct MCV MCH MCHC RDW Plt Count MPV PT 10.8 INR 0.95 APTT 21.0 L pCO2 17 L* pO2 574.0 H HCO3 5.0 L* ABG pH 7.08 L* ABG Total CO2 5.5 L ABG O2 Saturation 100.0 H ABG O2 Content 19.3 ABG Base Excess -23.1 L ABG Hemoglobin 12.9 ABG Carboxyhemoglobin 1.0 POC ABG HHb (Measured) 0 ABG Methemoglobin 1.2 ABG O2 Capacity 19.3 ABG Potassium VBG pH VBG pCO2 VBG HCO3 VBG Total CO2 VBG O2 Sat (Calc) VBG Base Excess VBG Potassium Hgb O2 Saturation 97.8 Sodium Chloride Glucose Lactate Mechanical Rate FiO2 100.0 Tidal Volume PEEP Potassium Carbon Dioxide Anion Gap BUN Creatinine Est GFR ( Amer) Est GFR (Non-Af Amer) POC Glucose (mg/dL) Random Glucose Hemoglobin A1c Serum Osmolality Calcium Phosphorus Magnesium Total Bilirubin AST ALT Alkaline Phosphatase NT-Pro-B Natriuret Pep Total Protein Albumin Globulin Albumin/Globulin Ratio Triglycerides Cholesterol LDL Cholesterol Direct HDL Cholesterol Amylase Lipase TSH 3rd Generation Arterial Blood Potassium Venous Blood Potassium Urine Color Yellow Urine Appearance Clear Urine pH 6.0 Ur Specific [place] >= 1.030 Urine Protein 30 H Urine Glucose (UA) 250 H Urine Ketones >=80 Urine Blood Moderate H Urine Nitrate Negative Urine Bilirubin Negative Urine Urobilinogen 0.2 Ur Leukocyte Esterase Negative Urine RBC 20 - 25 Urine WBC 2 - 5 Ur Epithelial Cells 6 - 8 03/31/18 03/31/18 04/01/18 21:55 23:07 00:34 WBC RBC Hgb Hct MCV MCH MCHC RDW Plt Count MPV PT INR APTT pCO2 pO2 HCO3 ABG pH ABG Total CO2 ABG O2 Saturation ABG O2 Content ABG Base Excess ABG Hemoglobin ABG Carboxyhemoglobin POC ABG HHb (Measured) ABG Methemoglobin ABG O2 Capacity ABG Potassium VBG pH VBG pCO2 VBG HCO3 VBG Total CO2 VBG O2 Sat (Calc) VBG Base Excess VBG Potassium Hgb O2 Saturation Sodium Chloride Glucose Lactate Mechanical Rate FiO2 Tidal Volume PEEP Potassium Carbon Dioxide Anion Gap BUN Creatinine Est GFR ( Amer) Est GFR (Non-Af Amer) POC Glucose (mg/dL) 182 H 256 H 149 H Random Glucose Hemoglobin A1c Serum Osmolality Calcium Phosphorus Magnesium Total Bilirubin AST ALT Alkaline Phosphatase NT-Pro-B Natriuret Pep Total Protein Albumin Globulin Albumin/Globulin Ratio Triglycerides Cholesterol LDL Cholesterol Direct HDL Cholesterol Amylase Lipase TSH 3rd Generation Arterial Blood Potassium Venous Blood Potassium Urine Color Urine Appearance Urine pH Ur Specific [place] Urine Protein Urine Glucose (UA) Urine Ketones Urine Blood Urine Nitrate Urine Bilirubin Urine Urobilinogen Ur Leukocyte Esterase Urine RBC Urine WBC Ur Epithelial Cells 04/01/18 04/01/18 04/01/18 00:55 01:03 01:36 WBC RBC Hgb Hct MCV MCH MCHC RDW Plt Count MPV PT INR APTT pCO2 23 L pO2 545.0 H HCO3 11.3 L ABG pH 7.30 L ABG Total CO2 12.0 L ABG O2 Saturation 99.8 H ABG O2 Content ABG Base Excess -13.1 L ABG Hemoglobin ABG Carboxyhemoglobin POC ABG HHb (Measured) ABG Methemoglobin ABG O2 Capacity ABG Potassium 3.1 L VBG pH VBG pCO2 VBG HCO3 VBG Total CO2 VBG O2 Sat (Calc) VBG Base Excess VBG Potassium Hgb O2 Saturation Sodium 146.0 Cancelled Chloride 125.0 H Cancelled Glucose 145 H Lactate 1.1 Mechanical Rate 40 FiO2 100.0 Tidal Volume PEEP 5 Potassium Cancelled Carbon Dioxide Cancelled Anion Gap Cancelled BUN Cancelled Creatinine Est GFR ( Amer) Cancelled Est GFR (Non-Af Amer) Cancelled POC Glucose (mg/dL) 138 H Random Glucose Cancelled Hemoglobin A1c Serum Osmolality Calcium Cancelled Phosphorus Magnesium Total Bilirubin AST ALT Alkaline Phosphatase NT-Pro-B Natriuret Pep 313 Total Protein Albumin Globulin Albumin/Globulin Ratio Triglycerides Cholesterol LDL Cholesterol Direct HDL Cholesterol Amylase Lipase TSH 3rd Generation Arterial Blood Potassium 3.1 L Venous Blood Potassium Urine Color Urine Appearance Urine pH Ur Specific [place] Urine Protein Urine Glucose (UA) Urine Ketones Urine Blood Urine Nitrate Urine Bilirubin Urine Urobilinogen Ur Leukocyte Esterase Urine RBC Urine WBC Ur Epithelial Cells 04/01/18 04/01/18 04/01/18 02:15 02:24 03:03 WBC RBC Hgb Hct MCV MCH MCHC RDW Plt Count MPV PT INR APTT pCO2 pO2 HCO3 ABG pH ABG Total CO2 ABG O2 Saturation ABG O2 Content ABG Base Excess ABG Hemoglobin ABG Carboxyhemoglobin POC ABG HHb (Measured) ABG Methemoglobin ABG O2 Capacity ABG Potassium VBG pH VBG pCO2 VBG HCO3 VBG Total CO2 VBG O2 Sat (Calc) VBG Base Excess VBG Potassium Hgb O2 Saturation Sodium 149 H Chloride 121 H Glucose Lactate Mechanical Rate FiO2 Tidal Volume PEEP Potassium 3.6 Carbon Dioxide 13 L Anion Gap 19 BUN 8 Creatinine 0.7 L Est GFR ( Amer) > 60 Est GFR (Non-Af Amer) > 60 POC Glucose (mg/dL) 117 H 111 H Random Glucose 131 H Hemoglobin A1c Serum Osmolality Calcium 7.6 L Phosphorus 0.9 L* Magnesium 1.9 Total Bilirubin 0.5 AST 20 ALT 24 Alkaline Phosphatase 92 NT-Pro-B Natriuret Pep Total Protein 5.5 L Albumin 3.1 Globulin 2.4 Albumin/Globulin Ratio 1.3 Triglycerides Cholesterol LDL Cholesterol Direct HDL Cholesterol Amylase Lipase TSH 3rd Generation Arterial Blood Potassium Venous Blood Potassium Urine Color Urine Appearance Urine pH Ur Specific [place] Urine Protein Urine Glucose (UA) Urine Ketones Urine Blood Urine Nitrate Urine Bilirubin Urine Urobilinogen Ur Leukocyte Esterase Urine RBC Urine WBC Ur Epithelial Cells 04/01/18 04/01/18 04/01/18 05:05 05:05 05:05 WBC 13.3 H D RBC 4.27 Hgb 12.2 L D Hct 35.6 L MCV 83.4 D MCH 28.6 MCHC 34.3 RDW 13.6 Plt Count 288 MPV 8.4 PT INR APTT pCO2 pO2 HCO3 ABG pH ABG Total CO2 ABG O2 Saturation ABG O2 Content ABG Base Excess ABG Hemoglobin ABG Carboxyhemoglobin POC ABG HHb (Measured) ABG Methemoglobin ABG O2 Capacity ABG Potassium VBG pH VBG pCO2 VBG HCO3 VBG Total CO2 VBG O2 Sat (Calc) VBG Base Excess VBG Potassium Hgb O2 Saturation Sodium 149 H Chloride 122 H Glucose Lactate Mechanical Rate FiO2 Tidal Volume PEEP Potassium 3.9 Carbon Dioxide 11 L Anion Gap 20 BUN 7 Creatinine 0.6 L Est GFR ( Amer) > 60 Est GFR (Non-Af Amer) > 60 POC Glucose (mg/dL) Random Glucose 183 H Hemoglobin A1c 11.2 H Serum Osmolality Calcium 7.8 L Phosphorus 1.7 L Magnesium 1.8 Total Bilirubin 0.5 AST 20 ALT 32 Alkaline Phosphatase 99 NT-Pro-B Natriuret Pep Total Protein 5.6 L Albumin 3.1 Globulin 2.4 Albumin/Globulin Ratio 1.3 Triglycerides 134 Cholesterol 141 LDL Cholesterol Direct 73 HDL Cholesterol 52 Amylase 274 H Lipase 634 H TSH 3rd Generation Arterial Blood Potassium Venous Blood Potassium Urine Color Urine Appearance Urine pH Ur Specific [place] Urine Protein Urine Glucose (UA) Urine Ketones Urine Blood Urine Nitrate Urine Bilirubin Urine Urobilinogen Ur Leukocyte Esterase Urine RBC Urine WBC Ur Epithelial Cells 04/01/18 04/01/18 04/01/18 05:05 05:20 06:10 WBC RBC Hgb Hct MCV MCH MCHC RDW Plt Count MPV PT 10.9 INR 0.95 APTT 24.1 L pCO2 17 L* pO2 257.0 H HCO3 7.1 L* ABG pH 7.23 L ABG Total CO2 7.6 L ABG O2 Saturation 100.0 H ABG O2 Content 13.7 L ABG Base Excess -18.5 L ABG Hemoglobin 9.5 L ABG Carboxyhemoglobin 1.3 POC ABG HHb (Measured) 0 ABG Methemoglobin 0.9 ABG O2 Capacity 13.7 L ABG Potassium VBG pH VBG pCO2 VBG HCO3 VBG Total CO2 VBG O2 Sat (Calc) VBG Base Excess VBG Potassium Hgb O2 Saturation 97.8 Sodium Chloride Glucose Lactate Mechanical Rate FiO2 100.0 Tidal Volume PEEP Potassium Carbon Dioxide Anion Gap BUN Creatinine Est GFR ( Amer) Est GFR (Non-Af Amer) POC Glucose (mg/dL) Random Glucose Hemoglobin A1c Serum Osmolality Calcium Phosphorus Magnesium Total Bilirubin AST ALT Alkaline Phosphatase NT-Pro-B Natriuret Pep Total Protein Albumin Globulin Albumin/Globulin Ratio Triglycerides Cholesterol LDL Cholesterol Direct HDL Cholesterol Amylase Lipase TSH 3rd Generation 0.79 Arterial Blood Potassium Venous Blood Potassium Urine Color Urine Appearance Urine pH Ur Specific [place] Urine Protein Urine Glucose (UA) Urine Ketones Urine Blood Urine Nitrate Urine Bilirubin Urine Urobilinogen Ur Leukocyte Esterase Urine RBC Urine WBC Ur Epithelial Cells 04/01/18 04/01/18 04/01/18 06:42 07:21 08:09 WBC RBC Hgb Hct MCV MCH MCHC RDW Plt Count MPV PT INR APTT pCO2 pO2 HCO3 ABG pH ABG Total CO2 ABG O2 Saturation ABG O2 Content ABG Base Excess ABG Hemoglobin ABG Carboxyhemoglobin POC ABG HHb (Measured) ABG Methemoglobin ABG O2 Capacity ABG Potassium VBG pH VBG pCO2 VBG HCO3 VBG Total CO2 VBG O2 Sat (Calc) VBG Base Excess VBG Potassium Hgb O2 Saturation Sodium Chloride Glucose Lactate Mechanical Rate FiO2 Tidal Volume PEEP Potassium Carbon Dioxide Anion Gap BUN Creatinine Est GFR ( Amer) Est GFR (Non-Af Amer) POC Glucose (mg/dL) 217 H 198 H 201 H Random Glucose Hemoglobin A1c Serum Osmolality Calcium Phosphorus Magnesium Total Bilirubin AST ALT Alkaline Phosphatase NT-Pro-B Natriuret Pep Total Protein Albumin Globulin Albumin/Globulin Ratio Triglycerides Cholesterol LDL Cholesterol Direct HDL Cholesterol Amylase Lipase TSH 3rd Generation Arterial Blood Potassium Venous Blood Potassium Urine Color Urine Appearance Urine pH Ur Specific [place] Urine Protein Urine Glucose (UA) Urine Ketones Urine Blood Urine Nitrate Urine Bilirubin Urine Urobilinogen Ur Leukocyte Esterase Urine RBC Urine WBC Ur Epithelial Cells 07/04/18 07/04/18 07/04/18 08:55 09:58 10:20 WBC RBC Hgb Hct MCV MCH MCHC RDW Plt Count MPV PT INR APTT pCO2 pO2 HCO3 ABG pH ABG Total CO2 ABG O2 Saturation ABG O2 Content ABG Base Excess ABG Hemoglobin ABG Carboxyhemoglobin POC ABG HHb (Measured) ABG Methemoglobin ABG O2 Capacity ABG Potassium VBG pH VBG pCO2 VBG HCO3 VBG Total CO2 VBG O2 Sat (Calc) VBG Base Excess VBG Potassium Hgb O2 Saturation Sodium 150 H Chloride 120 H Glucose Lactate Mechanical Rate FiO2 Tidal Volume PEEP Potassium 4.2 Carbon Dioxide 14 L Anion Gap 19 BUN 5 L Creatinine 0.5 L Est GFR ( Amer) > 60 Est GFR (Non-Af Amer) > 60 POC Glucose (mg/dL) 194 H 159 H Random Glucose 162 H Hemoglobin A1c Serum Osmolality Calcium 8.1 L Phosphorus Magnesium Total Bilirubin AST ALT Alkaline Phosphatase NT-Pro-B Natriuret Pep Total Protein Albumin Globulin Albumin/Globulin Ratio Triglycerides Cholesterol LDL Cholesterol Direct HDL Cholesterol Amylase Lipase TSH 3rd Generation Arterial Blood Potassium Venous Blood Potassium Urine Color Urine Appearance Urine pH Ur Specific [place] Urine Protein Urine Glucose (UA) Urine Ketones Urine Blood Urine Nitrate Urine Bilirubin Urine Urobilinogen Ur Leukocyte Esterase Urine RBC Urine WBC Ur Epithelial Cells 04/01/18 04/01/18 04/01/18 10:20 11:09 12:50 WBC RBC Hgb Hct MCV MCH MCHC RDW Plt Count MPV PT INR APTT pCO2 pO2 HCO3 ABG pH ABG Total CO2 ABG O2 Saturation ABG O2 Content ABG Base Excess ABG Hemoglobin ABG Carboxyhemoglobin POC ABG HHb (Measured) ABG Methemoglobin ABG O2 Capacity ABG Potassium VBG pH VBG pCO2 VBG HCO3 VBG Total CO2 VBG O2 Sat (Calc) VBG Base Excess VBG Potassium Hgb O2 Saturation Sodium 148 Chloride 119 H Glucose Lactate Mechanical Rate FiO2 Tidal Volume PEEP Potassium 3.4 L Carbon Dioxide 19 L Anion Gap 15 BUN 4 L Creatinine 0.5 L Est GFR ( Amer) > 60 Est GFR (Non-Af Amer) > 60 POC Glucose (mg/dL) 154 H Random Glucose 144 H Hemoglobin A1c Serum Osmolality Calcium 7.9 L Phosphorus Magnesium Total Bilirubin AST ALT Alkaline Phosphatase NT-Pro-B Natriuret Pep Total Protein Albumin Globulin Albumin/Globulin Ratio Triglycerides Cholesterol LDL Cholesterol Direct HDL Cholesterol Amylase Lipase 273 TSH 3rd Generation Arterial Blood Potassium Venous Blood Potassium Urine Color Urine Appearance Urine pH Ur Specific [place] Urine Protein Urine Glucose (UA) Urine Ketones Urine Blood Urine Nitrate Urine Bilirubin Urine Urobilinogen Ur Leukocyte Esterase Urine RBC Urine WBC Ur Epithelial Cells 04/01/18 04/01/18 04/01/18 14:12 14:57 16:03 WBC RBC Hgb Hct MCV MCH MCHC RDW Plt Count MPV PT INR APTT pCO2 pO2 HCO3 ABG pH ABG Total CO2 ABG O2 Saturation ABG O2 Content ABG Base Excess ABG Hemoglobin ABG Carboxyhemoglobin POC ABG HHb (Measured) ABG Methemoglobin ABG O2 Capacity ABG Potassium VBG pH VBG pCO2 VBG HCO3 VBG Total CO2 VBG O2 Sat (Calc) VBG Base Excess VBG Potassium Hgb O2 Saturation Sodium Chloride Glucose Lactate Mechanical Rate FiO2 Tidal Volume PEEP Potassium Carbon Dioxide Anion Gap BUN Creatinine Est GFR ( Amer) Est GFR (Non-Af Amer) POC Glucose (mg/dL) 113 H 126 H 135 H Random Glucose Hemoglobin A1c Serum Osmolality Calcium Phosphorus Magnesium Total Bilirubin AST ALT Alkaline Phosphatase NT-Pro-B Natriuret Pep Total Protein Albumin Globulin Albumin/Globulin Ratio Triglycerides Cholesterol LDL Cholesterol Direct HDL Cholesterol Amylase Lipase TSH 3rd Generation Arterial Blood Potassium Venous Blood Potassium Urine Color Urine Appearance Urine pH Ur Specific [place] Urine Protein Urine Glucose (UA) Urine Ketones Urine Blood Urine Nitrate Urine Bilirubin Urine Urobilinogen Ur Leukocyte Esterase Urine RBC Urine WBC Ur Epithelial Cells Critical Care Progress Note - Nutrition Nutrition: Nutrition Category Date Time Status NPO Diet [DIET] Diets 03/31/18 Dinner Ordered Attending/Attestation - Attestation I have personally seen and examined this patient.: Yes I have fully participated in the care of the patient.: Yes I have reviewed all pertinent clinical information: Yes Notes (Text): 04/01/18 16:[address] Morley note
--- NOTE | 2018-04-01 11:51 | RAD ---
HISTORY: eval COMPARISON: 03/31/2018 FINDINGS: LUNGS: No active pulmonary disease. PLEURA: No significant pleural effusion identified, no pneumothorax apparent. CARDIOVASCULAR: Normal. OSSEOUS STRUCTURES: No significant abnormalities. VISUALIZED UPPER ABDOMEN: Normal. OTHER FINDINGS: Stable position of support apparatus including endotracheal tube and nasogastric tube. IMPRESSION: No active disease. No significant interval change compared to the prior examination(s).
[2018-04-01] MEDS: Insulin Regular 100 UNITS in Sodium Chloride 0.9% 99 ML IV PRN (13:01)
--- NOTE | 2018-04-01 13:41 | CP.PCM.PN ---
<Keith Shaffer - Last Filed: 04/01/18 13:28> Subjective - Date & Time of Evaluation Date of Evaluation: 04/01/18 Time of Evaluation: 13:41 - Subjective Subjective: Medicine progress note: DO Deena PGY-2 Patient seen and examined at bedside. Patient is intubated and sedated, history is limited. Patient does keep waking up from sedation. Objective - Vital Signs/Intake and Output Vital Signs (last 24 hours): Temp Pulse Resp BP Pulse Ox 98.1 F 121 H 26 H 139/74 100 04/01/18 07:00 04/01/18 07:00 04/01/18 07:15 04/01/18 07:00 04/01/18 07:15 Intake and Output: 04/01/18 04/01/18 06:59 18:59 Intake Total 199 300 Balance 199 300 - Medications Medications: Current Medications Heparin Sodium (Porcine) (Heparin) 5,000 units SC Q8 WILIAN PRN Reason: Protocol Last Admin: 04/01/18 13:03 Dose: 5,000 units Insulin Human Regular 100 (units/ Sodium Chloride) 100 mls @ 3 mls/hr IV .Q24H PRN; Protocol; 3 UNITS/HR PRN Reason: TITRATE PER MD ORDER Last Admin: 04/01/18 13:01 Dose: 1.5 units/hr, 1.5 mls/hr Midazolam 100 mg/100ml in NS (Midazolam 100 Mg/100ml In Ns) 100 mg in 100 mls @ 1 mls/hr IV .Q24H PRN; Protocol; 1 MG/HR PRN Reason: Sedation Last Titration: 04/01/18 05:26 Dose: 8 mg/hr, 8 mls/hr Meropenem (Merrem Iv 1 Gm Premix) 50 mls @ 100 mls/hr IVPB Q8 WILIAN PRN Reason: Protocol Stop: 04/10/18 06:01 Last Admin: 04/01/18 13:05 Dose: 100 mls/hr Vancomycin HCl (Vancomycin 1gm) 1 gm in 250 mls @ 167 mls/hr IVPB Q12 WILIAN PRN Reason: Protocol Last Admin: 04/01/18 09:14 Dose: 167 mls/hr Propofol (Diprivan) 1,000 mg in 100 mls @ 2.245 mls/hr IV .Q24H PRN; Protocol; 5 MCG/KG/MIN PRN Reason: TITRATE PER MD ORDER Last Admin: 04/01/18 09:23 Dose: 50 mcg/kg/min, 22.453 mls/hr Acetaminophen (Ofirmev) 1,000 mg in 100 mls @ 400 mls/hr IVPB Q6H PRN PRN Reason: Temperature Stop: 04/03/18 01:31 Last Admin: 04/01/18 02:06 Dose: 400 mls/hr Sodium Bicarbonate 150 meq/ (Dextrose) 1,150 mls @ 150 mls/hr IV .Q7H40M [facility] Last Admin: 04/01/18 09:27 Dose: 150 mls/hr Dexmedetomidine HCl (Precedex 400mcg/100ml) 400 mcg in 100 mls @ 3.361 mls/hr IV .Q24H PRN; Protocol; 0.2 MCG/KG/HR PRN Reason: Agitation Last Admin: 04/01/18 10:47 Dose: 0.2 mcg/kg/hr, 3.361 mls/hr Pantoprazole Sodium (Protonix Inj) 40 mg IVP DAILY [facility] [place] Last Admin: 04/01/18 09:06 Dose: 40 mg - Labs Labs: 04/01/18 05:05 04/01/18 10:20 PT 10.9 SECONDS (9.4-12.5) 04/01/18 05:20 INR 0.95 (0.93-1.08) 04/01/18 05:20 APTT 24.1 Seconds (25.1-36.5) L 04/01/18 05:20 - Constitutional Appears: Well - Head Exam Head Exam: ATRAUMATIC, NORMAL INSPECTION, NORMOCEPHALIC - Eye Exam Eye Exam: EOMI, Normal appearance, PERRL Pupil Exam: NORMAL ACCOMODATION, PERRL - ENT Exam ENT Exam: Mucous Membranes Moist, Normal Exam - Neck Exam Neck Exam: Full ROM, Normal Inspection. absent: Lymphadenopathy - Respiratory Exam Respiratory Exam: Clear to Ausculation Bilateral, NORMAL BREATHING PATTERN - Cardiovascular Exam Cardiovascular Exam: REGULAR RHYTHM, +S1, +S2. absent: Murmur - GI/Abdominal Exam GI & Abdominal Exam: Soft, Normal Bowel Sounds. absent: Tenderness - Extremities Exam Extremities Exam: Full ROM, Normal Capillary Refill, Normal Inspection. absent : Joint Swelling, Pedal Edema - Back Exam Back Exam: NORMAL INSPECTION - Neurological Exam Neurological Exam: Alert, Awake, CN II-XII Intact, Normal Gait, Oriented x3 - Psychiatric Exam Psychiatric exam: Normal Affect, Normal Mood - Skin Skin Exam: Dry, Intact, Normal Color, Warm Assessment and Plan - Assessment and Plan (Free Text) Assessment: 27 year old male with past medical history of DM type 1, medical non-compliance , and recent AMA from hospital admission for DKA. Patient evaluated in ED and found to have elevated lactate, leukocytosis for which Code spesis was called. Patient also noted to have elevated anion gap of 35, kussmal breathing, bg of 551. Pt intubated and sedated and placed on insulin drip and transferred to ICU. Today (04/01), patient's leukocytosis is resolving and AG is closing. Patient's vent mode changed to CPAP. Patient was started on bicarb drip this morning. Current sepsis work up that has resulted is UA, which was negative. Plan: Diabetic Ketoacidosis in setting of DM1 - Etiology: Infectious vs. Dehydration vs. Medical noncompliance vs. Substance abuse - Monitor BMP q4 for AG, accuchecks - Monitor and replace electrolytes as needed - Insulin drip 4 units/hr initial, titrate according to AG; Bicarb drip - IVF - 3 Liters with 150mEq NaHCO3 in ED - 3 more liters of NS to follow - Continue to monitor as AG closes and with monitoring of blood glucose - Endocrinology consultation: Dr. Severino Acute Respiratory Failure - Propofol drip and intubated, pressure support - Ventilator settings as per ICU SIRS likely 2/2 DKA - Blood, urine culture, procalcitonin ordered; HIV ordered - Patient given IVF, 3 Liters in ED and started on Meropenem and Vancomycin - Patient BP stable, tachycardic, and afebrile Leukocytosis - 26.8 on admission with DKA - Blood, urine culture, procal - Monitor with CBC GI/DVT ppx - Protonix, NPO - Heparin 5000 U SQ <Chris Trevino - Last Filed: 04/01/18 14:45> Objective - Vital Signs/Intake and Output Vital Signs (last 24 hours): Temp Pulse Resp BP Pulse Ox 98.1 F 121 H 26 H 139/74 100 04/01/18 07:00 04/01/18 07:00 04/01/18 07:15 04/01/18 07:00 04/01/18 07:15 Intake and Output: 04/01/18 04/01/18 06:59 18:59 Intake Total 199 428 Balance 199 428 - Medications Medications: Current Medications Heparin Sodium (Porcine) (Heparin) 5,000 units SC Q8 WILIAN PRN Reason: Protocol Last Admin: 04/01/18 13:03 Dose: 5,000 units Insulin Human Regular 100 (units/ Sodium Chloride) 100 mls @ 3 mls/hr IV .Q24H PRN; Protocol; 3 UNITS/HR PRN Reason: TITRATE PER MD ORDER Last Admin: 04/01/18 13:01 Dose: 1.5 units/hr, 1.5 mls/hr Midazolam 100 mg/100ml in NS (Midazolam 100 Mg/100ml In Ns) 100 mg in 100 mls @ 1 mls/hr IV .Q24H PRN; Protocol; 1 MG/HR PRN Reason: Sedation Last Titration: 04/01/18 08:00 Dose: 0 mg/hr, 0 mls/hr Meropenem (Merrem Iv 1 Gm Premix) 50 mls @ 100 mls/hr IVPB Q8 WILIAN PRN Reason: Protocol Stop: 04/10/18 06:01 Last Admin: 04/01/18 13:05 Dose: 100 mls/hr Vancomycin HCl (Vancomycin 1gm) 1 gm in 250 mls @ 167 mls/hr IVPB Q12 WILIAN PRN Reason: Protocol Last Admin: 04/01/18 09:14 Dose: 167 mls/hr Propofol (Diprivan) 1,000 mg in 100 mls @ 2.245 mls/hr IV .Q24H PRN; Protocol; 5 MCG/KG/MIN PRN Reason: TITRATE PER MD ORDER Last Titration: 04/01/18 13:30 Dose: 40 mcg/kg/min, 17.962 mls/hr Acetaminophen (Ofirmev) 1,000 mg in 100 mls @ 400 mls/hr IVPB Q6H PRN PRN Reason: Temperature Stop: 04/03/18 01:31 Last Admin: 04/01/18 02:06 Dose: 400 mls/hr Sodium Bicarbonate 150 meq/ (Dextrose) 1,150 mls @ 150 mls/hr IV .Q7H40M [facility] Last Admin: 04/01/18 09:27 Dose: 150 mls/hr Dexmedetomidine HCl (Precedex 400mcg/100ml) 400 mcg in 100 mls @ 3.361 mls/hr IV .Q24H PRN; Protocol; 0.2 MCG/KG/HR PRN Reason: Agitation Last Titration: 04/01/18 13:30 Dose: 0.6 mcg/kg/hr, 10.083 mls/hr Pantoprazole Sodium (Protonix Inj) 40 mg IVP DAILY [facility] [place] Last Admin: 04/01/18 09:06 Dose: 40 mg - Labs Labs: 04/01/18 05:05 04/01/18 12:50 PT 10.9 SECONDS (9.4-12.5) 04/01/18 05:20 INR 0.95 (0.93-1.08) 04/01/18 05:20 APTT 24.1 Seconds (25.1-36.5) L 04/01/18 05:20 Attending/Attestation - Attestation I have personally seen and examined this patient.: Yes I have fully participated in the care of the patient.: Yes I have reviewed all pertinent clinical information, including history, physical exam and plan: Yes Notes (Text): 04/01/18 14:41 27 year old male with past medical history of diabetes, medication noncompliance who presented with DKA. He was also found to have SIR with leukocytosis, lactic / metabolic acidosis. He is on insulin drip and bicarb. Will continue to trend serial BMP to monitor anion gap. Continue with broad spectrum antibiotics while awaiting cultures. Leukocytosis is improving. Continue with vent management as per science liaison. Chris Trevino MD Hospitalist.
[2018-04-01 14:06] LABS: BLOOD UREA NITROGEN 4 mg/dL (7-21); CALCIUM 7.9 mg/dL (8.4-10.5); GFR AFRICAN-AMERICAN > 60; GFR NON-AFRICAN AMERICAN > 60
--- NOTE | 2018-04-01 14:27 | PN ---
DATE: 04/01/2018 SUBJECTIVE: The patient was seen and examined at bedside. He is sedated with propofol 50 mcg/kg per minute and will be started on Precedex with the goal of weaning him off propofol. He is on pressure support 5/5 with FiO2 50%. He tolerated it well with rapid shallow breathing index of 53. PHYSICAL EXAMINATION: VITAL SIGNS: Heart rate 115, oxygen saturation 99%, blood pressure 138/76, temperature 100.2, end-tidal CO2 on the monitor 27, respiratory rate 24. ENT: Head and neck atraumatic. LUNGS: Clear to auscultation bilaterally. HEART: Regular rhythm and rate. S1, S2 normal. ABDOMEN: Soft, nontender, nondistended. MUSCULOSKELETAL: No C/C/E. NEUROLOGICAL: The patient moves all extremities spontaneously. SKIN: Moist. PSYCHIATRIC: The patient is sedated. LABORATORY DATA: WBC of 13.3, hemoglobin 12.2, platelet count 288. Sodium 149, potassium 3.9, chloride 122, carbon dioxide 11, BUN 7, creatinine 0.6, glucose 194. Amylase 274 and lipase 634. TSH 0.79, albumin 3.1. MEDICATIONS: Tylenol IV, heparin subcu, insulin drip, meropenem, Protonix, propofol drip, bicarb drip, vancomycin. ASSESSMENT: This is a 27-year-old gentleman who presented with diabetic ketoacidosis with severe lactic acidosis and inability to compensate for it. The patient was intubated and started on bicarb drip with substantial improvement in his pH and glucose control. His anion gap is still elevated at 15 and we will continue with insulin drip. We will continue with BMP every 4 hours, Accu-Chek every 1 hour. His IV fluids were switched to D5 containing fluids (bicarb). We will try to avoid chloride containing fluid to add nephro-protective effect. We will trend lipase and amylase. The patient is on meropenem and if lipase will not trend down, we will get CT of the abdomen and pelvis to rule out necrotizing pancreatitis. Meanwhile,we will continue with pressure support mode of ventilation. We will repeat ABG in the afternoon to follow up on pH. We will start the patient on Precedex and we will try to wean off propofol. Renal schmid, we will maintain mean arterial pressure more than 65, avoid hyperchloremia and nephrotoxins and we will treat underlying disease. We will continue with IV fluids. ID schmid, the patient is on broad-spectrum antibiotics; if will not improve within next 24 hours in terms of leukocytosis and fever, we will get CT of the abdomen and pelvis. Meanwhile, the patient is on meropenem and ID service is following him. GI schmid, the patient is n.p.o. and on GI prophylaxis. We will continue with head of bed elevated at >35 degrees and oral hygiene. Endocrine schmid, we will continue with insulin drip until anion gap closes. We will continue with DVT, GI prophylaxes. ccm time 40 min Christo Morley MD MTDD
[2018-04-01] MEDS: Insulin Lispro (humaLOG) MEDIUM Coverage SC SCH ×2 (16:41→19:59)
[2018-04-01] MEDS: Insulin Detemir 100 units/ml Vial (Levemir) SC SCH (16:42)
[2018-04-01 17:07] LABS: ARTERIAL BLOOD GAS HCO3 21.1 mmol/L (21-28); ARTERIAL BLOOD GAS O2 SAT 99.1 % (95-98); ARTERIAL BLOOD GAS PCO2 34 mm/Hg (35-45); ARTERIAL BLOOD GAS TCO2 22.1 mmol.L (22-28)
[2018-04-01 17:38] LABS: BLOOD UREA NITROGEN 4 mg/dL (7-21); CALCIUM 8.1 mg/dL (8.4-10.5); GFR AFRICAN-AMERICAN > 60; GFR NON-AFRICAN AMERICAN > 60
--- NOTE | 2018-04-01 19:16 | CON ---
DATE: 04/01/2018 LOCATION: The patient was seen early this morning in 129, bed 3 and the patient is intubated on a ventilator. HISTORY OF PRESENT ILLNESS: This is a 27-year-old male who has history of diabetes mellitus with history of diabetic ketoacidosis, high cholesterol, recently signed AMA, now returned to the Emergency Room and was seen by Dr. Karthik Smith in the Emergency Room. The patient is noncompliant to his medication, was short of breath and minimally responsive and now intubated on a ventilator. REVIEW OF SYSTEMS: Reveals there was fever earlier and there was shortness of breath, requiring intubation. There has been no abdominal pain, diarrhea, constipation, or bright red blood per rectum. PAST MEDICAL HISTORY: Significant for diabetes mellitus, high cholesterol, and diabetic ketoacidosis. PAST SURGICAL HISTORY: Noncontributory. ALLERGIES: THE PATIENT HAS NO KNOWN ALLERGIES. MEDICATIONS AT HOME: Reveals the patient to be on Crestor and insulin. PHYSICAL EXAMINATION: VITAL SIGNS: On exam, the patient is intubated on the ventilator with a temperature of 100.6, heart rate of 120, respiratory rate on the vent, blood pressure is 139/70, and saturation is noted. HEENT: Reveals ET tube in place. NECK: Supple. LUNGS: Have decreased breath sounds. HEART: Normal S1, S2. ABDOMEN: Soft, nontender. No rebound. No guarding. No masses. LABORATORY DATA: Reveals white count of 26,800, which has come down to 13,300 today with a hemoglobin of 16, platelets of 505, 85% granulocytosis. Coagulation is noted. Chemistries reveals a BUN of 7, creatinine of 0.6. Amylase and lipase are elevated. Lipase is 634. Urinalysis shows 2-5 wbc's. Microbiology is pending. The patient's chest x-ray is reported to be negative and no active disease. Dr. Giuliano Roberson's note is reviewed. ASSESSMENT AND PLAN: This is a 27-year-old male, diabetic with diabetic ketoacidosis, recently he signed against medical advice, high cholesterol, admitted with shortness of breath. Respiratory failure, intubated on the ventilator with systemic inflammatory response syndrome. Thus far, no evidence of a clear infection. We will check on the blood cultures, urine cultures, and procalcitonin and empirically start the patient on vancomycin and meropenem pending pancultures and initial workup results and follow closely with you. Antonio Mclean MD
[2018-04-01] MEDS: Lactated Ringer's 1,000 ML IV SCH (20:35)
[2018-04-01 21:54] LABS: BLOOD UREA NITROGEN 4 mg/dL (7-21); CALCIUM 8.2 mg/dL (8.4-10.5); GFR AFRICAN-AMERICAN > 60; GFR NON-AFRICAN AMERICAN > 60
--- NOTE | 2018-04-01 23:47 | CON ---
DATE: 04/01/2018 ENDOCRINOLOGY CONSULTATION LOCATION: [facility]U 129, room 3. HISTORY OF PRESENT ILLNESS: This is a 27-year-old male with known history of type 1 insulin-dependent diabetes with very poor adherence to his insulin regimen and presents here with progressive generalized weakness and shortness of breath and was found to be in overt diabetic ketoacidosis and dehydration and currently admitted to ICU as noted. He was prophylactically intubated and sedated at this time. PAST MEDICAL HISTORY: As mentioned above, history of type 1 insulin-dependent diabetes and has actually been using his father's insulin because of financial and insurance constraints and lack of medical insurance. FAMILY HISTORY: Positive for diabetes with his father also being a type 1 diabetic, on insulin. 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 REVIEW OF SYSTEMS: As mentioned above, told by the family to have increasing generalized body weakness with hypersomnolence and lethargy with progressive shortness of breath as noted. He also admits to have progressive bouts of dizziness and lightheadedness worse on the day of admission. No chest pains, but was found to have progressive shortness of breath especially on exertion. His oral intake has been variable and nil with nausea, dyspepsia, and intractable vomiting episodes. He also had recent marked polyuria, nocturia, and polydipsia as noted. PHYSICAL EXAMINATION: GENERAL: This is an average built male, in no apparent distress with a blood pressure of 140/80, pulse of 70 beats per minute regular, temperature 98, respirations as per ventilator parameters. Height is 5 feet 5 inches, weight is 148 pounds. HEENT: Head: Normocephalic. Eyes: Anicteric with pink conjunctivae. Funduscopy not possible at this time. Ears, nose, and throat: Otherwise normal. NECK: Supple. Thyroid gland is normal in size. No carotid bruits, nor any cervical adenopathy. HEART: Adynamic precordium. S1, S2 is rapid and regular. LUNGS: Clear to auscultation. ABDOMEN: Flat, soft with positive bowel sounds. EXTREMITIES: No peripheral edema. Pulses are +2 bilaterally. LABORATORIES DATA: Chemistry shows a BUN of 5, sodium 150, potassium 4.2, chloride 120, CO2 is 14, glucose is 162, and creatinine is 0.5. The initial CO2 was 12 with a glucose of 557. ASSESSMENT: This is a 27-year-old male with uncontrolled and decompensated type 1 insulin-dependent diabetes presenting here with diabetic ketoacidosis and dehydration and is currently endotracheally intubated and sedated at this time. He has very poor adherence and compliance to his insulin regimen with the lack of medical insurance and has been using his father's insulin doses p.r.n. as noted. PLAN OF MANAGEMENT: We will concur with the present pills, medical management, and hemodynamic monitoring in the ICU as noted. We will concur also with the use of the insulin drip infusion for now until CO2 is at least above 18 to 20 before switching him to a more physiologic basal and bolus insulin regimen as he is extubated. We will continue the vigorous IV hydration with normal saline infusion as ordered and we will obtain serial chemistries and supplement accordingly as needed. Hemoglobin A1c and thyroid studies will be ordered if not already done. We will switch him over to a more affordable conventional insulin such as regular insulin and NPH at bedtime prior to his discharge. We will follow this. Dede Severino MD
[2018-04-02] MEDS ORDERED: Dextrose 50% SYRINGE Inj (50 ml) ONE (04:33)
[2018-04-02] MEDS: Insulin Lispro (humaLOG) MEDIUM Coverage SC SCH ×3 (04:52→08:35)
[2018-04-02] MEDS: Meropenem IV 1 gm in NS 50 ML IVPB SCH (06:07)
[2018-04-02] MEDS: Lactated Ringer's 1,000 ML IV SCH (06:07)
[2018-04-02] MEDS: Dexmedetomidine 400mcg/100mL 400 MCG/100 ML BOTTLE IV PRN (06:08)
[2018-04-02 06:25] LABS: HEMOGLOBIN 11.7 g/dL (14.0-18.0); MEAN CELL VOLUME 82.4 fl (80.0-105.0); MEAN CORPUSCULAR HEMOGLOBIN 28.7 pg (25.0-35.0); MEAN CORPUSCULAR HGB CONC 34.8 g/dl (31.0-37.0); MEAN PLATELET VOLUME 8.5 fl (7.0-11.0); RBC 4.08 10^6/uL (3.5-6.1); RED CELL DISTRIBUTION WIDTH 13.7 % (11.5-14.5)
[2018-04-02 06:39] LABS: ARTERIAL BLOOD GAS HCO3 20.8 mmol/L (21-28); ARTERIAL BLOOD GAS HEMOGLOBIN 17.7 g/dL (11.7-17.4); ARTERIAL BLOOD GAS O2 CAPACITY 24.5 mL/dl (16-24); ARTERIAL BLOOD GAS O2 CONTENT 24.3 ML/dl (15-23); ARTERIAL BLOOD GAS PCO2 36 mm/Hg (35-45); ARTERIAL BLOOD GAS PH 7.37 (7.35-7.45); ARTERIAL BLOOD GAS TCO2 21.9 mmol.L (22-28)
[2018-04-02 07:16] LABS: ALB/GLOB RATIO 1.1 (1.1-1.8); ALBUMIN 2.9 g/dL (3.0-4.8); ALT/SGPT 31 U/L (7-56); AST/SGOT 34 U/L (17-59); BLOOD UREA NITROGEN 4 mg/dL (7-21); CALCIUM 8.2 mg/dL (8.4-10.5); GFR AFRICAN-AMERICAN > 60; GFR NON-AFRICAN AMERICAN > 60
[2018-04-02] MEDS: Insulin Detemir 100 units/ml Vial (Levemir) SC SCH (09:16)
[2018-04-02] MEDS: Vancomycin 1gm in NS 250ml 1 GM/250 ML BAG IVPB SCH (09:17)
[2018-04-02] MEDS ORDERED: Insulin Lispro (humaLOG) MEDIUM Coverage SC SCH (11:30)
--- NOTE | 2018-04-02 11:46 | CP.CCUPN ---
<Peewee Serna - Last Filed: 04/02/18 13:00> CCU Subjective - Physician Review Subjective (Free Text): Peewee Serna, PGY1 Critical Care Progress Note for Dr. Roberson Patient was examined at bedside this morning. Patient tolerated extubation well. Patient said he was feeling okay. Denied chest pain, shortness of breath, abdominal pain, nausea, vomiting, diarrhea. Patient's only complaint was dry mouth. Full 12 point ROS was reviewed and unremarkable except as stated above. CCU Objective - Vital Signs / Intake & Output Intake and Output (Last 8hrs): Intake & Output 04/01/18 04/02/18 04/02/18 22:59 06:59 14:59 Intake Total 794 100 Output Total 900 Balance -106 100 Intake: IV 94 100 Other 700 Output: Urine 900 Urethral (Curiel) 900 Other: # Bowel Movements 2 - Physical Exam Head: Positive for: Atraumatic, Normocephalic Pupils: Positive for: PERRL Extroacular Muscles: Positive for: EOMI Mouth: Positive for: Dry Pharnyx: Positive for: Normal. Negative for: ERYTHEMA, EXUDATE Respiratory/Chest: Positive for: Clear to Auscultation. Negative for: Wheezes, Rhonchi Cardiovascular: Positive for: Normal S1, S2, Tachycardic Abdomen: Positive for: Normal Bowel Sounds. Negative for: Tenderness, Distention, Peritoneal Signs Upper Extremity: Positive for: Normal Inspection, Normal ROM, NORMAL PULSES. Negative for: Cyanosis, Edema Lower Extremity: Positive for: Normal Inspection. Negative for: Edema Skin: Positive for: Warm, Dry Psychiatric: Positive for: Alert, Oriented x 3 - Medications Active Medications: Active Medications Generic Name Dose Route Start Last Admin Trade Name Freq PRN Reason Stop Dose Admin Heparin Sodium (Porcine) 5,000 units 04/01/18 14:00 04/02/18 06:06 Heparin SC 5,000 units Q8 WILIAN Administration Protocol Meropenem 50 mls @ 100 mls/hr 04/01/18 06:00 04/02/18 06:07 Merrem Iv 1 Gm Premix IVPB 04/10/18 06:01 100 mls/hr Q8 WILIAN Administration Protocol Vancomycin HCl 1 gm in 250 mls @ 167 mls/hr 04/01/18 10:00 04/02/18 09:17 Vancomycin 1gm IVPB 167 mls/hr Q12 WILIAN Administration Protocol Acetaminophen 1,000 mg in 100 mls @ 400 mls/hr 04/01/18 01:30 04/02/18 01:35 Ofirmev IVPB 04/03/18 01:31 400 mls/hr Q6H PRN Administration Temperature Potassium Chloride 10 meq in 100 mls @ 50 mls/hr 04/02/18 08:30 04/02/18 11: 05 Potassium Chloride 10 Meq/100 Ml IVPB 04/02/18 12:29 50 mls/hr Q2H WILIAN Administration Insulin Detemir 14 unit 04/02/18 17:00 Levemir SC DIN WILIAN Insulin Human Lispro 0 units 04/02/18 11:30 04/02/18 11:09 Humalog Med SC Not Given ACHS WILIAN Protocol Pantoprazole Sodium 40 mg 04/01/18 10:00 04/02/18 09:18 Protonix Inj IVP 40 mg DAILY WILIAN Administration - Patient Studies Lab Studies: Microbiology Studies 04/01/18 00:00 MRSA Culture (Admit) - Final Nose MRSA NOT DETECTED 03/31/18 21:26 Urine Culture - Final Urine,Curiel No Growth (<1,000 CFU/ML) 03/31/18 21:08 Blood Culture - Preliminary Blood NO GROWTH AFTER 24 HOURS Lab Studies 04/02/18 04/02/18 04/02/18 Range/Units 10:58 10:09 09:03 WBC (4.5-11.0) 10^3/ul RBC (3.5-6.1) 10^6/uL Hgb (14.0-18.0) g/dL Hct (42.0-52.0) % MCV (80.0-105.0) fl MCH (25.0-35.0) pg MCHC (31.0-37.0) g/dl RDW (11.5-14.5) % Plt Count (120.0-450.0) 10^3/uL MPV (7.0-11.0) fl pCO2 (35-45) mm/Hg pO2 (80-100) mm/Hg HCO3 (21-28) mmol/L ABG pH (7.35-7.45) ABG Total CO2 (22-28) mmol.L ABG O2 Saturation (95-98) % ABG O2 Content (15-23) ML/dl ABG Base Excess (-2.0-3.0) mmol/L ABG Hemoglobin (11.7-17.4) g/dL ABG Carboxyhemoglobin (0.5-1.5) % POC ABG HHb (Measured) (0-5) % ABG Methemoglobin (0.0-3.0) % ABG O2 Capacity (16-24) mL/dl ABG Potassium (3.6-5.2) mmol/L Hgb O2 Saturation (95.0-98.0) % Glucose (75-110) mg/dl Lactate (0.7-2.1) mmol/L FiO2 % Pressure Support CPAP Sodium (132-148) mmol/L Potassium (3.6-5.0) mmol/L Chloride (98-107) mmol/L Carbon Dioxide (21-33) mmol/L Anion Gap (10-20) BUN (7-21) mg/dL Creatinine (0.8-1.5) mg/dl Est GFR ( Amer) Est GFR (Non-Af Amer) POC Glucose (mg/dL) 107 111 H 103 (65-110) mg/dL Random Glucose (70-110) mg/dL Hemoglobin A1c (4.2-6.5) % Calcium (8.4-10.5) mg/dL Phosphorus (2.5-4.5) mg/dL Magnesium (1.7-2.2) mg/dL Total Bilirubin (0.2-1.3) mg/dL AST (17-59) U/L ALT (7-56) U/L Alkaline Phosphatase (38-126) U/L Total Protein (5.8-8.3) g/dL Albumin (3.0-4.8) g/dL Globulin gm/dL Albumin/Globulin Ratio (1.1-1.8) Procalcitonin (0.19-0.49) NG/ML TSH 3rd Generation (0.46-4.68) mIU/mL Arterial Blood Potassium (3.6-5.2) mmol/L 04/02/18 04/02/18 04/02/18 Range/Units 08:33 07:39 06:30 WBC (4.5-11.0) 10^3/ul RBC (3.5-6.1) 10^6/uL Hgb (14.0-18.0) g/dL Hct (42.0-52.0) % MCV (80.0-105.0) fl MCH (25.0-35.0) pg MCHC (31.0-37.0) g/dl RDW (11.5-14.5) % Plt Count (120.0-450.0) 10^3/uL MPV (7.0-11.0) fl pCO2 36 (35-45) mm/Hg pO2 109.0 H (80-100) mm/Hg HCO3 20.8 L (21-28) mmol/L ABG pH 7.37 (7.35-7.45) ABG Total CO2 21.9 L (22-28) mmol.L ABG O2 Saturation 99.0 H (95-98) % ABG O2 Content 24.3 H (15-23) ML/dl ABG Base Excess -3.8 L (-2.0-3.0) mmol/L ABG Hemoglobin 17.7 H (11.7-17.4) g/dL ABG Carboxyhemoglobin 1.3 (0.5-1.5) % POC ABG HHb (Measured) 1.0 (0-5) % ABG Methemoglobin 0.6 (0.0-3.0) % ABG O2 Capacity 24.5 H (16-24) mL/dl ABG Potassium (3.6-5.2) mmol/L Hgb O2 Saturation 97.2 (95.0-98.0) % Glucose (75-110) mg/dl Lactate (0.7-2.1) mmol/L FiO2 40.0 % Pressure Support CPAP Sodium (132-148) mmol/L Potassium (3.6-5.0) mmol/L Chloride (98-107) mmol/L Carbon Dioxide (21-33) mmol/L Anion Gap (10-20) BUN (7-21) mg/dL Creatinine (0.8-1.5) mg/dl Est GFR ( Amer) Est GFR (Non-Af Amer) POC Glucose (mg/dL) 104 94 (65-110) mg/dL Random Glucose (70-110) mg/dL Hemoglobin A1c (4.2-6.5) % Calcium (8.4-10.5) mg/dL Phosphorus (2.5-4.5) mg/dL Magnesium (1.7-2.2) mg/dL Total Bilirubin (0.2-1.3) mg/dL AST (17-59) U/L ALT (7-56) U/L Alkaline Phosphatase (38-126) U/L Total Protein (5.8-8.3) g/dL Albumin (3.0-4.8) g/dL Globulin gm/dL Albumin/Globulin Ratio (1.1-1.8) Procalcitonin (0.19-0.49) NG/ML TSH 3rd Generation (0.46-4.68) mIU/mL Arterial Blood Potassium (3.6-5.2) mmol/L 04/02/18 04/02/18 04/02/18 Range/Units 06:30 06:30 04:50 WBC (4.5-11.0) 10^3/ul RBC (3.5-6.1) 10^6/uL Hgb (14.0-18.0) g/dL Hct (42.0-52.0) % MCV (80.0-105.0) fl MCH (25.0-35.0) pg MCHC (31.0-37.0) g/dl RDW (11.5-14.5) % Plt Count (120.0-450.0) 10^3/uL MPV (7.0-11.0) fl pCO2 (35-45) mm/Hg pO2 (80-100) mm/Hg HCO3 (21-28) mmol/L ABG pH (7.35-7.45) ABG Total CO2 (22-28) mmol.L ABG O2 Saturation (95-98) % ABG O2 Content (15-23) ML/dl ABG Base Excess (-2.0-3.0) mmol/L ABG Hemoglobin (11.7-17.4) g/dL ABG Carboxyhemoglobin (0.5-1.5) % POC ABG HHb (Measured) (0-5) % ABG Methemoglobin (0.0-3.0) % ABG O2 Capacity (16-24) mL/dl ABG Potassium (3.6-5.2) mmol/L Hgb O2 Saturation (95.0-98.0) % Glucose (75-110) mg/dl Lactate (0.7-2.1) mmol/L FiO2 % Pressure Support CPAP Sodium 148 (132-148) mmol/L Potassium 3.1 L (3.6-5.0) mmol/L Chloride 116 H (98-107) mmol/L Carbon Dioxide 25 (21-33) mmol/L Anion Gap 11 (10-20) BUN 4 L (7-21) mg/dL Creatinine 0.4 L (0.8-1.5) mg/dl Est GFR ( Amer) > 60 Est GFR (Non-Af Amer) > 60 POC Glucose (mg/dL) (65-110) mg/dL Random Glucose 111 H (70-110) mg/dL Hemoglobin A1c 11.1 H (4.2-6.5) % Calcium 8.2 L (8.4-10.5) mg/dL Phosphorus 2.8 (2.5-4.5) mg/dL Magnesium 2.2 (1.7-2.2) mg/dL Total Bilirubin 0.7 (0.2-1.3) mg/dL AST 34 (17-59) U/L ALT 31 (7-56) U/L Alkaline Phosphatase 99 (38-126) U/L Total Protein 5.6 L (5.8-8.3) g/dL Albumin 2.9 L (3.0-4.8) g/dL Globulin 2.7 gm/dL Albumin/Globulin Ratio 1.1 (1.1-1.8) Procalcitonin (0.19-0.49) NG/ML TSH 3rd Generation 0.44 L (0.46-4.68) mIU/mL Arterial Blood Potassium (3.6-5.2) mmol/L 04/02/18 04/02/18 04/02/18 Range/Units 04:50 04:49 04:32 WBC 9.0 D (4.5-11.0) 10^3/ul RBC 4.08 (3.5-6.1) 10^6/uL Hgb 11.7 L (14.0-18.0) g/dL Hct 33.6 L (42.0-52.0) % MCV 82.4 (80.0-105.0) fl MCH 28.7 (25.0-35.0) pg MCHC 34.8 (31.0-37.0) g/dl RDW 13.7 (11.5-14.5) % Plt Count 214 (120.0-450.0) 10^3/uL MPV 8.5 (7.0-11.0) fl pCO2 (35-45) mm/Hg pO2 (80-100) mm/Hg HCO3 (21-28) mmol/L ABG pH (7.35-7.45) ABG Total CO2 (22-28) mmol.L ABG O2 Saturation (95-98) % ABG O2 Content (15-23) ML/dl ABG Base Excess (-2.0-3.0) mmol/L ABG Hemoglobin (11.7-17.4) g/dL ABG Carboxyhemoglobin (0.5-1.5) % POC ABG HHb (Measured) (0-5) % ABG Methemoglobin (0.0-3.0) % ABG O2 Capacity (16-24) mL/dl ABG Potassium (3.6-5.2) mmol/L Hgb O2 Saturation (95.0-98.0) % Glucose (75-110) mg/dl Lactate (0.7-2.1) mmol/L FiO2 % Pressure Support CPAP Sodium (132-148) mmol/L Potassium (3.6-5.0) mmol/L Chloride (98-107) mmol/L Carbon Dioxide (21-33) mmol/L Anion Gap (10-20) BUN (7-21) mg/dL Creatinine (0.8-1.5) mg/dl Est GFR ( Amer) Est GFR (Non-Af Amer) POC Glucose (mg/dL) 154 H 46 L (65-110) mg/dL Random Glucose (70-110) mg/dL Hemoglobin A1c (4.2-6.5) % Calcium (8.4-10.5) mg/dL Phosphorus (2.5-4.5) mg/dL Magnesium (1.7-2.2) mg/dL Total Bilirubin (0.2-1.3) mg/dL AST (17-59) U/L ALT (7-56) U/L Alkaline Phosphatase (38-126) U/L Total Protein (5.8-8.3) g/dL Albumin (3.0-4.8) g/dL Globulin gm/dL Albumin/Globulin Ratio (1.1-1.8) Procalcitonin (0.19-0.49) NG/ML TSH 3rd Generation (0.46-4.68) mIU/mL Arterial Blood Potassium (3.6-5.2) mmol/L 04/02/18 04/01/18 04/01/18 Range/Units 04:30 21:20 19:23 WBC (4.5-11.0) 10^3/ul RBC (3.5-6.1) 10^6/uL Hgb (14.0-18.0) g/dL Hct (42.0-52.0) % MCV (80.0-105.0) fl MCH (25.0-35.0) pg MCHC (31.0-37.0) g/dl RDW (11.5-14.5) % Plt Count (120.0-450.0) 10^3/uL MPV (7.0-11.0) fl pCO2 (35-45) mm/Hg pO2 (80-100) mm/Hg HCO3 (21-28) mmol/L ABG pH (7.35-7.45) ABG Total CO2 (22-28) mmol.L ABG O2 Saturation (95-98) % ABG O2 Content (15-23) ML/dl ABG Base Excess (-2.0-3.0) mmol/L ABG Hemoglobin (11.7-17.4) g/dL ABG Carboxyhemoglobin (0.5-1.5) % POC ABG HHb (Measured) (0-5) % ABG Methemoglobin (0.0-3.0) % ABG O2 Capacity (16-24) mL/dl ABG Potassium (3.6-5.2) mmol/L Hgb O2 Saturation (95.0-98.0) % Glucose (75-110) mg/dl Lactate (0.7-2.1) mmol/L FiO2 % Pressure Support CPAP Sodium 149 H (132-148) mmol/L Potassium 3.3 L (3.6-5.0) mmol/L Chloride 115 H (98-107) mmol/L Carbon Dioxide 24 (21-33) mmol/L Anion Gap 14 (10-20) BUN 4 L (7-21) mg/dL Creatinine 0.5 L (0.8-1.5) mg/dl Est GFR ( Amer) > 60 Est GFR (Non-Af Amer) > 60 POC Glucose (mg/dL) 39 L 137 H (65-110) mg/dL Random Glucose 100 (70-110) mg/dL Hemoglobin A1c (4.2-6.5) % Calcium 8.2 L (8.4-10.5) mg/dL Phosphorus (2.5-4.5) mg/dL Magnesium (1.7-2.2) mg/dL Total Bilirubin (0.2-1.3) mg/dL AST (17-59) U/L ALT (7-56) U/L Alkaline Phosphatase (38-126) U/L Total Protein (5.8-8.3) g/dL Albumin (3.0-4.8) g/dL Globulin gm/dL Albumin/Globulin Ratio (1.1-1.8) Procalcitonin (0.19-0.49) NG/ML TSH 3rd Generation (0.46-4.68) mIU/mL Arterial Blood Potassium (3.6-5.2) mmol/L 04/01/18 04/01/18 04/01/18 Range/Units 17:25 17:00 16:03 WBC (4.5-11.0) 10^3/ul RBC (3.5-6.1) 10^6/uL Hgb (14.0-18.0) g/dL Hct (42.0-52.0) % MCV (80.0-105.0) fl MCH (25.0-35.0) pg MCHC (31.0-37.0) g/dl RDW (11.5-14.5) % Plt Count (120.0-450.0) 10^3/uL MPV (7.0-11.0) fl pCO2 34 L (35-45) mm/Hg pO2 164.0 H (80-100) mm/Hg HCO3 21.1 (21-28) mmol/L ABG pH 7.40 (7.35-7.45) ABG Total CO2 22.1 (22-28) mmol.L ABG O2 Saturation 99.1 H (95-98) % ABG O2 Content (15-23) ML/dl ABG Base Excess -3.0 L (-2.0-3.0) mmol/L ABG Hemoglobin (11.7-17.4) g/dL ABG Carboxyhemoglobin (0.5-1.5) % POC ABG HHb (Measured) (0-5) % ABG Methemoglobin (0.0-3.0) % ABG O2 Capacity (16-24) mL/dl ABG Potassium 2.9 L (3.6-5.2) mmol/L Hgb O2 Saturation (95.0-98.0) % Glucose 140 H (75-110) mg/dl Lactate 1.0 (0.7-2.1) mmol/L FiO2 40.0 % Pressure Support 5 CPAP 5 Sodium 148 147.0 (132-148) mmol/L Potassium 3.4 L (3.6-5.0) mmol/L Chloride 116 H 121.0 H (98-107) mmol/L Carbon Dioxide 22 (21-33) mmol/L Anion Gap 14 (10-20) BUN 4 L (7-21) mg/dL Creatinine 0.5 L (0.8-1.5) mg/dl Est GFR ( Amer) > 60 Est GFR (Non-Af Amer) > 60 POC Glucose (mg/dL) 135 H (65-110) mg/dL Random Glucose 145 H (70-110) mg/dL Hemoglobin A1c (4.2-6.5) % Calcium 8.1 L (8.4-10.5) mg/dL Phosphorus (2.5-4.5) mg/dL Magnesium (1.7-2.2) mg/dL Total Bilirubin (0.2-1.3) mg/dL AST (17-59) U/L ALT (7-56) U/L Alkaline Phosphatase (38-126) U/L Total Protein (5.8-8.3) g/dL Albumin (3.0-4.8) g/dL Globulin gm/dL Albumin/Globulin Ratio (1.1-1.8) Procalcitonin (0.19-0.49) NG/ML TSH 3rd Generation (0.46-4.68) mIU/mL Arterial Blood Potassium 2.9 L (3.6-5.2) mmol/L 04/01/18 04/01/18 04/01/18 Range/Units 14:57 14:12 12:50 WBC (4.5-11.0) 10^3/ul RBC (3.5-6.1) 10^6/uL Hgb (14.0-18.0) g/dL Hct (42.0-52.0) % MCV (80.0-105.0) fl MCH (25.0-35.0) pg MCHC (31.0-37.0) g/dl RDW (11.5-14.5) % Plt Count (120.0-450.0) 10^3/uL MPV (7.0-11.0) fl pCO2 (35-45) mm/Hg pO2 (80-100) mm/Hg HCO3 (21-28) mmol/L ABG pH (7.35-7.45) ABG Total CO2 (22-28) mmol.L ABG O2 Saturation (95-98) % ABG O2 Content (15-23) ML/dl ABG Base Excess (-2.0-3.0) mmol/L ABG Hemoglobin (11.7-17.4) g/dL ABG Carboxyhemoglobin (0.5-1.5) % POC ABG HHb (Measured) (0-5) % ABG Methemoglobin (0.0-3.0) % ABG O2 Capacity (16-24) mL/dl ABG Potassium (3.6-5.2) mmol/L Hgb O2 Saturation (95.0-98.0) % Glucose (75-110) mg/dl Lactate (0.7-2.1) mmol/L FiO2 % Pressure Support CPAP Sodium 148 (132-148) mmol/L Potassium 3.4 L (3.6-5.0) mmol/L Chloride 119 H (98-107) mmol/L Carbon Dioxide 19 L (21-33) mmol/L Anion Gap 15 (10-20) BUN 4 L (7-21) mg/dL Creatinine 0.5 L (0.8-1.5) mg/dl Est GFR ( Amer) > 60 Est GFR (Non-Af Amer) > 60 POC Glucose (mg/dL) 126 H 113 H (65-110) mg/dL Random Glucose 144 H (70-110) mg/dL Hemoglobin A1c (4.2-6.5) % Calcium 7.9 L (8.4-10.5) mg/dL Phosphorus (2.5-4.5) mg/dL Magnesium (1.7-2.2) mg/dL Total Bilirubin (0.2-1.3) mg/dL AST (17-59) U/L ALT (7-56) U/L Alkaline Phosphatase (38-126) U/L Total Protein (5.8-8.3) g/dL Albumin (3.0-4.8) g/dL Globulin gm/dL Albumin/Globulin Ratio (1.1-1.8) Procalcitonin (0.19-0.49) NG/ML TSH 3rd Generation (0.46-4.68) mIU/mL Arterial Blood Potassium (3.6-5.2) mmol/L 04/01/18 03/31/18 Range/Units 05:05 21:20 WBC (4.5-11.0) 10^3/ul RBC (3.5-6.1) 10^6/uL Hgb (14.0-18.0) g/dL Hct (42.0-52.0) % MCV (80.0-105.0) fl MCH (25.0-35.0) pg MCHC (31.0-37.0) g/dl RDW (11.5-14.5) % Plt Count (120.0-450.0) 10^3/uL MPV (7.0-11.0) fl pCO2 (35-45) mm/Hg pO2 (80-100) mm/Hg HCO3 (21-28) mmol/L ABG pH (7.35-7.45) ABG Total CO2 (22-28) mmol.L ABG O2 Saturation (95-98) % ABG O2 Content (15-23) ML/dl ABG Base Excess (-2.0-3.0) mmol/L ABG Hemoglobin (11.7-17.4) g/dL ABG Carboxyhemoglobin (0.5-1.5) % POC ABG HHb (Measured) (0-5) % ABG Methemoglobin (0.0-3.0) % ABG O2 Capacity (16-24) mL/dl ABG Potassium (3.6-5.2) mmol/L Hgb O2 Saturation (95.0-98.0) % Glucose (75-110) mg/dl Lactate (0.7-2.1) mmol/L FiO2 % Pressure Support CPAP Sodium (132-148) mmol/L Potassium (3.6-5.0) mmol/L Chloride (98-107) mmol/L Carbon Dioxide (21-33) mmol/L Anion Gap (10-20) BUN (7-21) mg/dL Creatinine (0.8-1.5) mg/dl Est GFR ( Amer) Est GFR (Non-Af Amer) POC Glucose (mg/dL) (65-110) mg/dL Random Glucose (70-110) mg/dL Hemoglobin A1c 11.2 H (4.2-6.5) % Calcium (8.4-10.5) mg/dL Phosphorus (2.5-4.5) mg/dL Magnesium (1.7-2.2) mg/dL Total Bilirubin (0.2-1.3) mg/dL AST (17-59) U/L ALT (7-56) U/L Alkaline Phosphatase (38-126) U/L Total Protein (5.8-8.3) g/dL Albumin (3.0-4.8) g/dL Globulin gm/dL Albumin/Globulin Ratio (1.1-1.8) Procalcitonin 0.45 (0.19-0.49) NG/ML TSH 3rd Generation (0.46-4.68) mIU/mL Arterial Blood Potassium (3.6-5.2) mmol/L Laboratory Results - last 24 hr 03/31/18 04/01/18 04/01/18 21:20 05:05 12:50 WBC RBC Hgb Hct MCV MCH MCHC RDW Plt Count MPV pCO2 pO2 HCO3 ABG pH ABG Total CO2 ABG O2 Saturation ABG O2 Content ABG Base Excess ABG Hemoglobin ABG Carboxyhemoglobin POC ABG HHb (Measured) ABG Methemoglobin ABG O2 Capacity ABG Potassium Hgb O2 Saturation Glucose Lactate FiO2 Pressure Support CPAP Sodium 148 Potassium 3.4 L Chloride 119 H Carbon Dioxide 19 L Anion Gap 15 BUN 4 L Creatinine 0.5 L Est GFR ( Amer) > 60 Est GFR (Non-Af Amer) > 60 POC Glucose (mg/dL) Random Glucose 144 H Hemoglobin A1c 11.2 H Calcium 7.9 L Phosphorus Magnesium Total Bilirubin AST ALT Alkaline Phosphatase Total Protein Albumin Globulin Albumin/Globulin Ratio Procalcitonin 0.45 TSH 3rd Generation Arterial Blood Potassium 04/01/18 04/01/18 04/01/18 14:12 14:57 16:03 WBC RBC Hgb Hct MCV MCH MCHC RDW Plt Count MPV pCO2 pO2 HCO3 ABG pH ABG Total CO2 ABG O2 Saturation ABG O2 Content ABG Base Excess ABG Hemoglobin ABG Carboxyhemoglobin POC ABG HHb (Measured) ABG Methemoglobin ABG O2 Capacity ABG Potassium Hgb O2 Saturation Glucose Lactate FiO2 Pressure Support CPAP Sodium Potassium Chloride Carbon Dioxide Anion Gap BUN Creatinine Est GFR ( Amer) Est GFR (Non-Af Amer) POC Glucose (mg/dL) 113 H 126 H 135 H Random Glucose Hemoglobin A1c Calcium Phosphorus Magnesium Total Bilirubin AST ALT Alkaline Phosphatase Total Protein Albumin Globulin Albumin/Globulin Ratio Procalcitonin TSH 3rd Generation Arterial Blood Potassium 04/01/18 04/01/18 04/01/18 17:00 17:25 19:23 WBC RBC Hgb Hct MCV MCH MCHC RDW Plt Count MPV pCO2 34 L pO2 164.0 H HCO3 21.1 ABG pH 7.40 ABG Total CO2 22.1 ABG O2 Saturation 99.1 H ABG O2 Content ABG Base Excess -3.0 L ABG Hemoglobin ABG Carboxyhemoglobin POC ABG HHb (Measured) ABG Methemoglobin ABG O2 Capacity ABG Potassium 2.9 L Hgb O2 Saturation Glucose 140 H Lactate 1.0 FiO2 40.0 Pressure Support 5 CPAP 5 Sodium 147.0 148 Potassium 3.4 L Chloride 121.0 H 116 H Carbon Dioxide 22 Anion Gap 14 BUN 4 L Creatinine 0.5 L Est GFR ( Amer) > 60 Est GFR (Non-Af Amer) > 60 POC Glucose (mg/dL) 137 H Random Glucose 145 H Hemoglobin A1c Calcium 8.1 L Phosphorus Magnesium Total Bilirubin AST ALT Alkaline Phosphatase Total Protein Albumin Globulin Albumin/Globulin Ratio Procalcitonin TSH 3rd Generation Arterial Blood Potassium 2.9 L 04/01/18 04/02/18 04/02/18 21:20 04:30 04:32 WBC RBC Hgb Hct MCV MCH MCHC RDW Plt Count MPV pCO2 pO2 HCO3 ABG pH ABG Total CO2 ABG O2 Saturation ABG O2 Content ABG Base Excess ABG Hemoglobin ABG Carboxyhemoglobin POC ABG HHb (Measured) ABG Methemoglobin ABG O2 Capacity ABG Potassium Hgb O2 Saturation Glucose Lactate FiO2 Pressure Support CPAP Sodium 149 H Potassium 3.3 L Chloride 115 H Carbon Dioxide 24 Anion Gap 14 BUN 4 L Creatinine 0.5 L Est GFR ( Amer) > 60 Est GFR (Non-Af Amer) > 60 POC Glucose (mg/dL) 39 L 46 L Random Glucose 100 Hemoglobin A1c Calcium 8.2 L Phosphorus Magnesium Total Bilirubin AST ALT Alkaline Phosphatase Total Protein Albumin Globulin Albumin/Globulin Ratio Procalcitonin TSH 3rd Generation Arterial Blood Potassium 04/02/18 04/02/18 04/02/18 04:49 04:50 04:50 WBC 9.0 D RBC 4.08 Hgb 11.7 L Hct 33.6 L MCV 82.4 MCH 28.7 MCHC 34.8 RDW 13.7 Plt Count 214 MPV 8.5 pCO2 pO2 HCO3 ABG pH ABG Total CO2 ABG O2 Saturation ABG O2 Content ABG Base Excess ABG Hemoglobin ABG Carboxyhemoglobin POC ABG HHb (Measured) ABG Methemoglobin ABG O2 Capacity ABG Potassium Hgb O2 Saturation Glucose Lactate FiO2 Pressure Support CPAP Sodium Potassium Chloride Carbon Dioxide Anion Gap BUN Creatinine Est GFR ( Amer) Est GFR (Non-Af Amer) POC Glucose (mg/dL) 154 H Random Glucose Hemoglobin A1c Calcium Phosphorus Magnesium Total Bilirubin AST ALT Alkaline Phosphatase Total Protein Albumin Globulin Albumin/Globulin Ratio Procalcitonin TSH 3rd Generation 0.44 L Arterial Blood Potassium 04/02/18 04/02/18 04/02/18 06:30 06:30 06:30 WBC RBC Hgb Hct MCV MCH MCHC RDW Plt Count MPV pCO2 36 pO2 109.0 H HCO3 20.8 L ABG pH 7.37 ABG Total CO2 21.9 L ABG O2 Saturation 99.0 H ABG O2 Content 24.3 H ABG Base Excess -3.8 L ABG Hemoglobin 17.7 H ABG Carboxyhemoglobin 1.3 POC ABG HHb (Measured) 1.0 ABG Methemoglobin 0.6 ABG O2 Capacity 24.5 H ABG Potassium Hgb O2 Saturation 97.2 Glucose Lactate FiO2 40.0 Pressure Support CPAP Sodium 148 Potassium 3.1 L Chloride 116 H Carbon Dioxide 25 Anion Gap 11 BUN 4 L Creatinine 0.4 L Est GFR ( Amer) > 60 Est GFR (Non-Af Amer) > 60 POC Glucose (mg/dL) Random Glucose 111 H Hemoglobin A1c 11.1 H Calcium 8.2 L Phosphorus 2.8 Magnesium 2.2 Total Bilirubin 0.7 AST 34 ALT 31 Alkaline Phosphatase 99 Total Protein 5.6 L Albumin 2.9 L Globulin 2.7 Albumin/Globulin Ratio 1.1 Procalcitonin TSH 3rd Generation Arterial Blood Potassium 04/02/18 04/02/18 04/02/18 07:39 08:33 09:03 WBC RBC Hgb Hct MCV MCH MCHC RDW Plt Count MPV pCO2 pO2 HCO3 ABG pH ABG Total CO2 ABG O2 Saturation ABG O2 Content ABG Base Excess ABG Hemoglobin ABG Carboxyhemoglobin POC ABG HHb (Measured) ABG Methemoglobin ABG O2 Capacity ABG Potassium Hgb O2 Saturation Glucose Lactate FiO2 Pressure Support CPAP Sodium Potassium Chloride Carbon Dioxide Anion Gap BUN Creatinine Est GFR ( Amer) Est GFR (Non-Af Amer) POC Glucose (mg/dL) 94 104 103 Random Glucose Hemoglobin A1c Calcium Phosphorus Magnesium Total Bilirubin AST ALT Alkaline Phosphatase Total Protein Albumin Globulin Albumin/Globulin Ratio Procalcitonin TSH 3rd Generation Arterial Blood Potassium 04/02/18 04/02/18 10:09 10:58 WBC RBC Hgb Hct MCV MCH MCHC RDW Plt Count MPV pCO2 pO2 HCO3 ABG pH ABG Total CO2 ABG O2 Saturation ABG O2 Content ABG Base Excess ABG Hemoglobin ABG Carboxyhemoglobin POC ABG HHb (Measured) ABG Methemoglobin ABG O2 Capacity ABG Potassium Hgb O2 Saturation Glucose Lactate FiO2 Pressure Support CPAP Sodium Potassium Chloride Carbon Dioxide Anion Gap BUN Creatinine Est GFR ( Amer) Est GFR (Non-Af Amer) POC Glucose (mg/dL) 111 H 107 Random Glucose Hemoglobin A1c Calcium Phosphorus Magnesium Total Bilirubin AST ALT Alkaline Phosphatase Total Protein Albumin Globulin Albumin/Globulin Ratio Procalcitonin TSH 3rd Generation Arterial Blood Potassium Fingerstick Blood Sugar Results: 107 Review of Systems - Review of Systems All systems: reviewed and no additional remarkable complaints except (as per HPI.) Critical Care Progress Note - Nutrition Nutrition: Nutrition Category Date Time Status Heart Healthy Diet [DIET] Diets 04/02/18 Lunch Active Assessment/Plan - Assessment and Plan (Free Text) Assessment: 27-year-old male with PMHx DM1 and medication noncompliance who presented in DKA and lactic acidosis due to noncompliance with his insulin (patient has had multiple hospital visits with same presentation). On admission the patient met criteria for sepsis, but at this time sepsis workup has been negative. Patient was intubated at the ED and managed at the ICU for DKA. Patient anion gap has closed on the unit. Patient was extubated and his clinical condition has improved. Plan: Neuro: - AAOx3: normal mental status - Maintain normothermia - d/c sedatives Cardio: - maintain euvolemia Pulm: - Patient doing well s/p extubation - Maintain SaO2 > 92% GI: - f/u Lipase - GI ppx - Swallow eval s/p extubation - Start on HHD (carb consistent) Renal: - Replete lytes as needed - monitor Potassium levels Endo: - Anion gap closed - DKA resolved - Patient switched to SC Insulin ID - c/w broad spectrum abx - Blood, urine cultures pending results - ID is consulted, recs appreciated Heme - DVT ppx Dispo: patient tolerated extubation well. Patient is medically cleared for transfer from ICU to med-surg. Patient was seen and evaluated with attending, Dr. Roberson. <Giuliano Roberson - Last Filed: 04/02/18 13:34> CCU Objective - Vital Signs / Intake & Output Intake and Output (Last 8hrs): Intake & Output 04/01/18 04/02/18 04/02/18 22:59 06:59 14:59 Intake Total 794 100 Output Total 900 Balance -106 100 Intake: IV 94 100 Other 700 Output: Urine 900 Urethral (Curiel) 900 Other: # Bowel Movements 2 - Medications Active Medications: Active Medications Generic Name Dose Route Start Last Admin Trade Name Freq PRN Reason Stop Dose Admin Heparin Sodium (Porcine) 5,000 units 04/01/18 14:00 04/02/18 06:06 Heparin SC 5,000 units Q8 WILIAN Administration Protocol Meropenem 50 mls @ 100 mls/hr 04/01/18 06:00 04/02/18 06:07 Merrem Iv 1 Gm Premix IVPB 04/10/18 06:01 100 mls/hr Q8 WILIAN Administration Protocol Vancomycin HCl 1 gm in 250 mls @ 167 mls/hr 04/01/18 10:00 04/02/18 09:17 Vancomycin 1gm IVPB 167 mls/hr Q12 WILIAN Administration Protocol Acetaminophen 1,000 mg in 100 mls @ 400 mls/hr 04/01/18 01:30 04/02/18 01:35 Ofirmev IVPB 04/03/18 01:31 400 mls/hr Q6H PRN Administration Temperature Potassium Chloride 10 meq in 100 mls @ 50 mls/hr 04/02/18 08:30 04/02/18 11: 05 Potassium Chloride 10 Meq/100 Ml IVPB 04/02/18 12:29 50 mls/hr Q2H WILIAN Administration Insulin Detemir 14 unit 04/02/18 17:00 Levemir SC DIN WILIAN Insulin Human Lispro 0 units 04/02/18 11:30 04/02/18 11:09 Humalog Med SC Not Given [facility] Protocol Pantoprazole Sodium 40 mg 04/01/18 10:00 04/02/18 09:18 Protonix Inj IVP 40 mg DAILY WILIAN Administration - Patient Studies Lab Studies: Microbiology Studies 04/01/18 00:00 MRSA Culture (Admit) - Final Nose MRSA NOT DETECTED 03/31/18 21:26 Urine Culture - Final Urine,Curiel No Growth (<1,000 CFU/ML) 03/31/18 21:08 Blood Culture - Preliminary Blood NO GROWTH AFTER 24 HOURS Lab Studies 04/02/18 04/02/18 04/02/18 Range/Units 10:58 10:09 09:03 WBC (4.5-11.0) 10^3/ul RBC (3.5-6.1) 10^6/uL Hgb (14.0-18.0) g/dL Hct (42.0-52.0) % MCV (80.0-105.0) fl MCH (25.0-35.0) pg MCHC (31.0-37.0) g/dl RDW (11.5-14.5) % Plt Count (120.0-450.0) 10^3/uL MPV (7.0-11.0) fl pCO2 (35-45) mm/Hg pO2 (80-100) mm/Hg HCO3 (21-28) mmol/L ABG pH (7.35-7.45) ABG Total CO2 (22-28) mmol.L ABG O2 Saturation (95-98) % ABG O2 Content (15-23) ML/dl ABG Base Excess (-2.0-3.0) mmol/L ABG Hemoglobin (11.7-17.4) g/dL ABG Carboxyhemoglobin (0.5-1.5) % POC ABG HHb (Measured) (0-5) % ABG Methemoglobin (0.0-3.0) % ABG O2 Capacity (16-24) mL/dl ABG Potassium (3.6-5.2) mmol/L Hgb O2 Saturation (95.0-98.0) % Glucose (75-110) mg/dl Lactate (0.7-2.1) mmol/L FiO2 % Pressure Support CPAP Sodium (132-148) mmol/L Potassium (3.6-5.0) mmol/L Chloride (98-107) mmol/L Carbon Dioxide (21-33) mmol/L Anion Gap (10-20) BUN (7-21) mg/dL Creatinine (0.8-1.5) mg/dl Est GFR ( Amer) Est GFR (Non-Af Amer) POC Glucose (mg/dL) 107 111 H 103 (65-110) mg/dL Random Glucose (70-110) mg/dL Hemoglobin A1c (4.2-6.5) % Calcium (8.4-10.5) mg/dL Phosphorus (2.5-4.5) mg/dL Magnesium (1.7-2.2) mg/dL Total Bilirubin (0.2-1.3) mg/dL AST (17-59) U/L ALT (7-56) U/L Alkaline Phosphatase (38-126) U/L Total Protein (5.8-8.3) g/dL Albumin (3.0-4.8) g/dL Globulin gm/dL Albumin/Globulin Ratio (1.1-1.8) Procalcitonin (0.19-0.49) NG/ML TSH 3rd Generation (0.46-4.68) mIU/mL Arterial Blood Potassium (3.6-5.2) mmol/L 04/02/18 04/02/18 04/02/18 Range/Units 08:33 07:39 06:30 WBC (4.5-11.0) 10^3/ul RBC (3.5-6.1) 10^6/uL Hgb (14.0-18.0) g/dL Hct (42.0-52.0) % MCV (80.0-105.0) fl MCH (25.0-35.0) pg MCHC (31.0-37.0) g/dl RDW (11.5-14.5) % Plt Count (120.0-450.0) 10^3/uL MPV (7.0-11.0) fl pCO2 36 (35-45) mm/Hg pO2 109.0 H (80-100) mm/Hg HCO3 20.8 L (21-28) mmol/L ABG pH 7.37 (7.35-7.45) ABG Total CO2 21.9 L (22-28) mmol.L ABG O2 Saturation 99.0 H (95-98) % ABG O2 Content 24.3 H (15-23) ML/dl ABG Base Excess -3.8 L (-2.0-3.0) mmol/L ABG Hemoglobin 17.7 H (11.7-17.4) g/dL ABG Carboxyhemoglobin 1.3 (0.5-1.5) % POC ABG HHb (Measured) 1.0 (0-5) % ABG Methemoglobin 0.6 (0.0-3.0) % ABG O2 Capacity 24.5 H (16-24) mL/dl ABG Potassium (3.6-5.2) mmol/L Hgb O2 Saturation 97.2 (95.0-98.0) % Glucose (75-110) mg/dl Lactate (0.7-2.1) mmol/L FiO2 40.0 % Pressure Support CPAP Sodium (132-148) mmol/L Potassium (3.6-5.0) mmol/L Chloride (98-107) mmol/L Carbon Dioxide (21-33) mmol/L Anion Gap (10-20) BUN (7-21) mg/dL Creatinine (0.8-1.5) mg/dl Est GFR ( Amer) Est GFR (Non-Af Amer) POC Glucose (mg/dL) 104 94 (65-110) mg/dL Random Glucose (70-110) mg/dL Hemoglobin A1c (4.2-6.5) % Calcium (8.4-10.5) mg/dL Phosphorus (2.5-4.5) mg/dL Magnesium (1.7-2.2) mg/dL Total Bilirubin (0.2-1.3) mg/dL AST (17-59) U/L ALT (7-56) U/L Alkaline Phosphatase (38-126) U/L Total Protein (5.8-8.3) g/dL Albumin (3.0-4.8) g/dL Globulin gm/dL Albumin/Globulin Ratio (1.1-1.8) Procalcitonin (0.19-0.49) NG/ML TSH 3rd Generation (0.46-4.68) mIU/mL Arterial Blood Potassium (3.6-5.2) mmol/L 04/02/18 04/02/18 04/02/18 Range/Units 06:30 06:30 04:50 WBC (4.5-11.0) 10^3/ul RBC (3.5-6.1) 10^6/uL Hgb (14.0-18.0) g/dL Hct (42.0-52.0) % MCV (80.0-105.0) fl MCH (25.0-35.0) pg MCHC (31.0-37.0) g/dl RDW (11.5-14.5) % Plt Count (120.0-450.0) 10^3/uL MPV (7.0-11.0) fl pCO2 (35-45) mm/Hg pO2 (80-100) mm/Hg HCO3 (21-28) mmol/L ABG pH (7.35-7.45) ABG Total CO2 (22-28) mmol.L ABG O2 Saturation (95-98) % ABG O2 Content (15-23) ML/dl ABG Base Excess (-2.0-3.0) mmol/L ABG Hemoglobin (11.7-17.4) g/dL ABG Carboxyhemoglobin (0.5-1.5) % POC ABG HHb (Measured) (0-5) % ABG Methemoglobin (0.0-3.0) % ABG O2 Capacity (16-24) mL/dl ABG Potassium (3.6-5.2) mmol/L Hgb O2 Saturation (95.0-98.0) % Glucose (75-110) mg/dl Lactate (0.7-2.1) mmol/L FiO2 % Pressure Support CPAP Sodium 148 (132-148) mmol/L Potassium 3.1 L (3.6-5.0) mmol/L Chloride 116 H (98-107) mmol/L Carbon Dioxide 25 (21-33) mmol/L Anion Gap 11 (10-20) BUN 4 L (7-21) mg/dL Creatinine 0.4 L (0.8-1.5) mg/dl Est GFR ( Amer) > 60 Est GFR (Non-Af Amer) > 60 POC Glucose (mg/dL) (65-110) mg/dL Random Glucose 111 H (70-110) mg/dL Hemoglobin A1c 11.1 H (4.2-6.5) % Calcium 8.2 L (8.4-10.5) mg/dL Phosphorus 2.8 (2.5-4.5) mg/dL Magnesium 2.2 (1.7-2.2) mg/dL Total Bilirubin 0.7 (0.2-1.3) mg/dL AST 34 (17-59) U/L ALT 31 (7-56) U/L Alkaline Phosphatase 99 (38-126) U/L Total Protein 5.6 L (5.8-8.3) g/dL Albumin 2.9 L (3.0-4.8) g/dL Globulin 2.7 gm/dL Albumin/Globulin Ratio 1.1 (1.1-1.8) Procalcitonin (0.19-0.49) NG/ML TSH 3rd Generation 0.44 L (0.46-4.68) mIU/mL Arterial Blood Potassium (3.6-5.2) mmol/L 04/02/18 04/02/18 04/02/18 Range/Units 04:50 04:49 04:32 WBC 9.0 D (4.5-11.0) 10^3/ul RBC 4.08 (3.5-6.1) 10^6/uL Hgb 11.7 L (14.0-18.0) g/dL Hct 33.6 L (42.0-52.0) % MCV 82.4 (80.0-105.0) fl MCH 28.7 (25.0-35.0) pg MCHC 34.8 (31.0-37.0) g/dl RDW 13.7 (11.5-14.5) % Plt Count 214 (120.0-450.0) 10^3/uL MPV 8.5 (7.0-11.0) fl pCO2 (35-45) mm/Hg pO2 (80-100) mm/Hg HCO3 (21-28) mmol/L ABG pH (7.35-7.45) ABG Total CO2 (22-28) mmol.L ABG O2 Saturation (95-98) % ABG O2 Content (15-23) ML/dl ABG Base Excess (-2.0-3.0) mmol/L ABG Hemoglobin (11.7-17.4) g/dL ABG Carboxyhemoglobin (0.5-1.5) % POC ABG HHb (Measured) (0-5) % ABG Methemoglobin (0.0-3.0) % ABG O2 Capacity (16-24) mL/dl ABG Potassium (3.6-5.2) mmol/L Hgb O2 Saturation (95.0-98.0) % Glucose (75-110) mg/dl Lactate (0.7-2.1) mmol/L FiO2 % Pressure Support CPAP Sodium (132-148) mmol/L Potassium (3.6-5.0) mmol/L Chloride (98-107) mmol/L Carbon Dioxide (21-33) mmol/L Anion Gap (10-20) BUN (7-21) mg/dL Creatinine (0.8-1.5) mg/dl Est GFR ( Amer) Est GFR (Non-Af Amer) POC Glucose (mg/dL) 154 H 46 L (65-110) mg/dL Random Glucose (70-110) mg/dL Hemoglobin A1c (4.2-6.5) % Calcium (8.4-10.5) mg/dL Phosphorus (2.5-4.5) mg/dL Magnesium (1.7-2.2) mg/dL Total Bilirubin (0.2-1.3) mg/dL AST (17-59) U/L ALT (7-56) U/L Alkaline Phosphatase (38-126) U/L Total Protein (5.8-8.3) g/dL Albumin (3.0-4.8) g/dL Globulin gm/dL Albumin/Globulin Ratio (1.1-1.8) Procalcitonin (0.19-0.49) NG/ML TSH 3rd Generation (0.46-4.68) mIU/mL Arterial Blood Potassium (3.6-5.2) mmol/L 04/02/18 04/01/18 04/01/18 Range/Units 04:30 21:20 19:23 WBC (4.5-11.0) 10^3/ul RBC (3.5-6.1) 10^6/uL Hgb (14.0-18.0) g/dL Hct (42.0-52.0) % MCV (80.0-105.0) fl MCH (25.0-35.0) pg MCHC (31.0-37.0) g/dl RDW (11.5-14.5) % Plt Count (120.0-450.0) 10^3/uL MPV (7.0-11.0) fl pCO2 (35-45) mm/Hg pO2 (80-100) mm/Hg HCO3 (21-28) mmol/L ABG pH (7.35-7.45) ABG Total CO2 (22-28) mmol.L ABG O2 Saturation (95-98) % ABG O2 Content (15-23) ML/dl ABG Base Excess (-2.0-3.0) mmol/L ABG Hemoglobin (11.7-17.4) g/dL ABG Carboxyhemoglobin (0.5-1.5) % POC ABG HHb (Measured) (0-5) % ABG Methemoglobin (0.0-3.0) % ABG O2 Capacity (16-24) mL/dl ABG Potassium (3.6-5.2) mmol/L Hgb O2 Saturation (95.0-98.0) % Glucose (75-110) mg/dl Lactate (0.7-2.1) mmol/L FiO2 % Pressure Support CPAP Sodium 149 H (132-148) mmol/L Potassium 3.3 L (3.6-5.0) mmol/L Chloride 115 H (98-107) mmol/L Carbon Dioxide 24 (21-33) mmol/L Anion Gap 14 (10-20) BUN 4 L (7-21) mg/dL Creatinine 0.5 L (0.8-1.5) mg/dl Est GFR ( Amer) > 60 Est GFR (Non-Af Amer) > 60 POC Glucose (mg/dL) 39 L 137 H (65-110) mg/dL Random Glucose 100 (70-110) mg/dL Hemoglobin A1c (4.2-6.5) % Calcium 8.2 L (8.4-10.5) mg/dL Phosphorus (2.5-4.5) mg/dL Magnesium (1.7-2.2) mg/dL Total Bilirubin (0.2-1.3) mg/dL AST (17-59) U/L ALT (7-56) U/L Alkaline Phosphatase (38-126) U/L Total Protein (5.8-8.3) g/dL Albumin (3.0-4.8) g/dL Globulin gm/dL Albumin/Globulin Ratio (1.1-1.8) Procalcitonin (0.19-0.49) NG/ML TSH 3rd Generation (0.46-4.68) mIU/mL Arterial Blood Potassium (3.6-5.2) mmol/L 04/01/18 04/01/18 04/01/18 Range/Units 17:25 17:00 16:03 WBC (4.5-11.0) 10^3/ul RBC (3.5-6.1) 10^6/uL Hgb (14.0-18.0) g/dL Hct (42.0-52.0) % MCV (80.0-105.0) fl MCH (25.0-35.0) pg MCHC (31.0-37.0) g/dl RDW (11.5-14.5) % Plt Count (120.0-450.0) 10^3/uL MPV (7.0-11.0) fl pCO2 34 L (35-45) mm/Hg pO2 164.0 H (80-100) mm/Hg HCO3 21.1 (21-28) mmol/L ABG pH 7.40 (7.35-7.45) ABG Total CO2 22.1 (22-28) mmol.L ABG O2 Saturation 99.1 H (95-98) % ABG O2 Content (15-23) ML/dl ABG Base Excess -3.0 L (-2.0-3.0) mmol/L ABG Hemoglobin (11.7-17.4) g/dL ABG Carboxyhemoglobin (0.5-1.5) % POC ABG HHb (Measured) (0-5) % ABG Methemoglobin (0.0-3.0) % ABG O2 Capacity (16-24) mL/dl ABG Potassium 2.9 L (3.6-5.2) mmol/L Hgb O2 Saturation (95.0-98.0) % Glucose 140 H (75-110) mg/dl Lactate 1.0 (0.7-2.1) mmol/L FiO2 40.0 % Pressure Support 5 CPAP 5 Sodium 148 147.0 (132-148) mmol/L Potassium 3.4 L (3.6-5.0) mmol/L Chloride 116 H 121.0 H (98-107) mmol/L Carbon Dioxide 22 (21-33) mmol/L Anion Gap 14 (10-20) BUN 4 L (7-21) mg/dL Creatinine 0.5 L (0.8-1.5) mg/dl Est GFR ( Amer) > 60 Est GFR (Non-Af Amer) > 60 POC Glucose (mg/dL) 135 H (65-110) mg/dL Random Glucose 145 H (70-110) mg/dL Hemoglobin A1c (4.2-6.5) % Calcium 8.1 L (8.4-10.5) mg/dL Phosphorus (2.5-4.5) mg/dL Magnesium (1.7-2.2) mg/dL Total Bilirubin (0.2-1.3) mg/dL AST (17-59) U/L ALT (7-56) U/L Alkaline Phosphatase (38-126) U/L Total Protein (5.8-8.3) g/dL Albumin (3.0-4.8) g/dL Globulin gm/dL Albumin/Globulin Ratio (1.1-1.8) Procalcitonin (0.19-0.49) NG/ML TSH 3rd Generation (0.46-4.68) mIU/mL Arterial Blood Potassium 2.9 L (3.6-5.2) mmol/L 04/01/18 04/01/18 04/01/18 Range/Units 14:57 14:12 12:50 WBC (4.5-11.0) 10^3/ul RBC (3.5-6.1) 10^6/uL Hgb (14.0-18.0) g/dL Hct (42.0-52.0) % MCV (80.0-105.0) fl MCH (25.0-35.0) pg MCHC (31.0-37.0) g/dl RDW (11.5-14.5) % Plt Count (120.0-450.0) 10^3/uL MPV (7.0-11.0) fl pCO2 (35-45) mm/Hg pO2 (80-100) mm/Hg HCO3 (21-28) mmol/L ABG pH (7.35-7.45) ABG Total CO2 (22-28) mmol.L ABG O2 Saturation (95-98) % ABG O2 Content (15-23) ML/dl ABG Base Excess (-2.0-3.0) mmol/L ABG Hemoglobin (11.7-17.4) g/dL ABG Carboxyhemoglobin (0.5-1.5) % POC ABG HHb (Measured) (0-5) % ABG Methemoglobin (0.0-3.0) % ABG O2 Capacity (16-24) mL/dl ABG Potassium (3.6-5.2) mmol/L Hgb O2 Saturation (95.0-98.0) % Glucose (75-110) mg/dl Lactate (0.7-2.1) mmol/L FiO2 % Pressure Support CPAP Sodium 148 (132-148) mmol/L Potassium 3.4 L (3.6-5.0) mmol/L Chloride 119 H (98-107) mmol/L Carbon Dioxide 19 L (21-33) mmol/L Anion Gap 15 (10-20) BUN 4 L (7-21) mg/dL Creatinine 0.5 L (0.8-1.5) mg/dl Est GFR ( Amer) > 60 Est GFR (Non-Af Amer) > 60 POC Glucose (mg/dL) 126 H 113 H (65-110) mg/dL Random Glucose 144 H (70-110) mg/dL Hemoglobin A1c (4.2-6.5) % Calcium 7.9 L (8.4-10.5) mg/dL Phosphorus (2.5-4.5) mg/dL Magnesium (1.7-2.2) mg/dL Total Bilirubin (0.2-1.3) mg/dL AST (17-59) U/L ALT (7-56) U/L Alkaline Phosphatase (38-126) U/L Total Protein (5.8-8.3) g/dL Albumin (3.0-4.8) g/dL Globulin gm/dL Albumin/Globulin Ratio (1.1-1.8) Procalcitonin (0.19-0.49) NG/ML TSH 3rd Generation (0.46-4.68) mIU/mL Arterial Blood Potassium (3.6-5.2) mmol/L 04/01/18 03/31/18 Range/Units 05:05 21:20 WBC (4.5-11.0) 10^3/ul RBC (3.5-6.1) 10^6/uL Hgb (14.0-18.0) g/dL Hct (42.0-52.0) % MCV (80.0-105.0) fl MCH (25.0-35.0) pg MCHC (31.0-37.0) g/dl RDW (11.5-14.5) % Plt Count (120.0-450.0) 10^3/uL MPV (7.0-11.0) fl pCO2 (35-45) mm/Hg pO2 (80-100) mm/Hg HCO3 (21-28) mmol/L ABG pH (7.35-7.45) ABG Total CO2 (22-28) mmol.L ABG O2 Saturation (95-98) % ABG O2 Content (15-23) ML/dl ABG Base Excess (-2.0-3.0) mmol/L ABG Hemoglobin (11.7-17.4) g/dL ABG Carboxyhemoglobin (0.5-1.5) % POC ABG HHb (Measured) (0-5) % ABG Methemoglobin (0.0-3.0) % ABG O2 Capacity (16-24) mL/dl ABG Potassium (3.6-5.2) mmol/L Hgb O2 Saturation (95.0-98.0) % Glucose (75-110) mg/dl Lactate (0.7-2.1) mmol/L FiO2 % Pressure Support CPAP Sodium (132-148) mmol/L Potassium (3.6-5.0) mmol/L Chloride (98-107) mmol/L Carbon Dioxide (21-33) mmol/L Anion Gap (10-20) BUN (7-21) mg/dL Creatinine (0.8-1.5) mg/dl Est GFR ( Amer) Est GFR (Non-Af Amer) POC Glucose (mg/dL) (65-110) mg/dL Random Glucose (70-110) mg/dL Hemoglobin A1c 11.2 H (4.2-6.5) % Calcium (8.4-10.5) mg/dL Phosphorus (2.5-4.5) mg/dL Magnesium (1.7-2.2) mg/dL Total Bilirubin (0.2-1.3) mg/dL AST (17-59) U/L ALT (7-56) U/L Alkaline Phosphatase (38-126) U/L Total Protein (5.8-8.3) g/dL Albumin (3.0-4.8) g/dL Globulin gm/dL Albumin/Globulin Ratio (1.1-1.8) Procalcitonin 0.45 (0.19-0.49) NG/ML TSH 3rd Generation (0.46-4.68) mIU/mL Arterial Blood Potassium (3.6-5.2) mmol/L Laboratory Results - last 24 hr 03/31/18 04/01/18 04/01/18 21:20 05:05 12:50 WBC RBC Hgb Hct MCV MCH MCHC RDW Plt Count MPV pCO2 pO2 HCO3 ABG pH ABG Total CO2 ABG O2 Saturation ABG O2 Content ABG Base Excess ABG Hemoglobin ABG Carboxyhemoglobin POC ABG HHb (Measured) ABG Methemoglobin ABG O2 Capacity ABG Potassium Hgb O2 Saturation Glucose Lactate FiO2 Pressure Support CPAP Sodium 148 Potassium 3.4 L Chloride 119 H Carbon Dioxide 19 L Anion Gap 15 BUN 4 L Creatinine 0.5 L Est GFR ( Amer) > 60 Est GFR (Non-Af Amer) > 60 POC Glucose (mg/dL) Random Glucose 144 H Hemoglobin A1c 11.2 H Calcium 7.9 L Phosphorus Magnesium Total Bilirubin AST ALT Alkaline Phosphatase Total Protein Albumin Globulin Albumin/Globulin Ratio Procalcitonin 0.45 TSH 3rd Generation Arterial Blood Potassium 04/01/18 04/01/18 04/01/18 14:12 14:57 16:03 WBC RBC Hgb Hct MCV MCH MCHC RDW Plt Count MPV pCO2 pO2 HCO3 ABG pH ABG Total CO2 ABG O2 Saturation ABG O2 Content ABG Base Excess ABG Hemoglobin ABG Carboxyhemoglobin POC ABG HHb (Measured) ABG Methemoglobin ABG O2 Capacity ABG Potassium Hgb O2 Saturation Glucose Lactate FiO2 Pressure Support CPAP Sodium Potassium Chloride Carbon Dioxide Anion Gap BUN Creatinine Est GFR ( Amer) Est GFR (Non-Af Amer) POC Glucose (mg/dL) 113 H 126 H 135 H Random Glucose Hemoglobin A1c Calcium Phosphorus Magnesium Total Bilirubin AST ALT Alkaline Phosphatase Total Protein Albumin Globulin Albumin/Globulin Ratio Procalcitonin TSH 3rd Generation Arterial Blood Potassium 04/01/18 04/01/18 04/01/18 17:00 17:25 19:23 WBC RBC Hgb Hct MCV MCH MCHC RDW Plt Count MPV pCO2 34 L pO2 164.0 H HCO3 21.1 ABG pH 7.40 ABG Total CO2 22.1 ABG O2 Saturation 99.1 H ABG O2 Content ABG Base Excess -3.0 L ABG Hemoglobin ABG Carboxyhemoglobin POC ABG HHb (Measured) ABG Methemoglobin ABG O2 Capacity ABG Potassium 2.9 L Hgb O2 Saturation Glucose 140 H Lactate 1.0 FiO2 40.0 Pressure Support 5 CPAP 5 Sodium 147.0 148 Potassium 3.4 L Chloride 121.0 H 116 H Carbon Dioxide 22 Anion Gap 14 BUN 4 L Creatinine 0.5 L Est GFR ( Amer) > 60 Est GFR (Non-Af Amer) > 60 POC Glucose (mg/dL) 137 H Random Glucose 145 H Hemoglobin A1c Calcium 8.1 L Phosphorus Magnesium Total Bilirubin AST ALT Alkaline Phosphatase Total Protein Albumin Globulin Albumin/Globulin Ratio Procalcitonin TSH 3rd Generation Arterial Blood Potassium 2.9 L 04/01/18 04/02/18 04/02/18 21:20 04:30 04:32 WBC RBC Hgb Hct MCV MCH MCHC RDW Plt Count MPV pCO2 pO2 HCO3 ABG pH ABG Total CO2 ABG O2 Saturation ABG O2 Content ABG Base Excess ABG Hemoglobin ABG Carboxyhemoglobin POC ABG HHb (Measured) ABG Methemoglobin ABG O2 Capacity ABG Potassium Hgb O2 Saturation Glucose Lactate FiO2 Pressure Support CPAP Sodium 149 H Potassium 3.3 L Chloride 115 H Carbon Dioxide 24 Anion Gap 14 BUN 4 L Creatinine 0.5 L Est GFR ( Amer) > 60 Est GFR (Non-Af Amer) > 60 POC Glucose (mg/dL) 39 L 46 L Random Glucose 100 Hemoglobin A1c Calcium 8.2 L Phosphorus Magnesium Total Bilirubin AST ALT Alkaline Phosphatase Total Protein Albumin Globulin Albumin/Globulin Ratio Procalcitonin TSH 3rd Generation Arterial Blood Potassium 04/02/18 04/02/18 04/02/18 04:49 04:50 04:50 WBC 9.0 D RBC 4.08 Hgb 11.7 L Hct 33.6 L MCV 82.4 MCH 28.7 MCHC 34.8 RDW 13.7 Plt Count 214 MPV 8.5 pCO2 pO2 HCO3 ABG pH ABG Total CO2 ABG O2 Saturation ABG O2 Content ABG Base Excess ABG Hemoglobin ABG Carboxyhemoglobin POC ABG HHb (Measured) ABG Methemoglobin ABG O2 Capacity ABG Potassium Hgb O2 Saturation Glucose Lactate FiO2 Pressure Support CPAP Sodium Potassium Chloride Carbon Dioxide Anion Gap BUN Creatinine Est GFR ( Amer) Est GFR (Non-Af Amer) POC Glucose (mg/dL) 154 H Random Glucose Hemoglobin A1c Calcium Phosphorus Magnesium Total Bilirubin AST ALT Alkaline Phosphatase Total Protein Albumin Globulin Albumin/Globulin Ratio Procalcitonin TSH 3rd Generation 0.44 L Arterial Blood Potassium 04/02/18 04/02/18 04/02/18 06:30 06:30 06:30 WBC RBC Hgb Hct MCV MCH MCHC RDW Plt Count MPV pCO2 36 pO2 109.0 H HCO3 20.8 L ABG pH 7.37 ABG Total CO2 21.9 L ABG O2 Saturation 99.0 H ABG O2 Content 24.3 H ABG Base Excess -3.8 L ABG Hemoglobin 17.7 H ABG Carboxyhemoglobin 1.3 POC ABG HHb (Measured) 1.0 ABG Methemoglobin 0.6 ABG O2 Capacity 24.5 H ABG Potassium Hgb O2 Saturation 97.2 Glucose Lactate FiO2 40.0 Pressure Support CPAP Sodium 148 Potassium 3.1 L Chloride 116 H Carbon Dioxide 25 Anion Gap 11 BUN 4 L Creatinine 0.4 L Est GFR ( Amer) > 60 Est GFR (Non-Af Amer) > 60 POC Glucose (mg/dL) Random Glucose 111 H Hemoglobin A1c 11.1 H Calcium 8.2 L Phosphorus 2.8 Magnesium 2.2 Total Bilirubin 0.7 AST 34 ALT 31 Alkaline Phosphatase 99 Total Protein 5.6 L Albumin 2.9 L Globulin 2.7 Albumin/Globulin Ratio 1.1 Procalcitonin TSH 3rd Generation Arterial Blood Potassium 04/02/18 04/02/18 04/02/18 07:39 08:33 09:03 WBC RBC Hgb Hct MCV MCH MCHC RDW Plt Count MPV pCO2 pO2 HCO3 ABG pH ABG Total CO2 ABG O2 Saturation ABG O2 Content ABG Base Excess ABG Hemoglobin ABG Carboxyhemoglobin POC ABG HHb (Measured) ABG Methemoglobin ABG O2 Capacity ABG Potassium Hgb O2 Saturation Glucose Lactate FiO2 Pressure Support CPAP Sodium Potassium Chloride Carbon Dioxide Anion Gap BUN Creatinine Est GFR ( Amer) Est GFR (Non-Af Amer) POC Glucose (mg/dL) 94 104 103 Random Glucose Hemoglobin A1c Calcium Phosphorus Magnesium Total Bilirubin AST ALT Alkaline Phosphatase Total Protein Albumin Globulin Albumin/Globulin Ratio Procalcitonin TSH 3rd Generation Arterial Blood Potassium 04/02/18 04/02/18 10:09 10:58 WBC RBC Hgb Hct MCV MCH MCHC RDW Plt Count MPV pCO2 pO2 HCO3 ABG pH ABG Total CO2 ABG O2 Saturation ABG O2 Content ABG Base Excess ABG Hemoglobin ABG Carboxyhemoglobin POC ABG HHb (Measured) ABG Methemoglobin ABG O2 Capacity ABG Potassium Hgb O2 Saturation Glucose Lactate FiO2 Pressure Support CPAP Sodium Potassium Chloride Carbon Dioxide Anion Gap BUN Creatinine Est GFR ( Amer) Est GFR (Non-Af Amer) POC Glucose (mg/dL) 111 H 107 Random Glucose Hemoglobin A1c Calcium Phosphorus Magnesium Total Bilirubin AST ALT Alkaline Phosphatase Total Protein Albumin Globulin Albumin/Globulin Ratio Procalcitonin TSH 3rd Generation Arterial Blood Potassium Critical Care Progress Note - Nutrition Nutrition: Nutrition Category Date Time Status Heart Healthy Diet [DIET] Diets 04/02/18 Lunch Active Assessment/Plan - Assessment and Plan (Free Text) Plan: Patient seen and examined on rounds with resident, agree with note with following additions/exceptions: Patient is 27yo male with PMHx of DM, multiple admissions for DKA, non compliance with meds, presented with severe DKA, metabolic acidosis, requiring intubation. Pt this morning was extubated to 2LNC, AAox3, doing well, NAD, no major complaints. Pt is off insulin drip, FS have been controlled DKA. resolved Metabolic Acidosis, resolved Dehydration Recommend: - supp o2 as needed, duonebs PRN - would DC abx, cultures neg, procal normal - BP control - would DC IVF - diabetic diet - sliding scale, Levemir - SW consult - GI ppx - DVT ppx - Transfer to med surg
--- NOTE | 2018-04-02 12:55 | PN ---
DATE: 04/02/2018 SUBJECTIVE: The patient is in bed, intubated on the ventilator, seen earlier this morning in [facility]U 129, bed 3 with a low-grade fever, is uneventful night as per nurse caring for the patient. PHYSICAL EXAMINATION: VITAL SIGNS: Temperature is down to 99.3, T-max yesterday was 100.8, blood pressure is 130/60, respiratory rate of 18 on the vent, heart rate of 80. HEENT: Unremarkable. NECK: Supple. HEART: Normal S1, S2. LUNGS: Decreased breath sounds. ABDOMEN: Soft, nontender. LABORATORY EXAMINATION: Reveals the patient has a white count of 9000, hemoglobin of 11, platelets of 214, BUN of 4, creatinine of 0.4, procalcitonin 0.45. Urinalysis is noted. Microbiology reveals urine culture is negative, blood cultures are negative. Chest x-ray no active disease. Dr. Trevino's note is reviewed from yesterday and the patient's procalcitonin is 0.45. ASSESSMENT AND PLAN: A 27-year-old male with no known allergies with a history of diabetes mellitus and high cholesterol, who signed out AMA, returns short of breath with systemic inflammatory response syndrome, respiratory failure, intubated and on ventilator with diabetic ketoacidosis and lactic acidosis with increased anion gap metabolic acidosis. Thus far, the white count this morning is normal. The blood and urine cultures have no growth. Chest x-ray is negative and normal procalcitonin. No evidence of infection at this point with LFTs are normal and abdominal exam is soft, will be discontinuing the antibiotics within 24 to 48 hours. Currently on vanco and meropenem. We will check on the final culture results. Antonio Mclean MD
--- NOTE | 2018-04-02 15:34 | CP.PCM.PN ---
<Keith Shaffer Jessica - Last Filed: 04/02/18 15:36> Subjective - Date & Time of Evaluation Date of Evaluation: 04/02/18 Time of Evaluation: 15:31 - Subjective Subjective: Medicine progress note for Dr. Trevino: Deena, PGY-2 Patient seen and examined at bedside. Patient states that he is groggy but denies any other complaints at present. History limited 2/2 recent extubation. Does not feel like taking anything by mouth at this time Objective - Vital Signs/Intake and Output Vital Signs (last 24 hours): Temp Pulse Resp BP Pulse Ox 93.4 F L 103 H 39 H 134/69 99 04/02/18 15:03 04/02/18 15:03 04/02/18 15:00 04/02/18 15:00 04/02/18 15:03 Intake and Output: 04/02/18 04/02/18 06:59 18:59 Intake Total 178 Output Total 450 Balance 178 -450 - Medications Medications: Current Medications Heparin Sodium (Porcine) (Heparin) 5,000 units SC Q8 WILIAN PRN Reason: Protocol Last Admin: 04/02/18 14:53 Dose: 5,000 units Acetaminophen (Ofirmev) 1,000 mg in 100 mls @ 400 mls/hr IVPB Q6H PRN PRN Reason: Temperature Stop: 04/03/18 01:31 Last Admin: 04/02/18 01:35 Dose: 400 mls/hr Insulin Detemir (Levemir) 14 unit SC HS WILIAN Insulin Human Lispro (Humalog Low) 0 units SC ACHS WILIAN PRN Reason: Protocol Pantoprazole Sodium (Protonix Inj) 40 mg IVP DAILY [facility] Last Admin: 04/02/18 09:18 Dose: 40 mg - Labs Labs: 04/02/18 04:50 04/02/18 06:30 PT 10.9 SECONDS (9.4-12.5) 04/01/18 05:20 INR 0.95 (0.93-1.08) 04/01/18 05:20 APTT 24.1 Seconds (25.1-36.5) L 04/01/18 05:20 - Constitutional Appears: Well - Head Exam Head Exam: ATRAUMATIC, NORMAL INSPECTION, NORMOCEPHALIC - Eye Exam Eye Exam: EOMI, Normal appearance, PERRL Pupil Exam: NORMAL ACCOMODATION, PERRL - ENT Exam ENT Exam: Mucous Membranes Moist, Normal Exam - Neck Exam Neck Exam: Full ROM, Normal Inspection. absent: Lymphadenopathy - Respiratory Exam Respiratory Exam: Clear to Ausculation Bilateral, NORMAL BREATHING PATTERN - Cardiovascular Exam Cardiovascular Exam: REGULAR RHYTHM, +S1, +S2. absent: Murmur - GI/Abdominal Exam GI & Abdominal Exam: Soft, Normal Bowel Sounds. absent: Tenderness - Extremities Exam Extremities Exam: Full ROM, Normal Capillary Refill, Normal Inspection. absent : Joint Swelling, Pedal Edema - Back Exam Back Exam: NORMAL INSPECTION - Neurological Exam Neurological Exam: Alert, Awake, CN II-XII Intact, Normal Gait, Oriented x3 - Psychiatric Exam Psychiatric exam: Normal Affect, Normal Mood - Skin Skin Exam: Dry, Intact, Normal Color, Warm Assessment and Plan - Assessment and Plan (Free Text) Assessment: 27 year old male with past medical history of DM type 1, medical non-compliance , and recent AMA from hospital admission for DKA. Patient evaluated in ED and found to have elevated lactate, leukocytosis for which Code spesis was called. Patient also noted to have elevated anion gap of 35, kussmal breathing, bg of 551. Pt intubated and sedated and placed on insulin drip and transferred to ICU. Today (04/02), patient's leukocytosis has resolved and AG is closed. Patient is extubated. Cultures are negative, procal is negative, HIV is negative, but patient is still getting recurrent fevers. Plan: DKA: Resolved - Etiology: Infectious vs. Dehydration vs. Medical noncompliance vs. Substance abuse - Monitor and replace electrolytes as needed - Switched to Levemir 14 sc and RISS from insulin gtt - Endocrinology consultation: Dr. Severino Acute Respiratory Failure: Resolved - Patient extubated and satting fine on room air SIRS likely 2/2 DKA - Cultures are negative, but patient getting fevers - Patient given IVF, 3 Liters in ED and started on Meropenem and Vancomycin - Patient BP stable, tachycardic, and afebrile Leukocytosis: Resolved - Monitor with CBC GI/DVT ppx - Protonix, NPO - Heparin 5000 U SQ Dispo: Patient getting diet today for dinner <Chris Trevino - Last Filed: 04/02/18 16:49> Objective - Vital Signs/Intake and Output Vital Signs (last 24 hours): Temp Pulse Resp BP Pulse Ox 93.4 F L 103 H 39 H 134/69 99 04/02/18 15:03 04/02/18 15:03 04/02/18 15:00 04/02/18 15:00 04/02/18 15:03 Intake and Output: 04/02/18 04/02/18 06:59 18:59 Intake Total 178 Output Total 450 Balance 178 -450 - Medications Medications: Current Medications Acetaminophen (Tylenol 325mg Tab) 650 mg PO Q6H PRN PRN Reason: Headache Heparin Sodium (Porcine) (Heparin) 5,000 units SC Q8 WILIAN PRN Reason: Protocol Last Admin: 04/02/18 14:53 Dose: 5,000 units Insulin Detemir (Levemir) 14 unit SC HS WILIAN Insulin Human Lispro (Humalog Low) 0 units SC ACHS WILIAN PRN Reason: Protocol Last Admin: 04/02/18 16:07 Dose: Not Given Pantoprazole Sodium (Protonix Inj) 40 mg IVP DAILY WILIAN Last Admin: 04/02/18 09:18 Dose: 40 mg - Labs Labs: 04/02/18 04:50 04/02/18 06:30 PT 10.9 SECONDS (9.4-12.5) 04/01/18 05:20 INR 0.95 (0.93-1.08) 04/01/18 05:20 APTT 24.1 Seconds (25.1-36.5) L 04/01/18 05:20 Attending/Attestation - Attestation I have personally seen and examined this patient.: Yes I have fully participated in the care of the patient.: Yes I have reviewed all pertinent clinical information, including history, physical exam and plan: Yes Notes (Text): 04/02/18 16:46 27 year old male with past medical history of diabetes, medication noncompliance who presented with DKA which resolved after treatment with iv fluids and insulin drip. He is on insulin ss and levemir. Endocrinology is following. He was also found to have SIR with leukocytosis and lactic acidosis which improved. He was started on empiric antibiotics. Cultures are negative to date. ID is following. He was extubated this morning. Will replete and repeat lytes (potassium). Chris Trevino MD Hospitalist.
[2018-04-02] MEDS: Insulin Lispro (humaLOG) LOW Coverage SC SCH ×2 (16:07→21:48)
[2018-04-02] MEDS ORDERED: Insulin Detemir 100 units/ml Vial (Levemir) SC SCH ×2 (17:00→22:00)
--- NOTE | 2018-04-02 19:55 | PN ---
DATE: 04/02/2018 ENDOCRINOLOGY FOLLOWUP NOTE LOCATION: ICU 129, room 3. SUBJECTIVE: This is a 27-year-old male with recent uncontrolled type 1 insulin-dependent diabetes, presenting here with diabetic ketoacidosis and dehydration and a brief prophylactic intubation and has since then been extubated today as noted. His glycemic plan was vigorous IV hydration and intensive insulin therapy with an insulin drip infusion which has since then been discontinued from last night. His glucose levels today have ranged from 107 to 111 mg/dL with a hemoglobin A1c of 11.1%, which is extremely elevated and indicative of very poor outpatient metabolic control of his diabetic condition. So at this time, the medical staff has placed him on medium algorithm dosing for the Humalog insulin, which should be switched over to a very low-dose coverage scale as he may eventually need prandial Humalog regimen to cover the 3 meals as his oral intake improves accordingly. We will switch over his basal insulin with Levemir to be given as 14 units subcutaneous at bedtime daily as given. We will titrate incrementally as indicated to optimize metabolic control. We will continue the IV hydration to optimize his fluid and electrolyte losses as noted. We will obtain serial chemistries and supplement accordingly as needed. We will follow with you. Dede Severino MD
[2018-04-02 22:42] VITALS: RESP 20
[2018-04-03 07:51] LABS: HEMOGLOBIN 11.8 g/dL (14.0-18.0); MEAN CELL VOLUME 81.1 fl (80.0-105.0); MEAN CORPUSCULAR HGB CONC 35.8 g/dl (31.0-37.0); MEAN PLATELET VOLUME 8.7 fl (7.0-11.0); RBC 4.07 10^6/uL (3.5-6.1); RED CELL DISTRIBUTION WIDTH 13.1 % (11.5-14.5); WHITE BLOOD COUNT 6.3 10^3/ul (4.5-11.0)
[2018-04-03] MEDS: Insulin Lispro (humaLOG) LOW Coverage SC SCH ×3 (08:01→17:07)
[2018-04-03 08:32] LABS: ALB/GLOB RATIO 1.1 (1.1-1.8); ALBUMIN 3.2 g/dL (3.0-4.8); ALT/SGPT 47 U/L (7-56); AST/SGOT 84 U/L (17-59); BLOOD UREA NITROGEN 6 mg/dL (7-21); CALCIUM 8.4 mg/dL (8.4-10.5); GFR AFRICAN-AMERICAN > 60; GFR NON-AFRICAN AMERICAN > 60
[2018-04-03 09:01] VITALS: BP 124/74; PULSE 76; TEMP 97.8; O2SAT 99
[2018-04-03] MEDS ORDERED: Potassium Chloride 20 mEq ER Tab PO ONE ×2 (09:03→14:12)
[2018-04-03 13:13] LABS: ALB/GLOB RATIO 1.1 (1.1-1.8); ALBUMIN 3.1 g/dL (3.0-4.8); ALT/SGPT 40 U/L (7-56); AST/SGOT 84 U/L (17-59); BLOOD UREA NITROGEN 6 mg/dL (7-21); CALCIUM 8.3 mg/dL (8.4-10.5); GFR AFRICAN-AMERICAN > 60; GFR NON-AFRICAN AMERICAN > 60
--- NOTE | 2018-04-03 16:47 | CP.PCM.DIS ---
<JyotiLoki - Last Filed: 04/03/18 17:27> Provider - Provider Date of Admission: 03/31/18 18:40 Attending physician: Chris Trevino MD Consults: Endocrinology Time Spent in preparation of Discharge (in minutes): 45 Hospital Course - Lab Results Lab Results: Micro Results 03/31/18 21:08 Blood Blood Culture - Preliminary NO GROWTH AFTER 48 HOURS 04/01/18 00:00 Nose MRSA Culture (Admit) - Final MRSA NOT DETECTED 03/31/18 21:26 Urine,Curiel Urine Culture - Final No Growth (<1,000 CFU/ML) Most Recent Lab Values WBC 6.3 10^3/ul (4.5-11.0) D 04/03/18 07:30 RBC 4.07 10^6/uL (3.5-6.1) 04/03/18 07:30 Hgb 11.8 g/dL (14.0-18.0) L 04/03/18 07:30 Hct 33.0 % (42.0-52.0) L 04/03/18 07:30 MCV 81.1 fl (80.0-105.0) 04/03/18 07:30 MCH 29.0 pg (25.0-35.0) 04/03/18 07:30 MCHC 35.8 g/dl (31.0-37.0) 04/03/18 07:30 RDW 13.1 % (11.5-14.5) 04/03/18 07:30 Plt Count 207 10^3/uL (120.0-450.0) 04/03/18 07:30 MPV 8.7 fl (7.0-11.0) 04/03/18 07:30 Gran % 85.7 % (50.0-68.0) H 03/31/18 17:03 Lymph % (Auto) 8.3 % (22.0-35.0) L 03/31/18 17:03 [place] % (Auto) 5.9 % (1.0-6.0) 03/31/18 17:03 Eos % (Auto) 0.0 % (1.5-5.0) L 03/31/18 17:03 Baso % (Auto) 0.1 % (0.0-3.0) 03/31/18 17:03 Gran # 22.98 (1.4-6.5) H 03/31/18 17:03 Lymph # (Auto) 2.2 (1.2-3.4) 03/31/18 17:03 [place] # (Auto) 1.6 (0.1-0.6) H 03/31/18 17:03 Eos # (Auto) 0.0 (0.0-0.7) 03/31/18 17:03 Baso # (Auto) 0.04 K/mm3 (0.0-2.0) 03/31/18 17:03 PT 10.9 SECONDS (9.4-12.5) 04/01/18 05:20 INR 0.95 (0.93-1.08) 04/01/18 05:20 APTT 24.1 Seconds (25.1-36.5) L 04/01/18 05:20 pCO2 36 mm/Hg (35-45) 04/02/18 06:30 pO2 109.0 mm/Hg (80-100) H 04/02/18 06:30 HCO3 20.8 mmol/L (21-28) L 04/02/18 06:30 ABG pH 7.37 (7.35-7.45) 04/02/18 06:30 ABG Total CO2 21.9 mmol.L (22-28) L 04/02/18 06:30 ABG O2 Saturation 99.0 % (95-98) H 04/02/18 06:30 ABG O2 Content 24.3 ML/dl (15-23) H 04/02/18 06:30 ABG Base Excess -3.8 mmol/L (-2.0-3.0) L 04/02/18 06:30 ABG Hemoglobin 17.7 g/dL (11.7-17.4) H 04/02/18 06:30 ABG Carboxyhemoglobin 1.3 % (0.5-1.5) 04/02/18 06:30 POC ABG HHb (Measured) 1.0 % (0-5) 04/02/18 06:30 ABG Methemoglobin 0.6 % (0.0-3.0) 04/02/18 06:30 ABG O2 Capacity 24.5 mL/dl (16-24) H 04/02/18 06:30 ABG Potassium 2.9 mmol/L (3.6-5.2) L 04/01/18 17:00 VBG pH 7.03 (7.32-7.43) L* 03/31/18 21:20 VBG pCO2 52.0 (40-60) 03/31/18 21:20 VBG HCO3 13.7 mmol/l (21-28) L 03/31/18 21:20 VBG Total CO2 15.3 mmol.L (22-28) L 03/31/18 21:20 VBG O2 Sat (Calc) 87.7 % (40-65) H 03/31/18 21:20 VBG Base Excess -17.1 mmol/L (0.0-2.0) L 03/31/18 21:20 VBG Potassium 3.9 mmol/L (3.6-5.2) 03/31/18 21:20 Hgb O2 Saturation 97.2 % (95.0-98.0) 04/02/18 06:30 Sodium 147.0 mmol/L (132-148) 04/01/18 17:00 Chloride 121.0 mmol/L (98-107) H 04/01/18 17:00 Glucose 140 mg/dl (75-110) H 04/01/18 17:00 Lactate 1.0 mmol/L (0.7-2.1) 04/01/18 17:00 Mechanical Rate 40 04/01/18 00:55 FiO2 40.0 % 04/02/18 06:30 Tidal Volume 420 03/31/18 18:56 PEEP 5 04/01/18 00:55 Pressure Support 5 04/01/18 17:00 CPAP 5 04/01/18 17:00 Sodium 142 mmol/L (132-148) 04/03/18 12:50 Potassium 3.5 mmol/L (3.6-5.0) L 04/03/18 12:50 Chloride 106 mmol/L (98-107) 04/03/18 12:50 Carbon Dioxide 25 mmol/L (21-33) 04/03/18 12:50 Anion Gap 14 (10-20) 04/03/18 12:50 BUN 6 mg/dL (7-21) L 04/03/18 12:50 Creatinine 0.4 mg/dl (0.8-1.5) L 04/03/18 12:50 Est GFR ( Amer) > 60 04/03/18 12:50 Est GFR (Non-Af Amer) > 60 04/03/18 12:50 POC Glucose (mg/dL) 193 mg/dL (65-110) H 04/03/18 11:23 Random Glucose 189 mg/dL (70-110) H 04/03/18 12:50 Hemoglobin A1c 11.1 % (4.2-6.5) H 04/02/18 06:30 Serum Osmolality 330 mosm/kg (272-300) H 03/31/18 20:15 Calcium 8.3 mg/dL (8.4-10.5) L 04/03/18 12:50 Phosphorus 2.5 mg/dL (2.5-4.5) 04/03/18 07:30 Magnesium 2.1 mg/dL (1.7-2.2) 04/03/18 07:30 Total Bilirubin 0.7 mg/dL (0.2-1.3) 04/03/18 12:50 AST 84 U/L (17-59) H 04/03/18 12:50 ALT 40 U/L (7-56) 04/03/18 12:50 Alkaline Phosphatase 111 U/L (38-126) 04/03/18 12:50 NT-Pro-B Natriuret Pep 313 pg/mL (0-450) 04/01/18 01:03 Total Protein 5.8 g/dL (5.8-8.3) 04/03/18 12:50 Albumin 3.1 g/dL (3.0-4.8) 04/03/18 12:50 Globulin 2.7 gm/dL 04/03/18 12:50 Albumin/Globulin Ratio 1.1 (1.1-1.8) 04/03/18 12:50 Triglycerides 134 mg/dL (35-160) 04/01/18 05:05 Cholesterol 141 mg/dL (130-200) 04/01/18 05:05 LDL Cholesterol Direct 73 mg/dL (0-129) 04/01/18 05:05 HDL Cholesterol 52 mg/dL (29-60) 04/01/18 05:05 Amylase 274 U/L (35-125) H 04/01/18 05:05 Lipase 273 U/L (23-300) 04/01/18 10:20 Procalcitonin 0.45 NG/ML (0.19-0.49) 03/31/18 21:20 TSH 3rd Generation 0.44 mIU/mL (0.46-4.68) L 04/02/18 04:50 Arterial Blood Potassium 2.9 mmol/L (3.6-5.2) L 04/01/18 17:00 Venous Blood Potassium 3.9 mmol/L (3.6-5.2) 03/31/18 21:20 Urine Color Yellow (YELLOW) 03/31/18 21:26 Urine Appearance Clear (CLEAR) 03/31/18 21:26 Urine pH 6.0 (4.7-8.0) 03/31/18 21:26 Ur Specific [place] >= 1.030 (1.005-1.035) 03/31/18 21:26 Urine Protein 30 mg/dL (<30 mg/dL) H 03/31/18 21:26 Urine Glucose (UA) 250 mg/dL (NEGATIVE) H 03/31/18 21:26 Urine Ketones >=80 mg/dL (NEGATIVE) 03/31/18 21:26 Urine Blood Moderate (NEGATIVE) H 03/31/18 21:26 Urine Nitrate Negative (NEGATIVE) 03/31/18 21:26 Urine Bilirubin Negative (NEGATIVE) 03/31/18 21:26 Urine Urobilinogen 0.2 E.U./dL (<1 E.U./dL) 03/31/18 21:26 Ur Leukocyte Esterase Negative Fatimah/uL (NEGATIVE) 03/31/18 21:26 Urine RBC 20 - 25 /hpf (0-2) 03/31/18 21:26 Urine WBC 2 - 5 /hpf (0-6) 03/31/18 21:26 Ur Epithelial Cells 6 - 8 /hpf (0-5) 03/31/18 21:26 HIV 1&2 Ag/Ab, 4th Gen Nonreactive (Nonreactive) 04/01/18 05:10 - Hospital Course Hospital Course: 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 Pt was noted to be in respiratory distress and minimally responsive to questions. Pt's father stated that the pt did not live with him and was unsure of what medications he was taking or whether he was compliant, but stated that the pt was recently d/c'd from a hospital in [place]. ROS at time was limited due to pt's condition. Labs in ED were noted to be a pH of 6.8, glucose 551, AG 35. Pt received 3 L of NS fluids. Pt was also started on insulin drip, potassium was noted to be 6.1. Pt was thus intubated in the ED to protect airway and due to mental status. Pt was admitted for DKA, metabolic alkalosis, and severe sepsis. Pt was on insulin drip until fingersticks were better controlled in ICU, pt was extubated the next day. Pt regained mental status, and was transferred to [facility], and was downgraded from ICU to medical floor. Pt was controlled on 14 units levemir and was tolerating regular diet on day of discharge. Pt was also ambulating, voiding well, pos BM, and shortness of breath improved. Dr. Severino (Endocrinology) was consulted for management of DKA and control of blood sugar, and recommended pt be discharged on 14 units levemir at bedtime and 6-10 units humalog premeal based on measured fingersticks at home. Pt was educated about importance of medication compliance and checking fingersticks at home, in addition to maintaining a carb-controlled diet. He was d/c to home on 04/03/18 with instructions to follow-up at [facility] on 04/09/18 at 3:00 pm. Pt seen, examined with, and plan d/w Dr. Trevino, attending. Discharge Exam - Head Exam Head Exam: ATRAUMATIC, NORMAL INSPECTION, NORMOCEPHALIC Discharge Plan - Discharge Medications Prescriptions: Insulin Detemir [Levemir] 14 unit SC HS 30 Days #30 unit - Follow Up Plan Condition: GOOD Disposition: HOME/ ROUTINE Instructions: Diabetes Exchange Diet, Hypokalemia (DC), How to Give a Subcutaneous Injection, Diabetes Type 1, Adult (DC), Sepsis, Adult (DC), Counting Carbs If You Do Not Use Insulin, Chest Pain (DC), Diabetic Ketoacidosis (DC) Additional Instructions: Please follow up at [facility] for appointment on 04/09/18 at 3:00 pm. Please return to the emergency room if symptoms recur or worsen. Please go to your pharmacy and fill Levemir. As per Dr. Severino (Stage Technician), take Levemir 14 units at bedtime, and correct from 6 to 10 units based on measured fingersticks during meals. Please check fingersticks routinely. Please abide by low carbohydrate diet to keep fingersticks in check. Referrals: [facility] at [facility] [place] [Outside] Dede Severino MD [Medical Doctor] - <Chris Trevino - Last Filed: 04/03/18 18:01> Provider - Provider Date of Admission: 03/31/18 18:40 Attending physician: Chris Trevino MD Hospital Course - Lab Results Lab Results: Micro Results 03/31/18 21:08 Blood Blood Culture - Preliminary NO GROWTH AFTER 48 HOURS 04/01/18 00:00 Nose MRSA Culture (Admit) - Final MRSA NOT DETECTED 03/31/18 21:26 Urine,Curiel Urine Culture - Final No Growth (<1,000 CFU/ML) Most Recent Lab Values WBC 6.3 10^3/ul (4.5-11.0) D 04/03/18 07:30 RBC 4.07 10^6/uL (3.5-6.1) 04/03/18 07:30 Hgb 11.8 g/dL (14.0-18.0) L 04/03/18 07:30 Hct 33.0 % (42.0-52.0) L 04/03/18 07:30 MCV 81.1 fl (80.0-105.0) 04/03/18 07:30 MCH 29.0 pg (25.0-35.0) 04/03/18 07:30 MCHC 35.8 g/dl (31.0-37.0) 04/03/18 07:30 RDW 13.1 % (11.5-14.5) 04/03/18 07:30 Plt Count 207 10^3/uL (120.0-450.0) 04/03/18 07:30 MPV 8.7 fl (7.0-11.0) 04/03/18 07:30 Gran % 85.7 % (50.0-68.0) H 03/31/18 17:03 Lymph % (Auto) 8.3 % (22.0-35.0) L 03/31/18 17:03 [place] % (Auto) 5.9 % (1.0-6.0) 03/31/18 17:03 Eos % (Auto) 0.0 % (1.5-5.0) L 03/31/18 17:03 Baso % (Auto) 0.1 % (0.0-3.0) 03/31/18 17:03 Gran # 22.98 (1.4-6.5) H 03/31/18 17:03 Lymph # (Auto) 2.2 (1.2-3.4) 03/31/18 17:03 [place] # (Auto) 1.6 (0.1-0.6) H 03/31/18 17:03 Eos # (Auto) 0.0 (0.0-0.7) 03/31/18 17:03 Baso # (Auto) 0.04 K/mm3 (0.0-2.0) 03/31/18 17:03 PT 10.9 SECONDS (9.4-12.5) 04/01/18 05:20 INR 0.95 (0.93-1.08) 04/01/18 05:20 APTT 24.1 Seconds (25.1-36.5) L 04/01/18 05:20 pCO2 36 mm/Hg (35-45) 04/02/18 06:30 pO2 109.0 mm/Hg (80-100) H 04/02/18 06:30 HCO3 20.8 mmol/L (21-28) L 04/02/18 06:30 ABG pH 7.37 (7.35-7.45) 04/02/18 06:30 ABG Total CO2 21.9 mmol.L (22-28) L 04/02/18 06:30 ABG O2 Saturation 99.0 % (95-98) H 04/02/18 06:30 ABG O2 Content 24.3 ML/dl (15-23) H 04/02/18 06:30 ABG Base Excess -3.8 mmol/L (-2.0-3.0) L 04/02/18 06:30 ABG Hemoglobin 17.7 g/dL (11.7-17.4) H 04/02/18 06:30 ABG Carboxyhemoglobin 1.3 % (0.5-1.5) 04/02/18 06:30 POC ABG HHb (Measured) 1.0 % (0-5) 04/02/18 06:30 ABG Methemoglobin 0.6 % (0.0-3.0) 04/02/18 06:30 ABG O2 Capacity 24.5 mL/dl (16-24) H 04/02/18 06:30 ABG Potassium 2.9 mmol/L (3.6-5.2) L 04/01/18 17:00 VBG pH 7.03 (7.32-7.43) L* 03/31/18 21:20 VBG pCO2 52.0 (40-60) 03/31/18 21:20 VBG HCO3 13.7 mmol/l (21-28) L 03/31/18 21:20 VBG Total CO2 15.3 mmol.L (22-28) L 03/31/18 21:20 VBG O2 Sat (Calc) 87.7 % (40-65) H 03/31/18 21:20 VBG Base Excess -17.1 mmol/L (0.0-2.0) L 03/31/18 21:20 VBG Potassium 3.9 mmol/L (3.6-5.2) 03/31/18 21:20 Hgb O2 Saturation 97.2 % (95.0-98.0) 04/02/18 06:30 Sodium 147.0 mmol/L (132-148) 04/01/18 17:00 Chloride 121.0 mmol/L (98-107) H 04/01/18 17:00 Glucose 140 mg/dl (75-110) H 04/01/18 17:00 Lactate 1.0 mmol/L (0.7-2.1) 04/01/18 17:00 Mechanical Rate 40 04/01/18 00:55 FiO2 40.0 % 04/02/18 06:30 Tidal Volume 420 03/31/18 18:56 PEEP 5 04/01/18 00:55 Pressure Support 5 04/01/18 17:00 CPAP 5 04/01/18 17:00 Sodium 142 mmol/L (132-148) 04/03/18 12:50 Potassium 3.5 mmol/L (3.6-5.0) L 04/03/18 12:50 Chloride 106 mmol/L (98-107) 04/03/18 12:50 Carbon Dioxide 25 mmol/L (21-33) 04/03/18 12:50 Anion Gap 14 (10-20) 04/03/18 12:50 BUN 6 mg/dL (7-21) L 04/03/18 12:50 Creatinine 0.4 mg/dl (0.8-1.5) L 04/03/18 12:50 Est GFR ( Amer) > 60 04/03/18 12:50 Est GFR (Non-Af Amer) > 60 04/03/18 12:50 POC Glucose (mg/dL) 200 mg/dL (65-110) H 04/03/18 16:06 Random Glucose 189 mg/dL (70-110) H 04/03/18 12:50 Hemoglobin A1c 11.1 % (4.2-6.5) H 04/02/18 06:30 Serum Osmolality 330 mosm/kg (272-300) H 03/31/18 20:15 Calcium 8.3 mg/dL (8.4-10.5) L 04/03/18 12:50 Phosphorus 2.5 mg/dL (2.5-4.5) 04/03/18 07:30 Magnesium 2.1 mg/dL (1.7-2.2) 04/03/18 07:30 Total Bilirubin 0.7 mg/dL (0.2-1.3) 04/03/18 12:50 AST 84 U/L (17-59) H 04/03/18 12:50 ALT 40 U/L (7-56) 04/03/18 12:50 Alkaline Phosphatase 111 U/L (38-126) 04/03/18 12:50 NT-Pro-B Natriuret Pep 313 pg/mL (0-450) 04/01/18 01:03 Total Protein 5.8 g/dL (5.8-8.3) 04/03/18 12:50 Albumin 3.1 g/dL (3.0-4.8) 04/03/18 12:50 Globulin 2.7 gm/dL 04/03/18 12:50 Albumin/Globulin Ratio 1.1 (1.1-1.8) 04/03/18 12:50 Triglycerides 134 mg/dL (35-160) 04/01/18 05:05 Cholesterol 141 mg/dL (130-200) 04/01/18 05:05 LDL Cholesterol Direct 73 mg/dL (0-129) 04/01/18 05:05 HDL Cholesterol 52 mg/dL (29-60) 04/01/18 05:05 Amylase 274 U/L (35-125) H 04/01/18 05:05 Lipase 273 U/L (23-300) 04/01/18 10:20 Procalcitonin 0.45 NG/ML (0.19-0.49) 03/31/18 21:20 TSH 3rd Generation 0.44 mIU/mL (0.46-4.68) L 04/02/18 04:50 Arterial Blood Potassium 2.9 mmol/L (3.6-5.2) L 04/01/18 17:00 Venous Blood Potassium 3.9 mmol/L (3.6-5.2) 03/31/18 21:20 Urine Color Yellow (YELLOW) 03/31/18 21:26 Urine Appearance Clear (CLEAR) 03/31/18 21:26 Urine pH 6.0 (4.7-8.0) 03/31/18 21:26 Ur Specific [place] >= 1.030 (1.005-1.035) 03/31/18 21:26 Urine Protein 30 mg/dL (<30 mg/dL) H 03/31/18 21:26 Urine Glucose (UA) 250 mg/dL (NEGATIVE) H 03/31/18 21:26 Urine Ketones >=80 mg/dL (NEGATIVE) 03/31/18 21:26 Urine Blood Moderate (NEGATIVE) H 03/31/18 21:26 Urine Nitrate Negative (NEGATIVE) 03/31/18 21:26 Urine Bilirubin Negative (NEGATIVE) 03/31/18 21:26 Urine Urobilinogen 0.2 E.U./dL (<1 E.U./dL) 03/31/18 21:26 Ur Leukocyte Esterase Negative Fatimah/uL (NEGATIVE) 03/31/18 21:26 Urine RBC 20 - 25 /hpf (0-2) 03/31/18 21:26 Urine WBC 2 - 5 /hpf (0-6) 03/31/18 21:26 Ur Epithelial Cells 6 - 8 /hpf (0-5) 03/31/18 21:26 HIV 1&2 Ag/Ab, 4th Gen Nonreactive (Nonreactive) 04/01/18 05:10 Discharge Exam - Eye Exam Eye Exam: EOMI - ENT Exam ENT Exam: Normal Exam - Neck Exam Neck exam: Full Rom - Respiratory Exam Respiratory Exam: Clear to PA & Lateral. absent: Rhonchi - Cardiovascular Exam Cardiovascular Exam: REGULAR RHYTHM, +S1, +S2 - GI/Abdominal Exam GI & Abdominal Exam: Normal Bowel Sounds, Soft. absent: Organomegaly, Tenderness - Extremities Exam Extremities exam: normal inspection - Neurological Exam Neurological exam: Alert, Oriented x3 - Psychiatric Exam Psychiatric exam: Normal Affect, Normal Mood Discharge Plan - Follow Up Plan Patient education suggested?: Yes Attending/Attestation - Attestation I have personally seen and examined this patient.: Yes I have fully participated in the care of the patient.: Yes I have reviewed all pertinent clinical information, including history, physical exam and plan: Yes Notes (Text): 04/03/18 17:57 27 year old male with past medical history of diabetes, medication noncompliance who presented with DKA which resolved after treatment with iv fluids and insulin drip. He was on insulin ss and levemir. He was seen by endocrinology. He was also found to have SIR with leukocytosis and lactic acidosis which improved. He was started on empiric antibiotics which were later discontinued as cultures were negative. Hypokalemia was repleted prior to discharge. Patient is discharged home to follow up at [facility]. Counselled on medication and diet compliance. Monitor fingersticks at home and keeping log book. Chris Trevino MD Hospitalist.
--- NOTE | 2018-04-03 17:15 | PN ---
DATE: 04/03/2018 ENDOCRINOLOGY FOLLOWUP NOTE LOCATION: Room 578. SUBJECTIVE: This is a 27-year-old male with recent uncontrolled type 1 insulin-dependent diabetes presenting here with diabetic ketoacidosis and dehydration related to drug omission and is now being followed closely for metabolic management. His oral intake is extremely variable and suboptimal at this time with very nil meal portions as per the nursing staff. His glucose values have ranged today from 82-193 mg/dL. His bedtime glucose was actually 145. The chemistry showed a BUN of 6, sodium 142, potassium 3.5, chloride 106, CO2 of 25, glucose 189 and creatinine 0.4. So at this time, we will continue the same basal insulin given as Levemir at 14 units subcu at bedtime daily as given. As per discussion with the internist medical doctor md, we will actually advise that for now he will be taking the same basal insulin, but upon discharge today with intake of his preferred [place] food, then we expect higher glycemic accelerations at home. He has been advised to restart his Humalog and to give between 6-10 units before each meal depending on his glucose monitoring at home. He is actually using his father's Humalog supplies as the patient has no health insurance at this time. He has also been advised to follow up with his family doctor for ongoing medical and diabetic followup and management. Dede Severino MD
--- NOTE | 2018-04-04 03:19 | PN ---
DATE: 04/03/2018 SUBJECTIVE: The patient is seen earlier this morning, in room 578, bed 2. No fevers, no chills. No nausea, no vomiting. PHYSICAL EXAMINATION: VITAL SIGNS: Temperature is 98, blood pressure is 120/70, respiratory rate of 18. HEENT: Unremarkable. NECK: Supple. LUNGS: Have decreased breath sounds. HEART: Normal S1 and S2. ABDOMEN: Soft, nontender. LABORATORY DATA: Reveals a white count of 6.3, hemoglobin of 11. Coagulation is noted. BUN of 6, creatinine of 0.4. Pathology is negative. ASSESSMENT AND PLAN: This is a 27-year-old male who was admitted with diabetes, high cholesterol and patient with systemic inflammatory response syndrome, respiratory failure, intubated on ventilator, with diabetic ketoacidosis, metabolic acidosis, increased cultures negative and imaging negative. The patient looked stable at this morning with a white count of 6.3. Antonio Mclean MD
== END 2018-04-03 19:03 | disposition home or self-care (01) | DRG 871 ==
LOC: ED 16:56 → ERH 18:40 → CCU 20:40 → 5RSO 04-02 16:18
PROVIDERS: ADMIT Internal Medicine; ATTEND Internal Medicine
PROC: 5A1945Z Respiratory Ventilation, 24-96 Consecutive Hours (ICD-10-PCS; principal; 2018-03-31)
PROC: 0BH17EZ Insertion of Endotracheal Airway into Trachea, Via Natural or Artificial Opening (ICD-10-PCS; 2018-03-31)
DX: A41.9 Sepsis, unspecified organism (principal); E10.10 Type 1 diabetes mellitus with ketoacidosis without coma; J96.00 Acute respiratory failure, unspecified whether with hypoxia or hypercapnia; E87.3 Alkalosis; R65.20 Severe sepsis without septic shock; E55.9 Vitamin D deficiency, unspecified; E78.00 Pure hypercholesterolemia, unspecified; E87.5 Hyperkalemia; E86.0 Dehydration; E87.6 Hypokalemia; F17.200 Nicotine dependence, unspecified, uncomplicated; E78.5 Hyperlipidemia, unspecified; Z91.14 Patient's other noncompliance with medication regimen; Q53.20 Undescended testicle, unspecified, bilateral; Z83.3 Family history of diabetes mellitus; Z79.4 Long term (current) use of insulin